=== PATIENT | female | born 1955 | race Asian ===

== ENCOUNTER 2018-12-23 18:42 | Inpatient (IN) | payer MEDICARE, OTHER ==
[~2018-12-23] VITALS: Ht 147.3 cm; Wt 86.4 kg
[2018-12-23 19:02] VITALS: Ht 147.3 cm; Wt 86.4 kg
[2018-12-23] MEDS ORDERED: ACETAMINOPHEN 650 MG SUPP PR ONE (19:30)
[2018-12-23] MEDS ORDERED: CEFTRIAXONE 1 GM/50 ML (PMX) 50 ML IVPB ONE (19:30)
[2018-12-23] MEDS ORDERED: ONDANSETRON 4 MG INJ IV STA (19:36)
--- NOTE | 2018-12-23 20:12 | ERD ---
ER Documentation Chief Complaint Chief Complaint BIB RA fr home: 2wks of fever, lethargy, cough, congestion HPI This is a 63-year-old woman brought in by EMS from home for fever and vomiting beginning today in about 2 to 3 days of cough and congestion. Daughters were later at the bedside state that today she has been feeling very weak and has had multiple episodes of clear nonbloody nonbilious emesis. Patient has had no complaints of chest pain, no diarrhea, no headache or blurry vision, no loss of consciousness. Patient was transported here dyspneic and febrile ROS All systems reviewed and are negative except as per history of present illness. Allergies Allergies: Coded Allergies: ciprofloxacin (Verified Allergy, Unknown, 12/23/18) hydromorphone (Verified Allergy, Unknown, 12/23/18) hydroxychloroquine (Verified Allergy, Unknown, 12/23/18) PMhx/Soc History of CHF, atrial fibrillation currently using apixaban, history of renal insufficiency recently discontinued hydrochlorothiazide, obesity, diabetes mellitus, hypertension FmHx Family History: No diabetes Physical Exam Vitals Vital Signs Date Temp Pulse Resp B/P (MAP) Pulse Ox O2 O2 Flow FiO2 Time Delivery Rate 12/23/18 103.0 19:35 12/23/18 103.3 115 22 190/90 80 19:02 (123) Physical Exam GENERAL: Well-developed, well-nourished, nauseous, dehydrated, febrile. HEENT: Patient has facial edema, pupils equal round reactive to light, no cervical spine deformity or tenderness, no Kernig sign NEURO: Alert and oriented 3, cranial nerves II through XII intact bilaterally, pupils equal round reactive to light CARDIAC: Tachycardic and regular, no murmurs rubs or gallops LUNGS: Poor breath sounds bilaterally, crackles, no wheezing or stridor ABDOMEN: Soft nontender, no guarding, no rigidity, no rebound, no psoas sign no obturator sign. SKIN: Warm and dry to touch, no abrasions, contusions, or hematomas, no lacerations, no ecchymosis, no target lesions, and without ulcers EXTREMITIES: No clubbing cyanosis, 3+ pitting edema in the lower extremities kyler aterally, calves symmetrical PSYCH: Normal affect without agitation or irritability Result Diagram: 5/26/19 1900 5/26/19 1900 Results 24 hrs Laboratory Tests Test 12/23/18 19:00 12/23/18 19:06 12/23/18 19:24 White Blood Count 11.1 10^3/ul Red Blood Count 3.71 10^6/ul Hemoglobin 11.4 g/dl Hematocrit 37.2 % Mean Corpuscular Volume 100.3 fl Mean Corpuscular Hemoglobin 30.7 pg Mean Corpuscular 30.6 g/dl Hemoglobin Concent Red Cell Distribution Width 14.7 % Platelet Count 196 10^3/UL Mean Platelet Volume 10.5 fl Immature Granulocytes % 0.400 % Neutrophils % 77.8 % Lymphocytes % 12.0 % Monocytes % 8.6 % Eosinophils % 0.7 % Basophils % 0.5 % Nucleated Red Blood Cells % 0.0 /100WBC Immature Granulocytes # 0.040 10^3/ul Neutrophils # 8.6 10^3/ul Lymphocytes # 1.3 10^3/ul Monocytes # 1.0 10^3/ul Eosinophils # 0.1 10^3/ul Basophils # 0.1 10^3/ul Nucleated Red Blood Cells # 0.0 10^3/ul Prothrombin Time 14.4 Sec Prothrombin Time Ratio 1.1 INR International 1.11 Normalized Ratio Activated Partial Thromboplast 36.3 Sec Time Sodium Level 139 mmol/L Potassium Level 3.4 mmol/L Chloride Level 103 mmol/L Carbon Dioxide Level 28 mmol/L Anion Gap 8 Blood Urea Nitrogen 20 mg/dl Creatinine 1.09 mg/dl Est Glomerular Filtrat 51 mL/min Rate mL/min Glucose Level 171 mg/dl Lactic Acid Level 2.2 mmol/L Calcium Level 9.1 mg/dl Total Bilirubin 1.0 mg/dl Direct Bilirubin 0.00 mg/dl Indirect Bilirubin 1.0 mg/dl Aspartate Amino 127 IU/L Transf (AST/SGOT) Alanine 81 IU/L Aminotransferase (ALT/SGPT) Alkaline Phosphatase 308 IU/L Troponin I 1.150 ng/ml B-Type Natriuretic Peptide 3690 PG/ML Total Protein 7.4 g/dl Albumin 3.9 g/dl Globulin 3.50 g/dl Albumin/Globulin Ratio 1.11 Lipase 147 U/L POC Venous Lactate 1.9 mmol/L Urine Color YELLOW Urine Clarity CLEAR Urine pH 5.0 Urine Specific [place] 1.012 Urine Ketones NEGATIVE mg/dL Urine Nitrite NEGATIVE mg/dL Urine Bilirubin NEGATIVE mg/dL Urine Urobilinogen 1+ mg/dL Urine Leukocyte Esterase NEGATIVE Rajni/ul Urine Microscopic RBC 5 /HPF Urine Microscopic WBC 5 /HPF Urine Bacteria FEW /HPF Urine Hemoglobin 2+ mg/dL Urine Glucose NEGATIVE mg/dL Urine Total Protein 3+ mg/dl Current Medications Medications Dose Sig/Amilcar Start Time Status Last (Trade) Ordered Route PRN Stop Time Admin Dose Reason Admin 650 mg ONCE ONCE 12/23/18 DC 12/23/18 Acetaminophen [place] 19:30 19:35 (Tylenol 12/23/18 19:31 Supp) Ceftriaxone 50 ml @ ONCE ONCE 12/23/18 DC 12/23/18 Sodium 100 mls/hr IVPB 19:30 19:35 12/23/18 19:59 Ondansetron 4 mg ONCE STAT 12/23/18 DC 12/23/18 HCl (Zofran IV 19:36 19:46 Inj) 12/23/18 19:37 Procedures/MDM IV line was established patient was placed on monitor worker rhythm strip revealed a sinus rhythm at about 90 bpm with upright P and T waves. Patient was febrile, blood and urine cultures have been ordered results are pending I will follow-up. 1 view chest x-ray performed, read by me revealed cardiomegaly and bilateral pulmonary edema possible left lower lobe infiltrate as well, no pneumothorax, no air under the diaphragm. EKG #1 performed, read by me reveals a normal sinus rhythm at 93 bpm, normal axis, narrow QRS complex, no concerning ST elevations or depressions noted, diffuse flattened T waves IV fluids will be held as I suspect decompensated heart failure and pulmonary edema. CBC was within normal limits, electrolytes revealed BUN/creatinine of 20/1, liver function tests unremarkable, troponin positive at 1.2, BNP elevated at about 4000, lactic acid level number one 2.2, second level 1.9 Flu swabs were negative. I administered ceftriaxone 1 g IV, acetaminophen per rectum for fever, Zofran 4 mg IV for nausea and vomiting. Patient was also given aspirin 300 mg per rectum for cardioprotective measures. Patient's infectious symptoms have not stabilized and the patient is at risk of rapid decompensation. The patient will be admitted for careful hydration, antibiotic therapy, and infectious source control. SEVERE SEPSIS CRITERIA: Infectious source: Pulmonary End organ damage indicated by: Lactate > 2.0 mmol/L And respiratory failure requiring BiPAP therapy SEPSIS MANAGEMENT Time of recognition of sepsis: Upon arrival. Time of recognition of severe sepsis: No severe sepsis at this time. Time of recognition of septic shock: No septic shock at this time. 3 HOUR BUNDLE Blood cultures x 2 before broad-spectrum antibiotics: Yes 30 ml/kg NS bolus not administered Initial lactate 2.2 Repeat lactate 1.9 SEPTIC SHOCK ASSESSMENT: No lactic acid > 4.0 No persistent hypotension (SBP < 90 or 40 mmHg drop, MAP < 65) despite 30 mL/kg IV fluid bolus VOLUME REASSESSMENT FOR SEPTIC SHOCK: Reevaluation Time: 2009 Temp 99.9 F, BP 180/90, pulse 80 bpm, respiratory rate 20 breaths/min, oxygen saturation 96% Heart regular rate & rhythm Lungs poor breath sounds bilaterally, crackles Skin warm & dry Cap Refill less than 2 seconds Peripheral pulses radially present PERSISTENT HYPOTENSION TREATMENT: Comfort care no Central line not Required Vasopressor started not required I considered further perfusion assessment with CVP measurement, SCVO2, bedside ultrasound volume assessment, passive leg raise, trial of further fluid bolus. And proceeded with 30 ml/kg fluid bolus of NSS, broad spectrum antibiotics, and admission. CRITICAL CARE: Critical care time 55 minutes, this was time separate from other billable pro cedures. Emergent fluid management while maintaining close respiratory support. Provision of immediate and broad-spectrum antibiotic therapy. Simultaneous assessment for possible sources in order to direct targeted therapy. Consideration for invasive and chemical support to prevent cardiopulmonary collapse. Critical care time is independent of procedures performed. Accepting Care Team: Current data and ongoing care discussed. Time: Time of admission Primary Provider: Hospitalist Consulting: Cardiology, infectious disease Outstanding Data: none EKG #2 performed, read by me revealed a normal sinus rhythm at 83 bpm, normal axis, narrow QS complex, no concerning ST elevations or depressions noted diffuse flattened T waves Departure Diagnosis: Primary Impression: Sepsis Sepsis type: sepsis due to unspecified organism Qualified Codes: A41.9 - Sepsis, unspecified organism Additional Impressions: Non-STEMI (non-ST elevated myocardial infarction) CHF (congestive heart failure) Heart failure type: combined systolic and diastolic Heart failure chronicity: acute Qualified Codes: I50.41 - Acute combined systolic (congestive) and diastolic (congestive) heart failure Condition: Serious ADRIAN HANCOCK MD December 23, 2018 20:12
[2018-12-23] MEDS ORDERED: ACETAMINOPHEN 650MG/20.3ML CUP PO PRN (20:30)
[2018-12-23] MEDS ORDERED: ASPIRIN 81 MG TAB PO ONE (20:30)
[2018-12-23] MEDS ORDERED: ENOXAPARIN 40 MG/0.4 ML SYG SC SCH (20:30)
[2018-12-23] MEDS ORDERED: ALBUTEROL/IPRATROPIUM (NEB) 3 ML AMP NEB PRN (20:30)
[2018-12-23] MEDS ORDERED: VANCOMYCIN IV PER PHARMACY XX SCH (20:30)
[2018-12-23] MEDS ORDERED: ASPIRIN 300 MG SUPP PR ONE (20:30)
[2018-12-23] MEDS ORDERED: NITROGLYCERIN (SL) 0.4 MG TAB SL PRN (20:30)
[2018-12-23] MEDS ORDERED: FUROSEMIDE 40 MG INJ IV ONE (20:30)
[2018-12-23] MEDS ORDERED: VANCOMYCIN HCL 1.5 GM in SOD CHLORIDE 0.9% 250 ML IVPB SCH (21:30)
[2018-12-23 21:58] VITALS: PULSE 78
--- NOTE | 2018-12-23 22:08 | HP ---
Date/Time of Note Date/Time of Note DATE: 12/23/18 TIME: 22:08 Assessment/Plan VTE Prophylaxis Pharmacological prophylaxis: heparin Lines/Catheters IV Catheter Type (from Nrs): Saline Lock Assessment/Plan Assessment/Plan 1. Positive troponin: NSTEMI vs sepsis -Will be admitted to ICU -Treatment dose Lovenox -IV antibiotic -Serial troponin -2D echo -Follow-up culture results -Cardiology consult 2. Sepsis: as evidenced by fever and tachycardia as well as lactic acidosis: Likely secondary to pneumonia -IV antibiotic -Trend lactate -Gentle hydration, given chest x-ray findings -Follow-up culture results 3. CHF -Will diurese -Follow-up 2D echo 4. Hypertensive urgency: Adjust antihypertensive as needed 5. History of A-fib: Rate controlled, sinus 6. Right lower extremity healing ulcer: Patient on antibiotic 7. Rheumatoid arthritis: Pain management, supportive care Result Diagram: 12/23/18 1900 12/23/180 Results 24hrs Laboratory Tests Test 12/23/18 19:00 12/23/18 19:06 12/23/18 19:24 12/23/18 20:55 White Blood Count 11.1 H Red Blood Count 3.71 L Hemoglobin 11.4 L Hematocrit 37.2 Mean Corpuscular 100.3 Volume Mean Corpuscular 30.7 Hemoglobin Mean Corpuscular 30.6 L Hemoglobin Concent Red Cell 14.7 H Distribution Width Platelet Count 196 Mean Platelet Volume 10.5 H Immature 0.400 Granulocytes % Neutrophils % 77.8 H Lymphocytes % 12.0 L Monocytes % 8.6 Eosinophils % 0.7 Basophils % 0.5 Nucleated Red Blood 0.0 Cells % Immature 0.040 H Granulocytes # Neutrophils # 8.6 H Lymphocytes # 1.3 Monocytes # 1.0 H Eosinophils # 0.1 Basophils # 0.1 Nucleated Red Blood 0.0 Cells # Prothrombin Time 14.4 Prothrombin Time 1.1 Ratio INR International 1.11 Normalized Ratio Activated 36.3 H Partial Thromboplast Time Sodium Level 139 Potassium Level 3.4 L Chloride Level 103 Carbon Dioxide Level 28 Anion Gap 8 Blood Urea Nitrogen 20 Creatinine 1.09 H Est Glomerular 51 L Filtrat Rate mL/min Glucose Level 171 Lactic Acid Level 2.2 *H 1.6 Calcium Level 9.1 Total Bilirubin 1.0 Direct Bilirubin 0.00 Indirect Bilirubin 1.0 Aspartate Amino 127 H Transf (AST/SGOT) Alanine 81 H Aminotransferase (AL T/SGPT) Alkaline Phosphatase 308 H Troponin I 1.150 *H B-Type Natriuretic 3690 H Peptide Total Protein 7.4 Albumin 3.9 Globulin 3.50 H Albumin/Globulin 1.11 Ratio Lipase 147 POC Venous Lactate 1.9 Urine Color YELLOW Urine Clarity CLEAR Urine pH 5.0 Urine Specific 1.012 [place] Urine Ketones NEGATIVE Urine Nitrite NEGATIVE Urine Bilirubin NEGATIVE Urine Urobilinogen 1+ H Urine Leukocyte NEGATIVE Esterase Urine Microscopic 5 RBC Urine Microscopic 5 WBC Urine Bacteria FEW A Urine Hemoglobin 2+ H Urine Glucose NEGATIVE Urine Total Protein 3+ H HPI/ROS Admit Date/Time Admit Date/Time Hx of Present Illness Patient is a 63-year-old female with a history of hypertension, atrial fibrillation, rheumatoid arthritis who was brought to the ER for fever, cough and generalized weakness. Denied chest pain. Reported some shortness of breath. She also reported vomiting, nonbloody nonbilious. When presented to ER, she was febrile with a temperature of 103.3, heart rate 115, oxygen saturation 80% on room air. Labs shows a troponin of 1.15, lactic acid 2.2, creatinine 1.09, WBC 11. Chest x-ray shows bilateral hazy opacity, likely interstitial edema done and pneumonia. Chest x-ray also shows cardiomegaly and central pulmonary vascular congestion. PMH/Family/Social Past Medical History Medical History: other (See HPI) Coded Allergies: Penicillins (Verified Allergy, Unknown, rash, 05/28/17) Past Surgical History Past Surgical Hx: other (See HPI) Family History Significant Family History: no pertinent family hx Social History Alcohol Use: none Smoking Status: Never smoker Drug Use: none Exam Constitutional: other (No acute distress) Head: normocephalic Eyes: PERRL Respiratory: normal air movement Cardiovascular: regular rate and rhythm Gastrointestinal: soft Extremities: edema Medications Current Medications Ondansetron HCl (Zofran Inj) 4 mg Q6H PRN IV NAUSEA AND/OR VOMITING; Start 12/23/18 at 20:30 Albuterol/ Ipratropium (Duoneb) 3 ml Q2H RESP THERAPY PRN NEB SHORTNESS OF BREATH; Start 12/23/18 at 20:30 Nitroglycerin (Nitroglycerin (Sl Tab) 0.4 Mg) 1 tab Q5M PRN SL CHEST PAIN; Start 12/23/18 at 20:30 Acetaminophen (Tylenol Liquid) 650 mg Q6H PRN PO PAIN LEVEL 1-3 OR FEVER; Start 12/23/18 at 20:30 Pantoprazole (Protonix Tab) 40 mg DAILY@06 PO ; Start 12/24/18 at 06:00 Enoxaparin Sodium (Lovenox) 40 mg DAILY SC Last administered on 12/23/18at 20:36; Admin Dose 40 MG; Start 12/23/18 at 20:30 Vancomycin HCl (Vanco Iv Per Pharmacy) VANCOMYCIN PER PHARMACY PER PROTOCOL XX ; Start 12/23/18 at 20:30 Vancomycin HCl 1.5 gm/Sodium Chloride 250 ml @ 83.333 mls/ hr Q24H IVPB Last administered on 12/23/18at 21:05; Admin Dose 83.333 MLS/HR; Start 12/23/18 at 21:30; Stop 12/24/18 at 05:59 Vancomycin/Sodium Chloride 250 ml @ 125 mls/hr Q12H IVPB ; Start 12/24/18 at 09:00 Coded Allergies: ciprofloxacin (Verified Allergy, Unknown, 12/23/18) hydromorphone (Verified Allergy, Unknown, 12/23/18) hydroxychloroquine (Verified Allergy, Unknown, 12/23/18) Social History Smoking Status: Never smoker Exam/Review of Systems Vital Signs Vitals Vital Signs Date Temp Pulse Resp B/P (MAP) Pulse Ox O2 O2 Flow FiO2 Time Delivery Rate 12/23/18 70 20 144/77 100 Room Air 21:51 (99) 12/23/18 40 21:34 12/23/18 102.4 20:44 WILLIE GLEASON MD December 23, 2018 22:08
[2018-12-23 22:12] VITALS: PULSE 72
[2018-12-23 23:00] VITALS: BP 109/75; PULSE 70; PULSE 72; RESP 20
[2018-12-24] VITALS (25 sets, daily range): BP systolic 96–148; BP diastolic 53–87; PULSE 60–70; RESP 13–24
[2018-12-24] MEDS: ONDANSETRON 4 MG INJ IV PRN ×2 (06:06→17:11)
[2018-12-24] MEDS: PANTOPRAZOLE (EC) 40 MG TAB PO SCH (06:07)
[2018-12-24] MEDS ORDERED: TRAM50TA PO (07:01)
[2018-12-24] MEDS ORDERED: PRED1TAB2 PO (07:01)
[2018-12-24] MEDS ORDERED: APIX2.5T PO (07:02)
[2018-12-24] MEDS ORDERED: AMIO100T4 PO (07:02)
[2018-12-24] MEDS ORDERED: GABA100C14 PO (07:02)
[2018-12-24] MEDS ORDERED: ERGO2000 PO (07:02)
[2018-12-24] MEDS ORDERED: LEFL10TA PO (07:03)
[2018-12-24] MEDS ORDERED: METO-319 PO (07:03)
[2018-12-24] MEDS ORDERED: ATOR20TA38 PO (07:04)
[2018-12-24] MEDS ORDERED: OXYB5TAB22 PO (07:04)
[2018-12-24] MEDS ORDERED: TOFA11TA PO (07:04)
[2018-12-24] MEDS ORDERED: LATA2.5D19 BOTH EYES (07:05)
[2018-12-24] MEDS ORDERED: DULA1.5P SQ (07:06)
[2018-12-24] MEDS ORDERED: INSU100I33 SC (07:06)
[2018-12-24] MEDS ORDERED: NOVO3I SC ×2 (07:06)
[2018-12-24] MEDS ORDERED: CLON-379 PO (07:07)
[2018-12-24] MEDS ORDERED: ENOXAPARIN 100 MG/ML SYG SC SCH (08:00)
[2018-12-24] MEDS ORDERED: VANCOMYCIN 750 MG (PMX) 250 ML IVPB SCH (09:00)
--- NOTE | 2018-12-24 09:25 | CONS ---
Assessment/Plan Assessment/Plan Hospital Course (Demo Recall) 63 yo presenting with high fever and reported sinus tachycardia (ekg not available), with rise and fall in troponin. Symptoms are not classic for a thrombotic [place], and this could be a demand-mediated troponin release, a type 2 [place]. Impression: Elevated troponin, most likely demand mediated type 2 [place] Fever and sepsis with possible pneumonia Hypertension, controlled at present Reported h/o paroxysmal afib, on apixaban Rheumatoid arthritis Acute renal insufficiency Recommendations: Treat underlying febrile illness Will resume home cardiac meds -- apixaban (which given her age and body size should be 5 mg, not 2.5 mg), amiodarone, metoprolol succinate, and atorvastatin Will give daily baby aspirin Also, as she takes daily prednisone, will resume her 3 mg daily. Will defer to the hospitalist to reorder her home meds, which was not done by the binder stripper hand. Lipid panel and a1c ordered for tomorrow Echo pending Lexiscan nuclear to evaluate for significant ischemia, versus coronary marga ography. Would hold off on cath given acute rise in creatinine overnight Consultation Date/Type/Reason Admit Date/Time Date of Consultation: December 24, 2018 Type of Consult Cardiology Reason for Consultation elevated troponin Requesting Provider: LESLIE PERES MD Date/Time of Note DATE: 12/24/18 TIME: 09:04 Hx of Present Illness 63 yo with obesity, rheumatoid arthritis, hypertension, diabetes, presents due to fever. Temp was 103 on presentation. She denies any chest pain or dyspnea. Most of her care is at [facility], and she was hospitalized there twice in October, once for "elevated BUN", and another time for nausea and vomiting. She has a rubber goods inspector tester who she follows up with for hypertension, she denies having a recent stress test, but recalls undergoing an adenosine test many years ago which she recalls as a terrible experience. She is not very active in her daily living, limited by pain from her rheumatoid arthritis. She denies prior WV or stents. At present she is comfortable Constitutional: no complaints Eyes: no complaints ENT: no complaints Respiratory: no complaints; No shortness of breath Cardiovascular: no complaints; No chest pain Gastrointestinal: no complaints Genitourinary: no complaints Musculoskeletal: bone/joint pain Skin: no complaints Neurologic: no complaints Endocrine: no complaints Lymphatic: no complaints Psychological: no complaints Immunologic: no complaints Past Medical History Medical History: diabetes, hypertension, other (rheumatoid arthritis, asthma, paroxysmal atrial fibrillation) Home Meds Reported Medications Clonidine Hcl* (Clonidine Hcl*) 0.1 Mg Tab, 0.1 MG PO PRN PRN for ELEVATED BLOOD PRESSURE, TAB IF SBP GREATER THAN 160 12/24/18 Dulaglutide (Trulicity) 1.5 Mg/0.5 Ml Pen.injctr, 1.5 MG SQ EVERY Monday12/24/18 Insulin Glargine,Hum.rec.anlog (Basaglar Kwikpen U-100) 100 Unit/1 Ml Insuln.pen, 13 UNIT SC QAM, EA 12/24/18 Insulin Aspart* (Novolog Insulin Pen*) 100 Unit/Ml Soln, 7 UNIT SC AC A, EA 12/24/18 Insulin Aspart* (Novolog Insulin Pen*) 100 Unit/Ml Soln, 0 SC .SLIDING SCALE AC, EA 12/24/18 Latanoprost (Xalatan) 2.5 Ml Drops, 1 DROP BOTH EYES QHS, #1 BOTTLE 12/24/18 Tofacitinib Citrate (Xeljanz Xr) 11 Mg Tab.er.24h, 11 MG PO DAILY 12/24/18 Atorvastatin Calcium* (Atorvastatin Calcium*) 20 Mg Tablet, 20 MG PO QHS, #30 TAB 12/24/18 Oxybutynin Chloride* (Ditropan* XL) 5 Mg Tabsr, 5 MG PO QHS, TAB.SA 12/24/18 Metoprolol Succinate* (Toprol XL*) 50 Mg Tab.er.24h, 50 MG PO BID, #30 TAB 12/24/18 Leflunomide* (Arava*) 10 Mg Tablet, 10 MG PO DAILY, TAB 12/24/18 Apixaban* (Eliquis*) 2.5 Mg Tablet, 2.5 MG PO BID, TAB 12/24/18 Amiodarone Hcl* (Amiodarone Hcl*) 100 Mg Tablet, 100 MG PO BID, #30 TAB 12/24/18 Gabapentin* (Gabapentin*) 100 Mg Capsule, 100 MG PO TID, #90 CAP 12/24/18 Ergocalciferol (Vitamin D2) (VITAMIN D2) 2,000 Unit Tablet, 2000 UNIT PO DAILY, TAB 12/24/18 Tramadol Hcl* (Ultram*) 50 Mg Tablet, 100 MG PO Q12 PRN for PAIN, TAB 12/24/18 Prednisone* (Prednisone*) 1 Mg Tablet, 3 MG PO DAILY, TAB 12/24/18 Medications Current Medications Ondansetron HCl (Zofran Inj) 4 mg Q6H PRN IV NAUSEA AND/OR VOMITING Last administered on 12/24/18at 06:06; Admin Dose 4 MG; Start 12/23/18 at 20:30 Albuterol/ Ipratropium (Duoneb) 3 ml Q2H RESP THERAPY PRN NEB SHORTNESS OF BREATH; Start 12/23/18 at 20:30 Nitroglycerin (Nitroglycerin (Sl Tab) 0.4 Mg) 1 tab Q5M PRN SL CHEST PAIN; Start 12/23/18 at 20:30 Acetaminophen (Tylenol Liquid) 650 mg Q6H PRN PO PAIN LEVEL 1-3 OR FEVER Last administered on 12/24/18at 06:07; Admin Dose 650 MG; Start 12/23/18 at 20:30 Pantoprazole (Protonix Tab) 40 mg DAILY@06 PO Last administered on 12/24/18at 06:07; Admin Dose 40 MG; Start 12/24/18 at 06:00 Vancomycin HCl (Vanco Iv Per Pharmacy) VANCOMYCIN PER PHARMACY PER PROTOCOL XX ; Start 12/23/18 at 20:30 Vancomycin/Sodium Chloride 250 ml @ 125 mls/hr Q12H IVPB ; Start 12/24/18 at 09:00 Enoxaparin Sodium (Lovenox) 85 mg Q24H SC Last administered on 12/24/18at 08:46; Admin Dose 85 MG; Start 12/24/18 at 08:00 Allergies: Coded Allergies: ciprofloxacin (Verified Allergy, Unknown, 12/23/18) hydromorphone (Verified Allergy, Unknown, 12/23/18) hydroxychloroquine (Verified Allergy, Unknown, 12/23/18) Family History Significant Family History: no pertinent family hx Social History Alcohol Use: none Smoking Status: Never smoker Exam/Review of Systems Vital Signs Vitals Vital Signs Date Temp Pulse Resp B/P (MAP) Pulse Ox O2 O2 Flow FiO2 Time Delivery Rate 12/24/18 98.8 08:46 12/24/18 64 19 114/62 99 Nasal 08:00 (79) Cannula 12/24/18 3.0 04:40 12/24/18 30 01:49 Intake and Output 12/23/18 12/23/18 12/24/18 1515:00 23:00 07:00 IntakeIntake Total 100 ml OutputOutput Total 320 ml BalanceBalance -220 ml Exam Constitutional: alert, oriented, other (obese) Psych: nl mood/affect Head: normocephalic, atraumatic Eyes: EOMI, nl lids, nl sclera ENMT: nl external ears & nose, nl lips & teeth, nl nasal mucosa & septum Neck: supple; No jvd, No bruits Respiratory: clear to auscultation, normal air movement Cardiovascular: regular rate and rhythm, nl pulses; No murmurs/extra sounds Gastrointestinal: soft, nl liver, spleen, non-tender Musculoskeletal: nl extremities to inspection Extremities: No normal pulses (absent dp and pt pulses) Neurological: nl mental status, nl speech Skin: nl turgor; No rash or lesions Lymph: nl lymph nodes Labs Result Diagram: 12/23/18 1900 12/24/18 0432 Results 24hrs Laboratory Tests Test 12/23/18 19:00 12/23/18 19:06 12/23/18 19:24 12/23/18 20:55 White Blood Count 11.1 H Red Blood Count 3.71 L Hemoglobin 11.4 L Hematocrit 37.2 Mean Corpuscular 100.3 Volume Mean Corpuscular 30.7 Hemoglobin Mean Corpuscular 30.6 L Hemoglobin Concen t Red Cell 14.7 H Distribution Width Platelet Count 196 Mean Platelet 10.5 H Volume Immature 0.400 Granulocytes % Neutrophils % 77.8 H Lymphocytes % 12.0 L Monocytes % 8.6 Eosinophils % 0.7 Basophils % 0.5 Nucleated Red 0.0 Blood Cells % Immature 0.040 H Granulocytes # Neutrophils # 8.6 H Lymphocytes # 1.3 Monocytes # 1.0 H Eosinophils # 0.1 Basophils # 0.1 Nucleated Red 0.0 Blood Cells # Prothrombin Time 14.4 Prothrombin Time 1.1 Ratio INR International 1.11 Normalized Ratio Activated 36.3 H Partial Thrombopl ast Time Sodium Level 139 Potassium Level 3.4 L Chloride Level 103 Carbon Dioxide 28 Level Anion Gap 8 Blood Urea 20 Nitrogen Creatinine 1.09 H Est Glomerular 51 L Filtrat Rate mL/min Glucose Level 171 Lactic Acid Level 2.2 *H 1.6 Calcium Level 9.1 Total Bilirubin 1.0 Direct Bilirubin 0.00 Indirect 1.0 Bilirubin Aspartate Amino 127 H Transf (AST/SGOT) Alanine 81 H Aminotransferase (ALT/SGPT) Alkaline 308 H Phosphatase Troponin I 1.150 *H B-Type 3690 H Natriuretic Peptide Total Protein 7.4 Albumin 3.9 Globulin 3.50 H Albumin/Globulin 1.11 Ratio Lipase 147 POC Venous 1.9 Lactate Urine Color YELLOW Urine Clarity CLEAR Urine pH 5.0 Urine Specific 1.012 [place] Urine Ketones NEGATIVE Urine Nitrite NEGATIVE Urine Bilirubin NEGATIVE Urine 1+ H Urobilinogen Urine Leukocyte NEGATIVE Esterase Urine Microscopic 5 RBC Urine Microscopic 5 WBC Urine Bacteria FEW A Urine Hemoglobin 2+ H Urine Glucose NEGATIVE Urine Total 3+ H Protein Test 12/23/18 23:03 12/24/18 00:00 12/24/18 04:32 Lactic Acid Level 1.5 Creatine Kinase 124 136 Creatine Kinase 1.0 1.0 Index Creatinine Kinase 1.19 1.32 MB (Mass) Troponin I 2.020 *H 1.680 *H Blood Gas Blood arterial Specimen Source Arterial Blood 12/23/2018 11:57: Date Drawn 57 AM Arterial Blood pH 7.436 (Temp corrected) Arterial Blood 38.4 pCO2 (Temp correct) Arterial Blood 119.3 H pO2 (Temp corrected) Arterial Blood 25.3 HCO3 Arterial Blood 1.1 Base Excess Arterial Blood 98.3 H Oxygen Saturation Jayson Test ACCEPTAB Arterial Blood Left Radial Gas Puncture Site Arterial 0.7 Blood Carboxyhemo globin Arterial Blood 0.3 Methemoglobin Blood Gas A-a O2 121.7 H Differential Oxyhemoglobin 97.3 Percent Blood Gas 37.0 Temperature Blood Gas 16.0 Respiration Rate Blood Gas Actual 14 Respiration Rate Blood Gas MASK - BIPAP Modality FiO2 40.0 Blood Gas 18/5 IPAP/EPAP Ratio Blood Gas S.H. Notified Whom Blood Gas 12/24/2018 12:01: Notified Time 00 AM Blood Urea 24 H Nitrogen Creatinine 1.45 H Medications Medications Current Medications Ondansetron HCl (Zofran Inj) 4 mg Q6H PRN IV NAUSEA AND/OR VOMITING Last administered on 12/24/18at 06:06; Admin Dose 4 MG; Start 12/23/18 at 20:30 Albuterol/ Ipratropium (Duoneb) 3 ml Q2H RESP THERAPY PRN NEB SHORTNESS OF BREATH; Start 12/23/18 at 20:30 Nitroglycerin (Nitroglycerin (Sl Tab) 0.4 Mg) 1 tab Q5M PRN SL CHEST PAIN; Start 12/23/18 at 20:30 Acetaminophen (Tylenol Liquid) 650 mg Q6H PRN PO PAIN LEVEL 1-3 OR FEVER Last administered on 12/24/18at 06:07; Admin Dose 650 MG; Start 12/23/18 at 20:30 Pantoprazole (Protonix Tab) 40 mg DAILY@06 PO Last administered on 12/24/18at 06:07; Admin Dose 40 MG; Start 12/24/18 at 06:00 Vancomycin HCl (Vanco Iv Per Pharmacy) VANCOMYCIN PER PHARMACY PER PROTOCOL XX ; Start 12/23/18 at 20:30 Vancomycin/Sodium Chloride 250 ml @ 125 mls/hr Q12H IVPB ; Start 12/24/18 at 09:00 Enoxaparin Sodium (Lovenox) 85 mg Q24H SC Last administered on 12/24/18at 08:46; Admin Dose 85 MG; Start 12/24/18 at 08:00 DONG MARLEY December 24, 2018 09:15
[2018-12-24] MEDS: AMIODARONE 200 MG TAB PO SCH (09:30)
[2018-12-24] MEDS: METOPROLOL (XL) 50 MG TAB PO SCH (09:30)
--- NOTE | 2018-12-24 09:44 | PN ---
Date/Time of Note Date/Time of Note DATE: 12/24/18 TIME: 09:43 Assessment/Plan VTE Prophylaxis SCD applied (from Nsg): Yes Pharmacological prophylaxis: apixaban Lines/Catheters IV Catheter Type (from Nrsg): Saline Lock Urinary Cath still in place: Yes Reason Cath still needed: terminal illness/intractable pain Assessment/Plan Assessment/Plan 1. NSTEMI - most likely demand type 2 - Trops elevated with downward trend - Cardiology consultation appreciated and will monitor and assess for need for lexiscan - Remains asymptomatic - ECHO ordered 2. Acute on chronic heart failure - ECHO ordered to assess systolic vs diastolic - BNP elevated - given dose of Lasix 3. Diabetes Mellitus - A1c noted and will hold off on continue Lantus and Novolog - ISS and accuchecks 4. Hypertensive urgency - resolved - now hypotensive and will add holding parameters to medications 5. History of A-fib - rate controlled - continue Eliquis 6. Rheumatoid arthritis - continue home medications 7. KASSIDY - may be cardiorenal - will monitor and if no improvement, will consult Nephrology - avoid nephrotoxic agents 8. Disposition - If remains stable, will downgrade to telemetry Result Diagram: 12/23/18 1900 12/24/18 0432 Results 24hrs Laboratory Tests Test 12/23/18 19:00 12/23/18 19:06 12/23/18 19:24 12/23/18 20:55 White Blood Count 11.1 H Red Blood Count 3.71 L Hemoglobin 11.4 L Hematocrit 37.2 Mean Corpuscular 100.3 Volume Mean Corpuscular 30.7 Hemoglobin Mean Corpuscular 30.6 L Hemoglobin Concen t Red Cell 14.7 H Distribution Width Platelet Count 196 Mean Platelet 10.5 H Volume Immature 0.400 Granulocytes % Neutrophils % 77.8 H Lymphocytes % 12.0 L Monocytes % 8.6 Eosinophils % 0.7 Basophils % 0.5 Nucleated Red 0.0 Blood Cells % Immature 0.040 H Granulocytes # Neutrophils # 8.6 H Lymphocytes # 1.3 Monocytes # 1.0 H Eosinophils # 0.1 Basophils # 0.1 Nucleated Red 0.0 Blood Cells # Prothrombin Time 14.4 Prothrombin Time 1.1 Ratio INR International 1.11 Normalized Ratio Activated 36.3 H Partial Thrombopl ast Time Sodium Level 139 Potassium Level 3.4 L Chloride Level 103 Carbon Dioxide 28 Level Anion Gap 8 Blood Urea 20 Nitrogen Creatinine 1.09 H Est Glomerular 51 L Filtrat Rate mL/min Glucose Level 171 Lactic Acid Level 2.2 *H 1.6 Calcium Level 9.1 Total Bilirubin 1.0 Direct Bilirubin 0.00 Indirect 1.0 Bilirubin Aspartate Amino 127 H Transf (AST/SGOT) Alanine 81 H Aminotransferase (ALT/SGPT) Alkaline 308 H Phosphatase Troponin I 1.150 *H B-Type 3690 H Natriuretic Peptide Total Protein 7.4 Albumin 3.9 Globulin 3.50 H Albumin/Globulin 1.11 Ratio Lipase 147 POC Venous 1.9 Lactate Urine Color YELLOW Urine Clarity CLEAR Urine pH 5.0 Urine Specific 1.012 [place] Urine Ketones NEGATIVE Urine Nitrite NEGATIVE Urine Bilirubin NEGATIVE Urine 1+ H Urobilinogen Urine Leukocyte NEGATIVE Esterase Urine Microscopic 5 RBC Urine Microscopic 5 WBC Urine Bacteria FEW A Urine Hemoglobin 2+ H Urine Glucose NEGATIVE Urine Total 3+ H Protein Test 12/23/18 23:03 12/24/18 00:00 12/24/18 04:32 Lactic Acid Level 1.5 Creatine Kinase 124 136 Creatine Kinase 1.0 1.0 Index Creatinine Kinase 1.19 1.32 MB (Mass) Troponin I 2.020 *H 1.680 *H Blood Gas Blood arterial Specimen Source Arterial Blood 12/23/2018 11:57: Date Drawn 57 AM Arterial Blood pH 7.436 (Temp corrected) Arterial Blood 38.4 pCO2 (Temp correct) Arterial Blood 119.3 H pO2 (Temp corrected) Arterial Blood 25.3 HCO3 Arterial Blood 1.1 Base Excess Arterial Blood 98.3 H Oxygen Saturation Jayson Test ACCEPTAB Arterial Blood Left Radial Gas Puncture Site Arterial 0.7 Blood Carboxyhemo globin Arterial Blood 0.3 Methemoglobin Blood Gas A-a O2 121.7 H Differential Oxyhemoglobin 97.3 Percent Blood Gas 37.0 Temperature Blood Gas 16.0 Respiration Rate Blood Gas Actual 14 Respiration Rate Blood Gas MASK - BIPAP Modality FiO2 40.0 Blood Gas 18/5 IPAP/EPAP Ratio Blood Gas S.H. Notified Whom Blood Gas 12/24/2018 12:01: Notified Time 00 AM Blood Urea 24 H Nitrogen Creatinine 1.45 H Subjective 24 Hr Interval Summary Free Text/Dictation Patient states shes feeling very tired and weak. Concerning about continuing ho il medications for her Rheumatoid arthritis. Denies any chest pain or difficulty breathing. Exam/Review of Systems Exam Vitals Vital Signs Date Temp Pulse Resp B/P (MAP) Pulse Ox O2 O2 Flow FiO2 Time Delivery Rate 12/24/18 98.8 08:46 12/24/18 64 19 114/62 99 Nasal 08:00 (79) Cannula 12/24/18 2.0 08:00 12/24/18 30 01:49 Intake and Output 12/23/18 12/23/18 12/24/18 1515:00 23:00 07:00 IntakeIntake Total 100 ml OutputOutput Total 320 ml BalanceBalance -220 ml Exam General: Patient is pleasant, currently lying in bed, fatigued. no acute distress Neck: Supple Chest: Nontender Lungs: Clear to auscultation bilaterally, no wheezing or rhonchi Heart: Normal S1-S2, Regular rhythm and rate. No murmur, S3, or S4 Abdomen: Soft , nontender, nondistended , bowel sounds are present. No guarding no rebound tenderness Extremities: Normal to inspection, no edema no cyanosis Results Results 24hrs Laboratory Tests Test 12/23/18 19:00 12/23/18 19:06 12/23/18 19:24 12/23/18 20:55 White Blood Count 11.1 H Red Blood Count 3.71 L Hemoglobin 11.4 L Hematocrit 37.2 Mean Corpuscular 100.3 Volume Mean Corpuscular 30.7 Hemoglobin Mean Corpuscular 30.6 L Hemoglobin Concen t Red Cell 14.7 H Distribution Width Platelet Count 196 Mean Platelet 10.5 H Volume Immature 0.400 Granulocytes % Neutrophils % 77.8 H Lymphocytes % 12.0 L Monocytes % 8.6 Eosinophils % 0.7 Basophils % 0.5 Nucleated Red 0.0 Blood Cells % Immature 0.040 H Granulocytes # Neutrophils # 8.6 H Lymphocytes # 1.3 Monocytes # 1.0 H Eosinophils # 0.1 Basophils # 0.1 Nucleated Red 0.0 Blood Cells # Prothrombin Time 14.4 Prothrombin Time 1.1 Ratio INR International 1.11 Normalized Ratio Activated 36.3 H Partial Thrombopl ast Time Sodium Level 139 Potassium Level 3.4 L Chloride Level 103 Carbon Dioxide 28 Level Anion Gap 8 Blood Urea 20 Nitrogen Creatinine 1.09 H Est Glomerular 51 L Filtrat Rate mL/min Glucose Level 171 Lactic Acid Level 2.2 *H 1.6 Calcium Level 9.1 Total Bilirubin 1.0 Direct Bilirubin 0.00 Indirect 1.0 Bilirubin Aspartate Amino 127 H Transf (AST/SGOT) Alanine 81 H Aminotransferase (ALT/SGPT) Alkaline 308 H Phosphatase Troponin I 1.150 *H B-Type 3690 H Natriuretic Peptide Total Protein 7.4 Albumin 3.9 Globulin 3.50 H Albumin/Globulin 1.11 Ratio Lipase 147 POC Venous 1.9 Lactate Urine Color YELLOW Urine Clarity CLEAR Urine pH 5.0 Urine Specific 1.012 [place] Urine Ketones NEGATIVE Urine Nitrite NEGATIVE Urine Bilirubin NEGATIVE Urine 1+ H Urobilinogen Urine Leukocyte NEGATIVE Esterase Urine Microscopic 5 RBC Urine Microscopic 5 WBC Urine Bacteria FEW A Urine Hemoglobin 2+ H Urine Glucose NEGATIVE Urine Total 3+ H Protein Test 12/23/18 23:03 12/24/18 00:00 12/24/18 04:32 Lactic Acid Level 1.5 Creatine Kinase 124 136 Creatine Kinase 1.0 1.0 Index Creatinine Kinase 1.19 1.32 MB (Mass) Troponin I 2.020 *H 1.680 *H Blood Gas Blood arterial Specimen Source Arterial Blood 12/23/2018 11:57: Date Drawn 57 AM Arterial Blood pH 7.436 (Temp corrected) Arterial Blood 38.4 pCO2 (Temp correct) Arterial Blood 119.3 H pO2 (Temp corrected) Arterial Blood 25.3 HCO3 Arterial Blood 1.1 Base Excess Arterial Blood 98.3 H Oxygen Saturation Jayson Test ACCEPTAB Arterial Blood Left Radial Gas Puncture Site Arterial 0.7 Blood Carboxyhemo globin Arterial Blood 0.3 Methemoglobin Blood Gas A-a O2 121.7 H Differential Oxyhemoglobin 97.3 Percent Blood Gas 37.0 Temperature Blood Gas 16.0 Respiration Rate Blood Gas Actual 14 Respiration Rate Blood Gas MASK - BIPAP Modality FiO2 40.0 Blood Gas 18/5 IPAP/EPAP Ratio Blood Gas S.H. Notified Whom Blood Gas 12/24/2018 12:01: Notified Time 00 AM Blood Urea 24 H Nitrogen Creatinine 1.45 H Medications Medication Current Medications Ondansetron HCl (Zofran Inj) 4 mg Q6H PRN IV NAUSEA AND/OR VOMITING Last administered on 12/24/18at 06:06; Admin Dose 4 MG; Start 12/23/18 at 20:30 Albuterol/ Ipratropium (Duoneb) 3 ml Q2H RESP THERAPY PRN NEB SHORTNESS OF BREATH; Start 12/23/18 at 20:30 Nitroglycerin (Nitroglycerin (Sl Tab) 0.4 Mg) 1 tab Q5M PRN SL CHEST PAIN; Start 12/23/18 at 20:30 Acetaminophen (Tylenol Liquid) 650 mg Q6H PRN PO PAIN LEVEL 1-3 OR FEVER Last administered on 12/24/18at 06:07; Admin Dose 650 MG; Start 12/23/18 at 20:30 Pantoprazole (Protonix Tab) 40 mg DAILY@06 PO Last administered on 12/24/18at 06:07; Admin Dose 40 MG; Start 12/24/18 at 06:00 Vancomycin HCl (Vanco Iv Per Pharmacy) VANCOMYCIN PER PHARMACY PER PROTOCOL XX ; Start 12/23/18 at 20:30 Apixaban (Eliquis) 5 mg BID PO ; Start 12/24/18 at 21:00 Amiodarone HCl (Cordarone) 100 mg DAILY PO ; Start 12/24/18 at 09:30 Metoprolol Succinate (Toprol Xl) 50 mg DAILY PO ; Start 12/24/18 at 09:30 Prednisone (Prednisone) 3 mg DAILY PO ; Start 12/24/18 at 10:00 Aspirin (Aspirin) 81 mg DAILY PO ; Start 12/24/18 at 09:30 Tramadol HCl (Ultram) 100 mg Q12 PO ; Start 12/24/18 at 10:00 Leflunomide (Arava) 10 mg DAILY PO ; Start 12/24/18 at 10:00 Gabapentin (Neurontin) 100 mg BID PO ; Start 12/24/18 at 10:00 LESLIE PERES MD December 24, 2018 09:44
[2018-12-24] MEDS: ASPIRIN 81 MG TAB PO SCH (09:49)
[2018-12-24] MEDS: GABAPENTIN 100 MG CAP PO SCH ×2 (09:49→20:52)
[2018-12-24] MEDS: traMADol 50 MG TAB PO SCH ×2 (09:50→20:53)
[2018-12-24] MEDS ORDERED: LEFLUNOMIDE 10 MG TAB PO SCH (10:00)
[2018-12-24] MEDS ORDERED: GLUCAGON 1 MG INJ IM PRN (10:30)
[2018-12-24] MEDS ORDERED: DEXTROSE 50% 50 ML SYRINGE IV PRN ×2 (10:30)
[2018-12-24] MEDS ORDERED: GLUCOSE GEL 15 GRAM TUBE PO PRN ×2 (10:30)
[2018-12-24] MEDS ORDERED: GLUCOSE GEL 15 GRAM TUBE BUCCAL PRN (10:30)
[2018-12-24] MEDS ORDERED: INSULIN GLARGINE [LANTus] (100 UNITS/ML) SYG SC SCH ×2 (11:00)
[2018-12-24] MEDS ORDERED: INSULIN ASPART [NOVOLOG] 3 ML PEN SC SCH (11:00)
[2018-12-24] MEDS: predniSONE 1 MG TAB PO SCH (11:03)
[2018-12-24] MEDS: INSULIN ASPART [NOVOLOG] 3 ML PEN SC SCH ×3 (11:30→20:53)
[2018-12-24] MEDS: XELJANZ 11 MG PO SCH (14:56)
[2018-12-24] MEDS: LEFLUNOMIDE 20 MG PO SCH (14:58)
[2018-12-24] MEDS: POLYETHYLENE GLYCOL 17 GM PACKET PO SCH (16:30)
[2018-12-24] MEDS ORDERED: ALBUMIN HUMAN 25% 50 ML IV ONE (18:30)
[2018-12-24] MEDS ORDERED: FUROSEMIDE 20 MG INJ IV ONE (18:30)
[2018-12-24] MEDS: VANCOMYCIN 1 GM 250 ML IVPB SCH (20:51)
[2018-12-24] MEDS: DOCUSATE SODIUM 100 MG CAP PO SCH (20:52)
[2018-12-24] MEDS: APIXABAN 5 MG TABLET PO SCH (20:52)
[2018-12-24] MEDS ORDERED: VANCOMYCIN HCL 1.25 GM in SOD CHLORIDE 0.9% 250 ML IVPB SCH (21:00)
[2018-12-25] VITALS (20 sets, daily range): BP systolic 104–182; BP diastolic 49–86; PULSE 40–78; RESP 12–24
[2018-12-25] MEDS: ONDANSETRON 4 MG INJ IV PRN (04:15)
[2018-12-25] MEDS: PANTOPRAZOLE (EC) 40 MG TAB PO SCH (05:50)
[2018-12-25] MEDS: INSULIN ASPART [NOVOLOG] 3 ML PEN SC SCH ×4 (07:35→21:00)
[2018-12-25] MEDS: ASPIRIN 81 MG TAB PO SCH (08:19)
[2018-12-25] MEDS: AMIODARONE 200 MG TAB PO SCH (08:20)
[2018-12-25] MEDS: METOPROLOL (XL) 50 MG TAB PO SCH (08:22)
[2018-12-25] MEDS ORDERED: INSULIN GLARGINE [LANTus] (100 UNITS/ML) SYG SC SCH (09:00)
[2018-12-25] MEDS ORDERED: MAGNESIUM SULFATE 1 GM/D5W 100 ML IVPB ONE ×2 (10:00)
--- NOTE | 2018-12-25 10:09 | PN ---
Date/Time of Note Date/Time of Note DATE: 12/25/18 TIME: 10:09 Assessment/Plan VTE Prophylaxis Risk score (from Nsg)>0 risk: 10 SCD applied (from Nsg): Yes Pharmacological prophylaxis: apixaban Lines/Catheters IV Catheter Type (from Nrsg): Saline Lock Urinary Cath still in place: Yes Reason Cath still needed: terminal illness/intractable pain Assessment/Plan Assessment/Plan 1. NSTEMI - most likely demand type 2 - Trops downward trending and no chest pain - Cardiology consultation appreciated and patient refusing stress test at this time. May reconsider 2. Acute on chronic heart failure - ECHO results noted with preserved EF - BNP elevated 3. Diabetes Mellitus - A1c noted and no need for standing insulin at this time - ISS and accuchecks 4. Hypertensive urgency - resolved 5. History of A-fib - rate controlled - continue Eliquis 6. Rheumatoid arthritis - continue home medications 7. KASSIDY - Nephrology consultation placed for further recommendations given Cr increasing - may be cardiorenal vs ATN from sepsis - avoid nephrotoxic agents 8. Constipation - bowel regime PRN - most likely etiology of nausea with vomiting 9. Disposition - If vitals remain stable, will downgrade to telemetry Result Diagram: 12/25/18 0434 12/25/18 0434 Results 24hrs Laboratory Tests Test 12/24/18 11:51 12/24/18 17:14 12/24/18 20:35 12/25/18 04:34 Bedside Glucose 100 114 103 White Blood Count 7.7 # Red Blood Count 3.25 L Hemoglobin 10.0 L Hematocrit 33.2 L Mean Corpuscular 102.2 H Volume Mean Corpuscular 30.8 Hemoglobin Mean Corpuscular 30.1 L Hemoglobin Concent Red Cell 14.6 H Distribution Width Platelet Count 145 # Mean Platelet Volume 10.9 H Immature 0.300 Granulocytes % Neutrophils % 75.2 Lymphocytes % 13.0 L Monocytes % 9.5 Eosinophils % 1.7 Basophils % 0.3 Nucleated Red Blood 0.0 Cells % Immature 0.020 Granulocytes # Neutrophils # 5.8 Lymphocytes # 1.0 Monocytes # 0.7 Eosinophils # 0.1 Basophils # 0.0 Nucleated Red Blood 0.0 Cells # Sodium Level 142 Potassium Level 3.6 Chloride Level 104 Carbon Dioxide Level 30 Anion Gap 8 Blood Urea Nitrogen 28 H Creatinine 1.62 H Est Glomerular 32 L Filtrat Rate mL/min Glucose Level 92 # Calcium Level 8.6 Magnesium Level 1.9 Total Bilirubin 0.9 Direct Bilirubin 0.00 Indirect Bilirubin 0.9 Aspartate Amino 62 H Transf (AST/SGOT) Alanine 72 H Aminotransferase (AL T/SGPT) Alkaline Phosphatase 222 H Creatine Kinase 114 Creatine Kinase 2.4 Index Creatinine Kinase MB 2.69 H (Mass) Troponin I 0.864 *H Total Protein 5.9 #L Albumin 3.3 Globulin 2.60 Albumin/Globulin 1.26 Ratio Triglycerides Level 97 Cholesterol Level 127 LDL Cholesterol, 61 Calculated HDL Cholesterol 47 Cholesterol/HDL 2.7 Ratio Test 12/25/18 08:17 Bedside Glucose 83 Subjective 24 Hr Interval Summary Free Text/Dictation Patient complaining of nausea with vomiting. She is refusing cardiac stress test given fear of adenosine in setting of asthma. She felt as if she was "dying" during last stress test. Denies any chest pain. Still with constipation. Exam/Review of Systems Exam Vitals Vital Signs Date Temp Pulse Resp B/P (MAP) Pulse Ox O2 O2 Flow FiO2 Time Delivery Rate 12/25/18 2.0 08:02 12/25/18 99.9 76 20 169/74 100 Nasal 08:00 (105) Cannula 12/24/18 30 01:49 Intake and Output 12/24/18 12/24/18 12/25/18 1515:00 23:00 07:00 IntakeIntake Total 320 ml 300 ml 250 ml OutputOutput Total 220 ml 410 ml 398 ml BalanceBalance 100 ml -110 ml -148 ml Exam General: Patient is pleasant, currently lying in bed, fatigued. distress from nausea Neck: Supple Chest: Nontender Lungs: Clear to auscultation bilaterally, no wheezing or rhonchi Heart: Normal S1-S2, Regular rhythm and rate. No murmur, S3, or S4 Abdomen: Soft , nontender, nondistended , bowel sounds are present. No guarding no rebound tenderness Extremities: Normal to inspection, no edema no cyanosis Results Results 24hrs Laboratory Tests Test 12/24/18 11:51 12/24/18 17:14 12/24/18 20:35 12/25/18 04:34 Bedside Glucose 100 114 103 White Blood Count 7.7 # Red Blood Count 3.25 L Hemoglobin 10.0 L Hematocrit 33.2 L Mean Corpuscular 102.2 H Volume Mean Corpuscular 30.8 Hemoglobin Mean Corpuscular 30.1 L Hemoglobin Concent Red Cell 14.6 H Distribution Width Platelet Count 145 # Mean Platelet Volume 10.9 H Immature 0.300 Granulocytes % Neutrophils % 75.2 Lymphocytes % 13.0 L Monocytes % 9.5 Eosinophils % 1.7 Basophils % 0.3 Nucleated Red Blood 0.0 Cells % Immature 0.020 Granulocytes # Neutrophils # 5.8 Lymphocytes # 1.0 Monocytes # 0.7 Eosinophils # 0.1 Basophils # 0.0 Nucleated Red Blood 0.0 Cells # Sodium Level 142 Potassium Level 3.6 Chloride Level 104 Carbon Dioxide Level 30 Anion Gap 8 Blood Urea Nitrogen 28 H Creatinine 1.62 H Est Glomerular 32 L Filtrat Rate mL/min Glucose Level 92 # Calcium Level 8.6 Magnesium Level 1.9 Total Bilirubin 0.9 Direct Bilirubin 0.00 Indirect Bilirubin 0.9 Aspartate Amino 62 H Transf (AST/SGOT) Alanine 72 H Aminotransferase (AL T/SGPT) Alkaline Phosphatase 222 H Creatine Kinase 114 Creatine Kinase 2.4 Index Creatinine Kinase MB 2.69 H (Mass) Troponin I 0.864 *H Total Protein 5.9 #L Albumin 3.3 Globulin 2.60 Albumin/Globulin 1.26 Ratio Triglycerides Level 97 Cholesterol Level 127 LDL Cholesterol, 61 Calculated HDL Cholesterol 47 Cholesterol/HDL 2.7 Ratio Test 12/25/18 08:17 Bedside Glucose 83 Medications Medication Current Medications Ondansetron HCl (Zofran Inj) 4 mg Q6H PRN IV NAUSEA AND/OR VOMITING Last administered on 12/25/18at 04:15; Admin Dose 4 MG; Start 12/23/18 at 20:30 Albuterol/ Ipratropium (Duoneb) 3 ml Q2H RESP THERAPY PRN NEB SHORTNESS OF BREATH; Start 12/23/18 at 20:30 Nitroglycerin (Nitroglycerin (Sl Tab) 0.4 Mg) 1 tab Q5M PRN SL CHEST PAIN; Start 12/23/18 at 20:30 Acetaminophen (Tylenol Liquid) 650 mg Q6H PRN PO PAIN LEVEL 1-3 OR FEVER Last administered on 12/24/18at 06:07; Admin Dose 650 MG; Start 12/23/18 at 20:30 Pantoprazole (Protonix Tab) 40 mg DAILY@06 PO Last administered on 12/25/18 05:50; Admin Dose 40 MG; Start 12/24/18 at 06:00 Vancomycin HCl (Vanco Iv Per Pharmacy) VANCOMYCIN PER PHARMACY PER PROTOCOL XX ; Start 12/23/18 at 20:30 Apixaban (Eliquis) 5 mg BID PO Last administered on 12/24/18 20:52; Admin Dose 5 MG; Start 12/24/18 at 21:00 Amiodarone HCl (Cordarone) 100 mg DAILY PO Last administered on 12/25/18 08:20; Admin Dose 100 MG; Start 12/24/18 at 09:30 Metoprolol Succinate (Toprol Xl) 50 mg DAILY PO Last administered on 12/25/18 08:22; Admin Dose 50 MG; Start 12/24/18 at 09:30 Prednisone (Prednisone) 3 mg DAILY PO Last administered on 12/24/18 11:03; Admin Dose 3 MG; Start 12/24/18 at 10:00 Aspirin (Aspirin) 81 mg DAILY PO Last administered on 12/25/18 08:19; Admin Dose 81 MG; Start 12/24/18 at 09:30 Tramadol HCl (Ultram) 100 mg Q12 PO Last administered on 12/24/18 20:53; Admin Dose 100 MG; Start 12/24/18 at 10:00 Gabapentin (Neurontin) 100 mg BID PO Last administered on 12/24/18 20:52; Admin Dose 100 MG; Start 12/24/18 at 10:00 Insulin Aspart (Novolog Insulin Pen) NOVOLOG *MILD* ALGORITHM WITH MEALS BEDTIME SC ; Start 12/24/18 at 11:30 Vancomycin HCl 250 ml @ 125 mls/hr Q24H IVPB Last administered on 12/24/18 20:51; Admin Dose 125 MLS/HR; Start 12/24/18 at 21:00 Patient Own Medication 1 ea DAILY PO Last administered on 12/24/18 14:56; Admin Dose 1 EA; Start 12/24/18 at 14:00 Miscellaneous Information 1 ea NOTE XX ; Start 12/24/18 at 10:30 Glucose (Glutose) 15 gm Q15M PRN PO DECREASED GLUCOSE; Start 12/24/18 at 10:30 Glucose (Glutose) 22.5 gm Q15M PRN PO DECREASED GLUCOSE; Start 12/24/18 at 10:30 Dextrose (D50w Syringe) 25 ml Q15M PRN IV DECREASED GLUCOSE; Start 12/24/18 at 10:30 Dextrose (D50w Syringe) 50 ml Q15M PRN IV DECREASED GLUCOSE; Start 12/24/18 at 10:30 Glucagon (Glucagen) 1 mg Q15M PRN IM DECREASED GLUCOSE; Start 12/24/18 at 10:30 Glucose (Glutose) 15 gm Q15M PRN BUCCAL DECREASED GLUCOSE; Start 12/24/18 at 10:30 Non-Formulary Medication 0.5 ea DAILY PO Last administered on 12/24/18at 14:58; Admin Dose 0.5 EA; Start 12/24/18 at 14:00 Polyethylene Glycol (Miralax) 17 gm DAILY PO ; Start 12/24/18 at 16:30 Docusate Sodium (Colace) 100 mg BID PO Last administered on 12/24/18at 20:52; Admin Dose 100 MG; Start 12/24/18 at 21:00 Potassium Chloride 100 ml @ 50 mls/hr Q2H IVPB ; Start 12/25/18 at 10:00; Stop 12/25/18 at 13:59 Magnesium Sulfate/ Dextrose 100 ml @ 100 mls/hr ONCE ONCE IVPB ; Start 12/25/18 at 10:00; Stop 12/25/18 at 10:59 Dextrose/Sodium Chloride 1,000 ml @ 20 mls/hr Q24H IV ; Start 12/25/18 at 10:30; Status LESLIE JARRETT MD December 25, 2018 10:09
[2018-12-25] MEDS: DEXTROSE 5%-0.45% NACL 1,000 ML IV SCH (10:19)
--- NOTE | 2018-12-25 11:16 | RADRPT ---
Echocardiogram Report Patient Name: TETO SHIELDSPatient ID: [id number] : 1955 (63y 8m)Study Date: 12/25/2018 9:20:16 AM Gender: FAccession #: [id number] Tech: NathanielSamir Daniel [facility] Location: 118 Ref.Physician: WILLIE GLEASON Height(Cm): BSA: Weight(Kg): Quality: AdequateOrder Physician: WILLIE GLEASON Account #: Procedures: Echocardiographic Report: Transthoracic echocardiogram with complete 2D, M-Mode, and doppler examination. Indications: Positive Troponin. Measurements: 2D/M Mode Doppler Measurement Value Normal Range Measurement Value Normal Range LVIDd 2D 5.0 [ 3.8 - 5.2 ] cm AV Peak Vladimir 2.5 [ 100.0 - 170.0 ] cm/sec LVIDs 2D 2.3 [ 2.2 - 3.5 ] cm AV Peak PG 25.0 [ 2.0 - 9.0 ] mmHg LVPWd 2D 1.4 [ 0.6 - 0.9 ] cm AI Peak PG 54.0 mmHg IVSd 2D 1.2 [ 0.6 - 0.9 ] cm AI Peak Vladimir 3.7 cm/sec AoR Diam 2D 3.0 [ 2.3 - 3.1 ] cm AI PHT 625.0 msec EDV 2D 116.0 [ 46.0 - 106.0 ] ml LVOT Peak Vladimir 1.6 [ 70.0 - 110.0 ] cm/sec ESV 2D 17.1 [ 14.0 - 42.0 ] ml LVOT Peak PG 11.0 [ 2.0 - 6.0 ] mmHg EF 2D 85.3 [ 54.0 - 74.0 ] percent MV E Peak Vladimir 0.9 [ 60.0 - 130.0 ] cm/sec LA Dimen 2D 3.4 [ 2.7 - 3.8 ] cm MV A Peak Vladimir 1.0 [ 100.0 - 120.0 ] cm/sec MV E/A 0.9 [ 0.8 - 1.5 ] ratio MV Decel Time 331 [ 104 - 258 ] msec Lat E` Vladimir 0.1 [ 10.0 - 15.0 ] cm/sec Lateral E/E` 15.0 [ 1.0 - 2.0 ] ratio MV E/A 0.9 [ 0.8 - 1.5 ] ratio Findings: Left Ventricle: Normal left ventricular systolic function. Normal left ventricular cavity size. Moderate concentric left ventricular hypertrophy. Ejection fraction is visually estimated at 60 %. Tissue Doppler/Mitral Doppler indices are consistent with impaired relaxation (Stage I diastolic dysfunction). Right Ventricle: Normal right ventricular size. Normal right ventricular systolic function. Left Atrium: The left atrium is normal in size. Right Atrium: The right atrium is normal in size. Mitral Valve: Mitral valve leaflets appear mildly thickened. Mild mitral annular calcification. Trace mitral regurgitation. Aortic Valve: No hemodynamically significant aortic stenosis by doppler. Aortic cusps appear mildly calcified. Mild aortic valve regurgitation. Tricuspid Valve: Normal appearance of the tricuspid valve. Unable to obtain RVSP due to minimal presence of tricuspid regurgitation. Pulmonic Valve: Normal pulmonic valve appearance. Pericardium: Normal pericardium with no significant pericardial effusion. Aorta: Normal aortic root. IVC: Normal size and normal respiratory collapse consistent with normal right atrial pressure. Conclusions: Normal left ventricular systolic function. Normal left ventricular cavity size. Moderate concentric left ventricular hypertrophy. Ejection fraction is visually estimated at 60 %. Tissue Doppler/Mitral Doppler indices are consistent with impaired relaxation (Stage I diastolic dysfunction). Mitral valve leaflets appear mildly thickened. Mild mitral annular calcification. Trace mitral regurgitation. No hemodynamically significant aortic stenosis by doppler. Aortic cusps appear mildly calcified. Mild aortic valve regurgitation. Normal appearance of the tricuspid valve. Unable to obtain RVSP due to minimal presence of tricuspid regurgitation. Electronically Signed By: Presley Gonzalez 2018-12-25 11:15:29 PDT
--- NOTE | 2018-12-25 12:33 | CONS ---
Consult Date/Type/Reason Admit Date/Time December 23, 2018 at 20:05 Initial Consult Date 12/24/18 Type of Consultation: cv Requesting Provider: LESLIE PERES MD Date/Time of Note DATE: 12/25/18 TIME: 12:31 Subjective Interventional cardiology follow-up progress note Subjective: Discussed with the staff and telemetry was reviewed patient remains sinus rhythm no chest pain or pressure no palpitation. Discussed with son. Patient does not want to have a stress test done. She says she has had a very bad experience with adenosine stress test previously. Objective: General: Obese female in no acute distress HEENT: NC/AT. pupils are equal. round. NECK: NO JVD. no stridor. CV: RRR. systolic murmur; no gallop or rubs. PULM: no wheezing or rhonchi. GI: SOFT, NT, ND, no rebound or guarding Extremity: trace B/L LE edema. no clubbing. neuro: awake and alert, OX3. Psych: calm and pleasant rectal: deferred Echocardiogram has shown: Normal left ventricular systolic function. Normal left ventricular cavity size. Moderate concentric left ventricular hypertrophy. Ejection fraction is visually estimated at 60 %. Tissue Doppler/Mitral Doppler indices are consistent with impaired relaxation (Stage I diastolic dysfunction). Mitral valve leaflets appear mildly thickened. Mild mitral annular calcification. Trace mitral regurgitation. No hemodynamically significant aortic stenosis by doppler. Aortic cusps appear mildly calcified. Mild aortic valve regurgitation. Normal appearance of the tricuspid valve. Unable to obtain RVSP due to minimal presence of tricuspid regurgitation. Objective Vitals Vital Signs Date Temp Pulse Resp B/P (MAP) Pulse Ox O2 O2 Flow FiO2 Time Delivery Rate 12/25/18 2.0 08:02 12/25/18 99.9 76 20 169/74 100 Nasal 08:00 (105) Cannula 12/24/18 30 01:49 Intake and Output 12/24/18 12/24/18 12/25/18 1515:00 23:00 07:00 IntakeIntake Total 320 ml 300 ml 250 ml OutputOutput Total 220 ml 410 ml 398 ml BalanceBalance 100 ml -110 ml -148 ml Results/Medications Result Diagram: 12/25/18 0434 12/25/18 0434 Results 24 hrs Laboratory Tests Test 12/24/18 17:14 12/24/18 20:35 12/25/18 04:34 12/25/18 08:17 Bedside Glucose 114 103 83 White Blood Count 7.7 # Red Blood Count 3.25 L Hemoglobin 10.0 L Hematocrit 33.2 L Mean Corpuscular 102.2 H Volume Mean Corpuscular 30.8 Hemoglobin Mean Corpuscular 30.1 L Hemoglobin Concent Red Cell 14.6 H Distribution Width Platelet Count 145 # Mean Platelet Volume 10.9 H Immature 0.300 Granulocytes % Neutrophils % 75.2 Lymphocytes % 13.0 L Monocytes % 9.5 Eosinophils % 1.7 Basophils % 0.3 Nucleated Red Blood 0.0 Cells % Immature 0.020 Granulocytes # Neutrophils # 5.8 Lymphocytes # 1.0 Monocytes # 0.7 Eosinophils # 0.1 Basophils # 0.0 Nucleated Red Blood 0.0 Cells # Sodium Level 142 Potassium Level 3.6 Chloride Level 104 Carbon Dioxide Level 30 Anion Gap 8 Blood Urea Nitrogen 28 H Creatinine 1.62 H Est Glomerular 32 L Filtrat Rate mL/min Glucose Level 92 # Calcium Level 8.6 Magnesium Level 1.9 Total Bilirubin 0.9 Direct Bilirubin 0.00 Indirect Bilirubin 0.9 Aspartate Amino 62 H Transf (AST/SGOT) Alanine 72 H Aminotransferase (AL T/SGPT) Alkaline Phosphatase 222 H Creatine Kinase 114 Creatine Kinase 2.4 Index Creatinine Kinase MB 2.69 H (Mass) Troponin I 0.864 *H Total Protein 5.9 #L Albumin 3.3 Globulin 2.60 Albumin/Globulin 1.26 Ratio Triglycerides Level 97 Cholesterol Level 127 LDL Cholesterol, 61 Calculated HDL Cholesterol 47 Cholesterol/HDL 2.7 Ratio Home Meds Reported Medications Clonidine Hcl* (Clonidine Hcl*) 0.1 Mg Tab, 0.1 MG PO PRN PRN for ELEVATED BLOOD PRESSURE, TAB IF SBP GREATER THAN 160 12/24/18 Dulaglutide (Trulicity) 1.5 Mg/0.5 Ml Pen.injctr, 1.5 MG SQ EVERY Monday12/24/18 Insulin Glargine,Hum.rec.anlog (Basaglar Kwikpen U-100) 100 Unit/1 Ml Insuln.pen, 13 UNIT SC QAM, EA 12/24/18 Insulin Aspart* (Novolog Insulin Pen*) 100 Unit/Ml Soln, 7 UNIT SC AC A, EA 12/24/18 Insulin Aspart* (Novolog Insulin Pen*) 100 Unit/Ml Soln, 0 SC .SLIDING SCALE AC, EA 12/24/18 Latanoprost (Xalatan) 2.5 Ml Drops, 1 DROP BOTH EYES QHS, #1 BOTTLE 12/24/18 Tofacitinib Citrate (Xeljanz Xr) 11 Mg Tab.er.24h, 11 MG PO DAILY 12/24/18 Atorvastatin Calcium* (Atorvastatin Calcium*) 20 Mg Tablet, 20 MG PO QHS, #30 TAB 12/24/18 Oxybutynin Chloride* (Ditropan* XL) 5 Mg Tabsr, 5 MG PO QHS, TAB.SA 12/24/18 Metoprolol Succinate* (Toprol XL*) 50 Mg Tab.er.24h, 50 MG PO BID, #30 TAB 12/24/18 Leflunomide* (Arava*) 10 Mg Tablet, 10 MG PO DAILY, TAB 12/24/18 Apixaban* (Eliquis*) 2.5 Mg Tablet, 2.5 MG PO BID, TAB 12/24/18 Amiodarone Hcl* (Amiodarone Hcl*) 100 Mg Tablet, 100 MG PO BID, #30 TAB 12/24/18 Gabapentin* (Gabapentin*) 100 Mg Capsule, 100 MG PO TID, #90 CAP 12/24/18 Ergocalciferol (Vitamin D2) (VITAMIN D2) 2,000 Unit Tablet, 2000 UNIT PO DAILY, TAB 12/24/18 Tramadol Hcl* (Ultram*) 50 Mg Tablet, 100 MG PO Q12 PRN for PAIN, TAB 12/24/18 Prednisone* (Prednisone*) 1 Mg Tablet, 3 MG PO DAILY, TAB 12/24/18 Medications Current Medications Ondansetron HCl (Zofran Inj) 4 mg Q6H PRN IV NAUSEA AND/OR VOMITING Last administered on 12/25/18at 04:15; Admin Dose 4 MG; Start 12/23/18 at 20:30 Albuterol/ Ipratropium (Duoneb) 3 ml Q2H RESP THERAPY PRN NEB SHORTNESS OF BREATH; Start 12/23/18 at 20:30 Nitroglycerin (Nitroglycerin (Sl Tab) 0.4 Mg) 1 tab Q5M PRN SL CHEST PAIN; Start 12/23/18 at 20:30 Acetaminophen (Tylenol Liquid) 650 mg Q6H PRN PO PAIN LEVEL 1-3 OR FEVER Last administered on 12/24/18 06:07; Admin Dose 650 MG; Start 12/23/18 at 20:30 Pantoprazole (Protonix Tab) 40 mg DAILY@06 PO Last administered on 12/25/18 05:50; Admin Dose 40 MG; Start 12/24/18 at 06:00 Vancomycin HCl (Vanco Iv Per Pharmacy) VANCOMYCIN PER PHARMACY PER PROTOCOL XX ; Start 12/23/18 at 20:30 Apixaban (Eliquis) 5 mg BID PO Last administered on 12/24/18 20:52; Admin Dose 5 MG; Start 12/24/18 at 21:00 Amiodarone HCl (Cordarone) 100 mg DAILY PO Last administered on 12/25/18 08:20; Admin Dose 100 MG; Start 12/24/18 at 09:30 Metoprolol Succinate (Toprol Xl) 50 mg DAILY PO Last administered on 12/25/18 08:22; Admin Dose 50 MG; Start 12/24/18 at 09:30 Prednisone (Prednisone) 3 mg DAILY PO Last administered on 12/24/18 11:03; Admin Dose 3 MG; Start 12/24/18 at 10:00 Aspirin (Aspirin) 81 mg DAILY PO Last administered on 12/25/18 08:19; Admin Dose 81 MG; Start 12/24/18 at 09:30 Tramadol HCl (Ultram) 100 mg Q12 PO Last administered on 12/24/18 20:53; Admin Dose 100 MG; Start 12/24/18 at 10:00 Gabapentin (Neurontin) 100 mg BID PO Last administered on 12/24/18 20:52; Admin Dose 100 MG; Start 12/24/18 at 10:00 Insulin Aspart (Novolog Insulin Pen) NOVOLOG *MILD* ALGORITHM WITH MEALS BEDTIME SC ; Start 12/24/18 at 11:30 Vancomycin HCl 250 ml @ 125 mls/hr Q24H IVPB Last administered on 12/24/18 20:51; Admin Dose 125 MLS/HR; Start 12/24/18 at 21:00 Patient Own Medication 1 ea DAILY PO Last administered on 12/24/18 14:56; Admin Dose 1 EA; Start 12/24/18 at 14:00 Miscellaneous Information 1 ea NOTE XX ; Start 12/24/18 at 10:30 Glucose (Glutose) 15 gm Q15M PRN PO DECREASED GLUCOSE; Start 12/24/18 at 10:30 Glucose (Glutose) 22.5 gm Q15M PRN PO DECREASED GLUCOSE; Start 12/24/18 at 10:30 Dextrose (D50w Syringe) 25 ml Q15M PRN IV DECREASED GLUCOSE; Start 12/24/18 at 10:30 Dextrose (D50w Syringe) 50 ml Q15M PRN IV DECREASED GLUCOSE; Start 12/24/18 at 10:30 Glucagon (Glucagen) 1 mg Q15M PRN IM DECREASED GLUCOSE; Start 12/24/18 at 10:30 Glucose (Glutose) 15 gm Q15M PRN BUCCAL DECREASED GLUCOSE; Start 12/24/18 at 10:30 Non-Formulary Medication 0.5 ea DAILY PO Last administered on 12/24/18at 14:58; Admin Dose 0.5 EA; Start 12/24/18 at 14:00 Polyethylene Glycol (Miralax) 17 gm DAILY PO ; Start 12/24/18 at 16:30 Docusate Sodium (Colace) 100 mg BID PO Last administered on 12/24/18at 20:52; A dmin Dose 100 MG; Start 12/24/18 at 21:00 Potassium Chloride 100 ml @ 50 mls/hr Q2H IVPB ; Start 12/25/18 at 10:00; Stop 12/25/18 at 13:59 Dextrose/Sodium Chloride 1,000 ml @ 20 mls/hr Q24H IV Last administered on 12/25/18at 10:19; Admin Dose 20 MLS/HR; Start 12/25/18 at 10:30 Assessment/Plan Hospital Course (Demo Recall) 1. Abnormal troponin consistent with non-ST elevation myocardial infarction: Probably type II 2. Sepsis 3. Acute renal failure on chronic kidney disease 4. History of diabetes 5. Morbid obesity 6. Hypertension 7. History of proximal atrial fibrillation on Eliquis Recommendations: Different options discussed with patient including medical therapy versus stress testing versus coronary angiography. Given her lack of symptoms and her presentation with fever and infection and her renal failure I recommended her to have a stress test done to risk stratify the patient if positive would proceed with a coronary angiography. However at this point she does not want to have a stress test done she says she has had a very bad experience with adenosine stress test before. She is undecided about other treatment. For now we will try to optimize her medical therapy. Aspirin will be continued. Anticoagulation for now will be continued. If angiography is planned we will hold off on Eliquis Antibiotic management as per internal medicine thank you for this referral. We will continue to follow along with you EITAN EDMONDSON MD [facility] EITAN EDMONDSON MD December 25, 2018 12:33
[2018-12-25] MEDS: POTASSIUM CHLORIDE 100 ML IVPB SCH ×2 (13:04→15:06)
--- NOTE | 2018-12-25 14:47 | CONS ---
DATE OF ADMISSION: 12/23/2018 DATE OF CONSULTATION: 12/25/2018 TYPE OF CONSULTATION: Nephrology. REASON FOR CONSULTATION: Acute kidney injury. PHYSICIAN REQUESTING CONSULT: Trevor Gleason MD HISTORY OF PRESENT ILLNESS: This is a 63-year-old female with a past medical history of hypertension , history of AFib, history of rheumatoid arthritis, history of renal insufficiency, who presents to [facility] Emergency Room for generalized weakness. The patient states that she reports 1 to 2 days of shortness of breath including vomiting nonbloody, nonbilious. The patient upon arrival to the emergency room was noted to be febrile with temperature 100.3 and tachycardic to be hypoxemic re spiratory failure. The patient also had elevated lactic acid and chest x-ray at that time showed kyler ateral hazy opacities, edema and possible pneumonia. The patient also showed evidence of pulmonary v ascular congestion and cardiomegaly. The patient was subsequently transferred to intensive care unit , was given antibiotics and diuretic therapy. In terms of patient's renal history, the patient states that she has had episodes of acute kidney inj ury in the past. The patient does describe having chronic renal sufficiency but states that her crea tinine is not too elevated. She denies any hemoptysis, hematemesis or hematochezia. Denies any rash es. PAST MEDICAL HISTORY: As stated above, history of CKD, rheumatoid arthritis, history of AFib, histor y of hypertension, previous history of sepsis. FAMILY HISTORY: No family history of kidney disease. SOCIAL HISTORY: Does not drink, smoke or do drugs. MEDICATIONS: Have been reviewed. ALLERGIES: PLEASE SEE LIST. REVIEW OF SYSTEMS: A 14-point review of systems was conducted. Pertinent positives as stated in the HPI, otherwise negative. PHYSICAL EXAMINATION: VITAL SIGNS: Blood pressure is 169/74, respiratory rate 20, pulse 76, temperature 99.9. HEENT: Head is normocephalic. NECK: Supple. HEART: Tachycardic. LUNGS: Show diminished breath sounds at the base. ABDOMEN: Soft, nontender to palpation without rebound or guarding. EXTREMITIES: Negative for clubbing, cyanosis. Trace edema. DERMATOLOGIC: No rashes. MUSCULOSKELETAL: No joint effusions. NEUROLOGIC: No focal deficits. LABORATORY DATA: Have been reviewed. Urinalysis has been reviewed. IMAGING STUDIES: Have been reviewed. ASSESSMENT AND PLAN: This is a 63-year-old female who presents with: 1. Nonoliguric acute kidney injury on top of chronic kidney disease with unknown baseline creatinine . Etiology of acute kidney injury is multifactorial secondary to sepsis, hemodynamics. Possibility of tubular injury or interstitial nephritis is less likely. Low suspicion for acute glomerulonephrit is or vasculitis. Recommendation at this point is to repeat UA with microanalysis, check urine elect rolytes, calculate FENa and fractional excretion of urea. We would recommend to continue IV antibiot ics. We would continue supportive care, renally dose all meds. 2. Anemia. Monitor hemoglobin and hematocrit levels. 3. Mineral bone disorder. Monitor calcium and phosphorus levels. 4. Hypertension. Continue current blood pressure regimen. Defer any USAMA inhibitor, ARB in the sett ing of acute kidney injury. 5. Elevated troponin, possible non-ST elevation myocardial infarction type 1 versus type 2. Continu e to trend serial troponins. Follow up with cardiology. 6. Acute on chronic heart failure. The patient's 2D echo is pending. Continue to monitor. We woul d monitor renal function closely on diuretic therapy. 7. Diabetes. Continue current insulin regimen. 8. Atrial fibrillation. Continue medical management. 9. Rheumatoid arthritis. Continue current treatment plan. 10. Sepsis secondary to pneumonia. Continue current antibiotic regimen. Follow up cultures. Thank you, Dr. Brunson, for this interesting consult. It will be a pleasure to follow patient with yo u throughout the hospital course. Dictated By: AVE SOFIA DO NR/NTS Conf#: [id number] DID#: [id number] CC: LESLIE BRUNSON MD; TREVOR GLEASON MD; DONG MARLEY MD;*EndCC*
[2018-12-25] MEDS: POLYETHYLENE GLYCOL 17 GM PACKET PO SCH (14:53)
[2018-12-25] MEDS: DOCUSATE SODIUM 100 MG CAP PO SCH ×2 (14:53→21:31)
[2018-12-25] MEDS: predniSONE 1 MG TAB PO SCH (14:53)
[2018-12-25] MEDS: GABAPENTIN 100 MG CAP PO SCH ×2 (14:53→21:31)
[2018-12-25] MEDS: APIXABAN 5 MG TABLET PO SCH ×2 (14:54→21:31)
[2018-12-25] MEDS: LEFLUNOMIDE 20 MG PO SCH (14:55)
[2018-12-25] MEDS: XELJANZ 11 MG PO SCH (14:55)
[2018-12-25] MEDS: traMADol 50 MG TAB PO SCH ×2 (15:00→21:32)
[2018-12-25] MEDS ORDERED: BISACODYL 10 MG SUPP PR PRN (16:00)
[2018-12-25] MEDS: VANCOMYCIN 1 GM 250 ML IVPB SCH (21:32)
[2018-12-26] VITALS (14 sets, daily range): BP systolic 103–187; BP diastolic 53–86; PULSE 29–78; RESP 18–20
[2018-12-26] MEDS: ONDANSETRON 4 MG INJ IV PRN ×2 (00:17→12:36)
[2018-12-26] MEDS: PANTOPRAZOLE (EC) 40 MG TAB PO SCH (06:41)
[2018-12-26] MEDS: INSULIN ASPART [NOVOLOG] 3 ML PEN SC SCH ×4 (07:55→20:14)
--- NOTE | 2018-12-26 08:00 | CONS ---
Consult Date/Type/Reason Admit Date/Time December 23, 2018 at 20:05 Initial Consult Date 12/24/18 Type of Consultation: cv Requesting Provider: LESLIE PERES MD Date/Time of Note DATE: 12/26/18 TIME: 07:59 Subjective Interventional cardiology follow-up progress note Subjective: Discussed with the staff and telemetry was reviewed patient remains sinus rhythm no chest pain or pressure no palpitation. Patient does not want to have a stress test done. She says she has had a very bad experience with adenosine stress test previously. She just wants to go home and does not want to have any cardiac testing/procedures done Objective: General: Obese female in no acute distress HEENT: NC/AT. pupils are equal. round. NECK: NO JVD. no stridor. CV: RRR. systolic murmur; no gallop or rubs. PULM: no wheezing or rhonchi. GI: SOFT, NT, ND, no rebound or guarding Extremity: trace B/L LE edema. no clubbing. neuro: awake and alert, OX3. Psych: calm and pleasant rectal: deferred Echocardiogram has shown: Normal left ventricular systolic function. Normal left ventricular cavity size. Moderate concentric left ventricular hypertrophy. Ejection fraction is visually estimated at 60 %. Tissue Doppler/Mitral Doppler indices are consistent with impaired relaxation (Stage I diastolic dysfunction). Mitral valve leaflets appear mildly thickened. Mild mitral annular calcification. Trace mitral regurgitation. No hemodynamically significant aortic stenosis by doppler. Aortic cusps appear mildly calcified. Mild aortic valve regurgitation. Normal appearance of the tricuspid valve. Unable to obtain RVSP due to minimal presence of tricuspid regurgitation. Objective Vitals Vital Signs Date Temp Pulse Resp B/P (MAP) Pulse Ox O2 O2 Flow FiO2 Time Delivery Rate 12/26/18 99.0 68 18 162/69 96 Nasal 07:21 (100) Cannula 12/25/18 2.0 21:30 12/24/18 30 01:49 Intake and Output 12/25/18 12/25/18 12/26/18 1515:00 23:00 07:00 IntakeIntake Total 530 ml 230 ml 350 ml OutputOutput Total 470 ml 90 ml 450 ml BalanceBalance 60 ml 140 ml -100 ml Results/Medications Result Diagram: 12/26/18 0551 12/26/18 0551 Results 24 hrs Laboratory Tests Test 12/25/18 08:17 12/25/18 13:30 12/25/18 13:32 12/25/18 16:45 Bedside Glucose 83 104 104 Urine Color YELLOW Urine Clarity CLOUDY A Urine pH 5.0 Urine Specific 1.015 [place] Urine Ketones TRACE A Urine Nitrite NEGATIVE Urine Bilirubin NEGATIVE Urine Urobilinogen 1+ H Urine Leukocyte TRACE A Esterase Urine Microscopic 129 H RBC Urine Microscopic 29 H WBC Urine Bacteria FEW A Urine Mucus FEW A Urine Yeast FEW A (Budding) Urine Hemoglobin 3+ H Urine Random 116.47 Creatinine Urine Random Sodium 37 Urine Glucose NEGATIVE Urine Total Protein 86.0 H Test 12/25/18 21:29 12/26/18 05:51 12/26/18 07:46 Bedside Glucose 108 103 White Blood Count 5.3 # Red Blood Count 2.93 L Hemoglobin 9.0 L Hematocrit 30.0 L Mean Corpuscular 102.4 H Volume Mean Corpuscular 30.7 Hemoglobin Mean Corpuscular 30.0 L Hemoglobin Concent Red Cell 14.2 Distribution Width Platelet Count 140 Mean Platelet Volume 10.2 Immature 0.200 Granulocytes % Neutrophils % 69.3 Lymphocytes % 15.5 Monocytes % 11.9 H Eosinophils % 2.5 Basophils % 0.6 Nucleated Red Blood 0.0 Cells % Immature 0.010 Granulocytes # Neutrophils # 3.7 Lymphocytes # 0.8 Monocytes # 0.6 Eosinophils # 0.1 Basophils # 0.0 Nucleated Red Blood 0.0 Cells # Sodium Level 140 Potassium Level 3.8 Chloride Level 106 Carbon Dioxide Level 32 H Anion Gap 2 L Blood Urea Nitrogen 28 H Creatinine 1.47 H Est Glomerular 36 L Filtrat Rate mL/min Glucose Level 102 Calcium Level 8.6 Phosphorus Level 3.3 Magnesium Level 2.3 Total Bilirubin 0.7 Direct Bilirubin 0.00 Indirect Bilirubin 0.7 Aspartate Amino 38 Transf (AST/SGOT) Alanine 48 Aminotransferase (AL T/SGPT) Alkaline Phosphatase 174 H Total Protein 5.5 L Albumin 2.9 L Globulin 2.60 Albumin/Globulin 1.11 Ratio Home Meds Reported Medications Clonidine Hcl* (Clonidine Hcl*) 0.1 Mg Tab, 0.1 MG PO PRN PRN for ELEVATED BLOOD PRESSURE, TAB IF SBP GREATER THAN 160 12/24/18 Dulaglutide (Trulicity) 1.5 Mg/0.5 Ml Pen.injctr, 1.5 MG SQ EVERY Monday12/24/18 Insulin Glargine,Hum.rec.anlog (Ameenaaglar Barbpen U-100) 100 Unit/1 Ml Insuln.pen, 13 UNIT SC QAM, EA 12/24/18 Insulin Aspart* (Novolog Insulin Pen*) 100 Unit/Ml Soln, 7 UNIT SC AC A, EA 12/24/18 Insulin Aspart* (Novolog Insulin Pen*) 100 Unit/Ml Soln, 0 SC .SLIDING SCALE AC, EA 12/24/18 Latanoprost (Xalatan) 2.5 Ml Drops, 1 DROP BOTH EYES QHS, #1 BOTTLE 12/24/18 Tofacitinib Citrate (Xeljanz Xr) 11 Mg Tab.er.24h, 11 MG PO DAILY 12/24/18 Atorvastatin Calcium* (Atorvastatin Calcium*) 20 Mg Tablet, 20 MG PO QHS, #30 TAB 12/24/18 Oxybutynin Chloride* (Ditropan* XL) 5 Mg Tabsr, 5 MG PO QHS, TAB.SA 12/24/18 Metoprolol Succinate* (Toprol XL*) 50 Mg Tab.er.24h, 50 MG PO BID, #30 TAB 12/24/18 Leflunomide* (Arava*) 10 Mg Tablet, 10 MG PO DAILY, TAB 12/24/18 Apixaban* (Eliquis*) 2.5 Mg Tablet, 2.5 MG PO BID, TAB 12/24/18 Amiodarone Hcl* (Amiodarone Hcl*) 100 Mg Tablet, 100 MG PO BID, #30 TAB 12/24/18 Gabapentin* (Gabapentin*) 100 Mg Capsule, 100 MG PO TID, #90 CAP 12/24/18 Ergocalciferol (Vitamin D2) (VITAMIN D2) 2,000 Unit Tablet, 2000 UNIT PO DAILY, TAB 12/24/18 Tramadol Hcl* (Ultram*) 50 Mg Tablet, 100 MG PO Q12 PRN for PAIN, TAB 12/24/18 Prednisone* (Prednisone*) 1 Mg Tablet, 3 MG PO DAILY, TAB 12/24/18 Medications Current Medications Ondansetron HCl (Zofran Inj) 4 mg Q6H PRN IV NAUSEA AND/OR VOMITING Last administered on 12/26/18at 00:17; Admin Dose 4 MG; Start 12/23/18 at 20:30 Albuterol/ Ipratropium (Duoneb) 3 ml Q2H RESP THERAPY PRN NEB SHORTNESS OF BREATH; Start 12/23/18 at 20:30 Nitroglycerin (Nitroglycerin (Sl Tab) 0.4 Mg) 1 tab Q5M PRN SL CHEST PAIN; Start 12/23/18 at 20:30 Acetaminophen (Tylenol Liquid) 650 mg Q6H PRN PO PAIN LEVEL 1-3 OR FEVER Last administered on 12/24/18 06:07; Admin Dose 650 MG; Start 12/23/18 at 20:30 Pantoprazole (Protonix Tab) 40 mg DAILY@06 PO Last administered on 12/26/18 06:41; Admin Dose 40 MG; Start 12/24/18 at 06:00 Vancomycin HCl (Vanco Iv Per Pharmacy) VANCOMYCIN PER PHARMACY PER PROTOCOL XX ; Start 12/23/18 at 20:30 Apixaban (Eliquis) 5 mg BID PO Last administered on 12/25/18 21:31; Admin Dose 5 MG; Start 12/24/18 at 21:00 Amiodarone HCl (Cordarone) 100 mg DAILY PO Last administered on 12/25/18 08:20; Admin Dose 100 MG; Start 12/24/18 at 09:30 Metoprolol Succinate (Toprol Xl) 50 mg DAILY PO Last administered on 12/25/18 08:22; Admin Dose 50 MG; Start 12/24/18 at 09:30 Prednisone (Prednisone) 3 mg DAILY PO Last administered on 12/25/18at 14:53; Admin Dose 3 MG; Start 12/24/18 at 10:00 Aspirin (Aspirin) 81 mg DAILY PO Last administered on 12/25/18 08:19; Admin Dose 81 MG; Start 12/24/18 at 09:30 Tramadol HCl (Ultram) 100 mg Q12 PO Last administered on 12/25/18 21:32; Admin Dose 100 MG; Start 12/24/18 at 10:00 Gabapentin (Neurontin) 100 mg BID PO Last administered on 12/25/18 21:31; Admin Dose 100 MG; Start 12/24/18 at 10:00 Insulin Aspart (Novolog Insulin Pen) NOVOLOG *MILD* ALGORITHM WITH MEALS BEDTIME SC ; Start 12/24/18 at 11:30 Vancomycin HCl 250 ml @ 125 mls/hr Q24H IVPB Last administered on 12/25/18at 21:32; Admin Dose 125 MLS/HR; Start 12/24/18 at 21:00 Patient Own Medication 1 ea DAILY PO Last administered on 12/25/18at 14:55; Admi n Dose 1 EA; Start 12/24/18 at 14:00 Miscellaneous Information 1 ea NOTE XX ; Start 12/24/18 at 10:30 Glucose (Glutose) 15 gm Q15M PRN PO DECREASED GLUCOSE; Start 12/24/18 at 10:30 Glucose (Glutose) 22.5 gm Q15M PRN PO DECREASED GLUCOSE; Start 12/24/18 at 10:30 Dextrose (D50w Syringe) 25 ml Q15M PRN IV DECREASED GLUCOSE; Start 12/24/18 at 10:30 Dextrose (D50w Syringe) 50 ml Q15M PRN IV DECREASED GLUCOSE; Start 12/24/18 at 10:30 Glucagon (Glucagen) 1 mg Q15M PRN IM DECREASED GLUCOSE; Start 12/24/18 at 10:30 Glucose (Glutose) 15 gm Q15M PRN BUCCAL DECREASED GLUCOSE; Start 12/24/18 at 10:30 Polyethylene Glycol (Miralax) 17 gm DAILY PO Last administered on 12/25/18at 14:53; Admin Dose 17 GM; Start 12/24/18 at 16:30 Docusate Sodium (Colace) 100 mg BID PO Last administered on 12/25/18at 21:31; Admin Dose 100 MG; Start 12/24/18 at 21:00 Dextrose/Sodium Chloride 1,000 ml @ 20 mls/hr Q24H IV Last administered on 12/25/18at 10:19; Admin Dose 20 MLS/HR; Start 12/25/18 at 10:30 Bisacodyl (Dulcolax Supp) 10 mg DAILY PRN [place] CONSTIPATION; Start 12/25/18 at 16:00 Leflunomide (Arava) 10 mg DAILY PO ; Start 12/26/18 at 09:00 Assessment/Plan Hospital Course (Demo Recall) 1. Abnormal troponin consistent with non-ST elevation myocardial infarction: Probably type II. Given her risk factors including diabetes coronary artery disease cannot be ruled out 2. Sepsis 3. Acute renal failure on chronic kidney disease 4. History of diabetes 5. Morbid obesity 6. Hypertension 7. History of proximal atrial fibrillation on Eliquis Recommendations: Different options discussed with patient including medical therapy versus stress testing versus coronary angiography. Given her lack of symptoms and her presentation with fever and infection and her renal failure I recommended her to have a stress test done to risk stratify the patient if positive would proceed with a coronary angiography. However at this point she does not want to have a stress test done she says she has had a very bad experience with adenosine stress test before. We will continue with the optimal position of her medical therapy only at this point given her request Aspirin will be continued. Anticoagulation for now will be continued. Antibiotic management as per internal medicine thank you for this referral. We will continue to follow along with you EITAN EDMONDSON MD [facility] EITAN EDMONDSON MD December 26, 2018 08:00
[2018-12-26] MEDS: GABAPENTIN 100 MG CAP PO SCH ×2 (08:40→20:17)
[2018-12-26] MEDS: predniSONE 1 MG TAB PO SCH (08:40)
[2018-12-26] MEDS: POLYETHYLENE GLYCOL 17 GM PACKET PO SCH (08:40)
[2018-12-26] MEDS: XELJANZ 11 MG PO SCH (08:40)
[2018-12-26] MEDS: ASPIRIN 81 MG TAB PO SCH (08:41)
[2018-12-26] MEDS: APIXABAN 5 MG TABLET PO SCH ×2 (08:41→20:17)
[2018-12-26] MEDS: AMIODARONE 200 MG TAB PO SCH (08:41)
[2018-12-26] MEDS: METOPROLOL (XL) 50 MG TAB PO SCH (08:41)
[2018-12-26] MEDS: DOCUSATE SODIUM 100 MG CAP PO SCH ×2 (08:41→20:17)
--- NOTE | 2018-12-26 09:04 | RADRPT ---
Vent Rate: 58 bpm RR Interval: 1028 msec SC Interval: 182 msec QRS Duration: 106 msec QT Interval: 597 msec QTC Interval: 589 msec P-R-T Buckner: -49 - 5 - 22 degrees Sinus or ectopic atrial rhythm... Anteroseptal infarct, age indeterminate... Prolonged QT interval...QTc >500mS Electronically Signed By: Mio Garcia
[2018-12-26] MEDS: traMADol 50 MG TAB PO SCH ×2 (09:20→20:18)
[2018-12-26] MEDS: LEFLUNOMIDE 20 MG TAB PO SCH (09:47)
[2018-12-26] MEDS: DEXTROSE 5%-0.45% NACL 1,000 ML IV SCH (09:47)
--- NOTE | 2018-12-26 10:44 | PN ---
DATE: 12/26/2018 SUBJECTIVE: The patient was transferred from intensive care unit to telemetry. Overnight, the patie nt has been stable. Shortness of breath was improving. The patient had excellent urinary output. N o other acute events noted. No hemoptysis, hematemesis, hematochezia. OBJECTIVE: VITAL SIGNS: Blood pressure is 162/69, respirations 18, pulse 68, temperature 99.0. HEENT: Head is normocephalic. NECK: Supple. HEART: Regular rate. LUNGS: Show diminished breath sounds at the base. ABDOMEN: Soft, nontender to palpation without rebound or guarding. EXTREMITIES: Negative for clubbing, cyanosis, no edema. DERMATOLOGIC: No rashes. MUSCULOSKELETAL: No joint effusion. NEUROLOGIC: No focal deficits. MEDICATIONS: The patient's medications have been reviewed. LABORATORY DATA: Reviewed. Urinalysis was reviewed. The patient's protein creatinine ratio was rev iewed. IMAGING STUDIES: Reviewed. Urine cultures were reviewed. Renal ultrasound shows small left kidney and no evidence of hydronephrosis. ASSESSMENT AND PLAN: 1. Nonoliguric acute kidney injury on top of chronic kidney disease with unknown baseline creatinine . Etiology of KASSIDY is secondary to sepsis, hemodynamics. The patient's renal function has been stabl e in the last 24 hours. At this point, continue treatment plan and renally dose all meds. Continue IV antibiotics. 2. Anemia. Monitor hemoglobin and hematocrit levels. 3. Mineral bone disorder, monitor calcium and phosphorus levels. 4. Hypertension. Continue current blood pressure regimen. 5. Non-ST elevation myocardial infarction, possible type 2. Continue medical management. Follow se rial troponins. 6. Volume overload, possible heart failure. The patient is status post diuretic therapy. A 2D echo was reviewed, showed evidence of diastolic dysfunction. Continue medical management. Will give int ermittent diuretic therapy as needed. 7. Diabetes. Continue current insulin regimen. 8. Atrial fibrillation. Continue medical management. 9. Rheumatoid arthritis. Continue current treatment plan. 10. Sepsis secondary to pneumonia. Continue current antibiotic regimen. Follow up cultures. Dictated By: AVE SOFIA DO NR/NTS Conf#: [id number] DID#: [id number] CC: DONG MARLEY MD; LESLIE PERES MD; WILLIE GLEASON MD;*[facility]*
--- NOTE | 2018-12-26 16:47 | PN ---
Date/Time of Note Date/Time of Note DATE: 12/26/18 TIME: 16:45 Assessment/Plan VTE Prophylaxis Risk score (from Nsg)>0 risk: 5 SCD applied (from Nsg): Yes Pharmacological prophylaxis: apixaban Lines/Catheters IV Catheter Type (from Nrsg): Saline Lock Urinary Cath still in place: Yes Reason Cath still needed: terminal illness/intractable pain Assessment/Plan Assessment/Plan 1. NSTEMI- stable - most likely demand type 2 - Trops downward trending and no chest pain - Cardiology consultation appreciated and patient refusing stress test at this time given intolerance to adenosine 2. Acute on chronic heart failure- improving - ECHO results noted with preserved EF - BNP elevated 3. Diabetes Mellitus- resolved - A1c noted and no need for standing insulin at this time - ISS and accuchecks 4. Hypertensive urgency - resolved 5. History of A-fib - rate controlled - continue Eliquis 6. Rheumatoid arthritis - continue home medications 7. KASSIDY - Nephrology consultation appreciated - may be cardiorenal vs ATN from sepsis - avoid nephrotoxic agents 8. Constipation - resolved - feeling significantly better following BM 9. Disposition - PT consulted for discharge planning Result Diagram: 12/26/18 0551 12/26/18 0551 Results 24hrs Laboratory Tests Test 12/25/18 21:29 12/26/18 05:51 12/26/18 07:46 12/26/18 12:25 Bedside Glucose 108 103 136 White Blood Count 5.3 # Red Blood Count 2.93 L Hemoglobin 9.0 L Hematocrit 30.0 L Mean Corpuscular 102.4 H Volume Mean Corpuscular 30.7 Hemoglobin Mean Corpuscular 30.0 L Hemoglobin Concent Red Cell 14.2 Distribution Width Platelet Count 140 Mean Platelet Volume 10.2 Immature 0.200 Granulocytes % Neutrophils % 69.3 Lymphocytes % 15.5 Monocytes % 11.9 H Eosinophils % 2.5 Basophils % 0.6 Nucleated Red Blood 0.0 Cells % Immature 0.010 Granulocytes # Neutrophils # 3.7 Lymphocytes # 0.8 Monocytes # 0.6 Eosinophils # 0.1 Basophils # 0.0 Nucleated Red Blood 0.0 Cells # Sodium Level 140 Potassium Level 3.8 Chloride Level 106 Carbon Dioxide Level 32 H Anion Gap 2 L Blood Urea Nitrogen 28 H Creatinine 1.47 H Est Glomerular 36 L Filtrat Rate mL/min Glucose Level 102 Calcium Level 8.6 Phosphorus Level 3.3 Magnesium Level 2.3 Total Bilirubin 0.7 Direct Bilirubin 0.00 Indirect Bilirubin 0.7 Aspartate Amino 38 Transf (AST/SGOT) Alanine 48 Aminotransferase (AL T/SGPT) Alkaline Phosphatase 174 H Total Protein 5.5 L Albumin 2.9 L Globulin 2.60 Albumin/Globulin 1.11 Ratio Test 12/26/18 12:45 Creatine Kinase 62 Creatine Kinase 2.5 Index Creatinine Kinase MB 1.54 (Mass) Troponin I 0.536 *H Subjective 24 Hr Interval Summary Free Text/Dictation Patient states shes feeling better and tolerating PO intake but still doesn't have a great appetite. Requesting rehab placement as well. Exam/Review of Systems Exam Vitals Vital Signs Date Temp Pulse Resp B/P (MAP) Pulse Ox O2 O2 Flow FiO2 Time Delivery Rate 12/26/18 98.2 62 18 143/70 99 Nasal 15:02 (94) Cannula 12/25/18 2.0 21:30 12/24/18 30 01:49 Intake and Output 12/25/18 12/25/18 12/26/18 1515:00 23:00 07:00 IntakeIntake Total 530 ml 230 ml 350 ml OutputOutput Total 470 ml 90 ml 450 ml BalanceBalance 60 ml 140 ml -100 ml Exam General: Patient is pleasant, currently lying in bed, no acute distress Neck: Supple Chest: Nontender Lungs: Clear to auscultation bilaterally, no wheezing or rhonchi Heart: Normal S1-S2, Regular rhythm and rate. No murmur, S3, or S4 Abdomen: Soft , nontender, nondistended , bowel sounds are present. No guarding no rebound tenderness Extremities: Normal to inspection, no edema no cyanosis Results Results 24hrs Laboratory Tests Test 12/25/18 21:29 12/26/18 05:51 12/26/18 07:46 12/26/18 12:25 Bedside Glucose 108 103 136 White Blood Count 5.3 # Red Blood Count 2.93 L Hemoglobin 9.0 L Hematocrit 30.0 L Mean Corpuscular 102.4 H Volume Mean Corpuscular 30.7 Hemoglobin Mean Corpuscular 30.0 L Hemoglobin Concent Red Cell 14.2 Distribution Width Platelet Count 140 Mean Platelet Volume 10.2 Immature 0.200 Granulocytes % Neutrophils % 69.3 Lymphocytes % 15.5 Monocytes % 11.9 H Eosinophils % 2.5 Basophils % 0.6 Nucleated Red Blood 0.0 Cells % Immature 0.010 Granulocytes # Neutrophils # 3.7 Lymphocytes # 0.8 Monocytes # 0.6 Eosinophils # 0.1 Basophils # 0.0 Nucleated Red Blood 0.0 Cells # Sodium Level 140 Potassium Level 3.8 Chloride Level 106 Carbon Dioxide Level 32 H Anion Gap 2 L Blood Urea Nitrogen 28 H Creatinine 1.47 H Est Glomerular 36 L Filtrat Rate mL/min Glucose Level 102 Calcium Level 8.6 Phosphorus Level 3.3 Magnesium Level 2.3 Total Bilirubin 0.7 Direct Bilirubin 0.00 Indirect Bilirubin 0.7 Aspartate Amino 38 Transf (AST/SGOT) Alanine 48 Aminotransferase (AL T/SGPT) Alkaline Phosphatase 174 H Total Protein 5.5 L Albumin 2.9 L Globulin 2.60 Albumin/Globulin 1.11 Ratio Test 12/26/18 12:45 Creatine Kinase 62 Creatine Kinase 2.5 Index Creatinine Kinase MB 1.54 (Mass) Troponin I 0.536 *H Medications Medication Current Medications Ondansetron HCl (Zofran Inj) 4 mg Q6H PRN IV NAUSEA AND/OR VOMITING Last administered on 12/26/18at 12:36; Admin Dose 4 MG; Start 12/23/18 at 20:30 Albuterol/ Ipratropium (Duoneb) 3 ml Q2H RESP THERAPY PRN NEB SHORTNESS OF BREATH; Start 12/23/18 at 20:30 Nitroglycerin (Nitroglycerin (Sl Tab) 0.4 Mg) 1 tab Q5M PRN SL CHEST PAIN; Start 12/23/18 at 20:30 Acetaminophen (Tylenol Liquid) 650 mg Q6H PRN PO PAIN LEVEL 1-3 OR FEVER Last administered on 12/24/18at 06:07; Admin Dose 650 MG; Start 12/23/18 at 20:30 Pantoprazole (Protonix Tab) 40 mg DAILY@06 PO Last administered on 12/26/18at 06:41; Admin Dose 40 MG; Start 12/24/18 at 06:00 Vancomycin HCl (Vanco Iv Per Pharmacy) VANCOMYCIN PER PHARMACY PER PROTOCOL XX ; Start 12/23/18 at 20:30 Apixaban (Eliquis) 5 mg BID PO Last administered on 12/26/18at 08:41; Admin Dose 5 MG; Start 12/24/18 at 21:00 Amiodarone HCl (Cordarone) 100 mg DAILY PO Last administered on 12/26/18 08:41; Admin Dose 100 MG; Start 12/24/18 at 09:30 Metoprolol Succinate (Toprol Xl) 50 mg DAILY PO Last administered on 12/26/18 08:41; Admin Dose 50 MG; Start 12/24/18 at 09:30 Prednisone (Prednisone) 3 mg DAILY PO Last administered on 12/26/18 08:40; Admin Dose 3 MG; Start 12/24/18 at 10:00 Aspirin (Aspirin) 81 mg DAILY PO Last administered on 12/26/18 08:41; Admin Dose 81 MG; Start 12/24/18 at 09:30 Tramadol HCl (Ultram) 100 mg Q12 PO Last administered on 12/26/18 09:20; Admin Dose 100 MG; Start 12/24/18 at 10:00 Gabapentin (Neurontin) 100 mg BID PO Last administered on 12/26/18 08:40; Admin Dose 100 MG; Start 12/24/18 at 10:00 Insulin Aspart (Novolog Insulin Pen) NOVOLOG *MILD* ALGORITHM WITH MEALS BEDTIME SC ; Start 12/24/18 at 11:30 Vancomycin HCl 250 ml @ 125 mls/hr Q24H IVPB Last administered on 12/25/18at 21:32; Admin Dose 125 MLS/HR; Start 12/24/18 at 21:00 Patient Own Medication 1 ea DAILY PO Last administered on 12/26/18 08:40; Admin Dose 1 EA; Start 12/24/18 at 14:00 Miscellaneous Information 1 ea NOTE XX ; Start 12/24/18 at 10:30 Glucose (Glutose) 15 gm Q15M PRN PO DECREASED GLUCOSE; Start 12/24/18 at 10:30 Glucose (Glutose) 22.5 gm Q15M PRN PO DECREASED GLUCOSE; Start 12/24/18 at 10:30 Dextrose (D50w Syringe) 25 ml Q15M PRN IV DECREASED GLUCOSE; Start 12/24/18 at 10:30 Dextrose (D50w Syringe) 50 ml Q15M PRN IV DECREASED GLUCOSE; Start 12/24/18 at 10:30 Glucagon (Glucagen) 1 mg Q15M PRN IM DECREASED GLUCOSE; Start 12/24/18 at 10:30 Glucose (Glutose) 15 gm Q15M PRN BUCCAL DECREASED GLUCOSE; Start 12/24/18 at 10:30 Polyethylene Glycol (Miralax) 17 gm DAILY PO Last administered on 12/26/18at 08:40; Admin Dose 17 GM; Start 12/24/18 at 16:30 Docusate Sodium (Colace) 100 mg BID PO Last administered on 12/26/18at 08:41; Admin Dose 100 MG; Start 12/24/18 at 21:00 Dextrose/Sodium Chloride 1,000 ml @ 20 mls/hr Q24H IV Last administered on 12/25/18at 10:19; Admin Dose 20 MLS/HR; Start 12/25/18 at 10:30 Bisacodyl (Dulcolax Supp) 10 mg DAILY PRN [place] CONSTIPATION; Start 12/25/18 at 16:00 Leflunomide (Arava) 10 mg DAILY PO Last administered on 12/26/18at 09:47; Admin Dose 10 MG; Start 12/26/18 at 09:00 Miscellaneous Information (*Rx Drug Level Order Reminder*) FITZ MARSH AT 1999 ONCE ONCE XX ; Start 12/26/18 at 20:00; Stop 12/26/18 at 20:01 LESLIE PERES MD December 26, 2018 16:47
[2018-12-26] MEDS: VANCOMYCIN 1 GM 250 ML IVPB SCH (21:28)
[2018-12-26] MEDS: hydrALAzine 20 MG INJ IV PRN (22:17)
[2018-12-27] VITALS (10 sets, daily range): BP systolic 120–180; BP diastolic 60–84; PULSE 53–65; RESP 18–20
[2018-12-27] MEDS: INSULIN ASPART [NOVOLOG] 3 ML PEN SC SCH ×4 (00:25→17:32)
[2018-12-27] MEDS: PANTOPRAZOLE (EC) 40 MG TAB PO SCH (06:14)
--- NOTE | 2018-12-27 08:09 | CONS ---
Consult Date/Type/Reason Admit Date/Time December 23, 2018 at 20:05 Initial Consult Date 12/24/18 Type of Consultation: cv Requesting Provider: LESLIE PERES MD Date/Time of Note DATE: 12/27/18 TIME: 08:07 Subjective Interventional cardiology follow-up progress note Subjective: Discussed with the staff and telemetry was reviewed patient remains sinus rhythm. She has had episodes of 2-1 AV block during the time she was having nausea vomiting . No syncope presyncope is reported no chest pain or pressure no palpitation. Objective: General: Obese female in no acute distress HEENT: NC/AT. pupils are equal. round. NECK: NO JVD. no stridor. CV: RRR. systolic murmur; no gallop or rubs. PULM: no wheezing or rhonchi. GI: SOFT, NT, ND, no rebound or guarding Extremity: trace B/L LE edema. no clubbing. neuro: awake and alert, OX3. Psych: calm and pleasant rectal: deferred Echocardiogram has shown: Normal left ventricular systolic function. Normal left ventricular cavity size. Moderate concentric left ventricular hypertrophy. Ejection fraction is visually estimated at 60 %. Tissue Doppler/Mitral Doppler indices are consistent with impaired relaxation (Stage I diastolic dysfunction). Mitral valve leaflets appear mildly thickened. Mild mitral annular calcification. Trace mitral regurgitation. No hemodynamically significant aortic stenosis by doppler. Aortic cusps appear mildly calcified. Mild aortic valve regurgitation. Normal appearance of the tricuspid valve. Unable to obtain RVSP due to minimal presence of tricuspid regurgitation. Objective Vitals Vital Signs Date Temp Pulse Resp B/P (MAP) Pulse Ox O2 O2 Flow FiO2 Time Delivery Rate 12/27/18 98.2 63 18 120/60 96 Room Air 07:40 (80) 12/27/18 1.0 04:58 12/26/18 21 21:16 Intake and Output 12/26/18 12/26/18 12/27/18 1515:00 23:00 07:00 IntakeIntake Total 850 ml 250 ml OutputOutput Total 600 ml 800 ml BalanceBalance 250 ml -550 ml Results/Medications Result Diagram: 12/27/18 0613 12/27/18 0613 Results 24 hrs Laboratory Tests Test 12/26/18 12:25 12/26/18 12:45 12/26/18 17:43 12/26/18 20:00 Bedside Glucose 136 129 88 Creatine Kinase 62 Creatine Kinase 2.5 Index Creatinine Kinase MB 1.54 (Mass) Troponin I 0.536 *H Test 12/26/18 20:05 12/27/18 06:13 Vancomycin Level 12.1 Trough White Blood Count 5.3 Red Blood Count 3.12 L Hemoglobin 9.6 L Hematocrit 31.9 L Mean Corpuscular 102.2 H Volume Mean Corpuscular 30.8 Hemoglobin Mean Corpuscular 30.1 L Hemoglobin Concent Red Cell 14.0 Distribution Width Platelet Count 159 Mean Platelet Volume 10.3 Immature 0.200 Granulocytes % Neutrophils % 47.9 Lymphocytes % 35.3 Monocytes % 13.0 H Eosinophils % 3.0 Basophils % 0.6 Nucleated Red Blood 0.0 Cells % Immature 0.010 Granulocytes # Neutrophils # 2.6 Lymphocytes # 1.9 Monocytes # 0.7 Eosinophils # 0.2 Basophils # 0.0 Nucleated Red Blood 0.0 Cells # Sodium Level 141 Potassium Level 3.9 Chloride Level 106 Carbon Dioxide Level 32 H Anion Gap 3 L Blood Urea Nitrogen 21 H Creatinine 1.10 H Est Glomerular 50 L Filtrat Rate mL/min Glucose Level 94 Calcium Level 8.7 Magnesium Level 2.0 Total Bilirubin 0.5 Direct Bilirubin 0.00 Indirect Bilirubin 0.5 Aspartate Amino 35 Transf (AST/SGOT) Alanine 40 Aminotransferase (AL T/SGPT) Alkaline Phosphatase 200 H Total Protein 6.1 Albumin 3.1 L Globulin 3.00 Albumin/Globulin 1.03 Ratio Home Meds Reported Medications Clonidine Hcl* (Clonidine Hcl*) 0.1 Mg Tab, 0.1 MG PO PRN PRN for ELEVATED BLOOD PRESSURE, TAB IF SBP GREATER THAN 160 12/24/18 Dulaglutide (Trulicity) 1.5 Mg/0.5 Ml Pen.injctr, 1.5 MG SQ EVERY Monday12/24/18 Insulin Glargine,Hum.rec.anlog (Basaglar Kwikpen U-100) 100 Unit/1 Ml Insuln.pen, 13 UNIT SC QASIMA Armstrong 12/24/18 Insulin Aspart* (Novolog Insulin Pen*) 100 Unit/Ml Soln, 7 UNIT SC AC ASIMA 12/24/18 Insulin Aspart* (Novolog Insulin Pen*) 100 Unit/Ml Soln, 0 SC .SLIDING SCALE AC EA 12/24/18 Latanoprost (Xalatan) 2.5 Ml Drops, 1 DROP BOTH EYES QHS, #1 BOTTLE 12/24/18 Tofacitinib Citrate (Xeljanz Xr) 11 Mg Tab.er.24h, 11 MG PO DAILY 12/24/18 Atorvastatin Calcium* (Atorvastatin Calcium*) 20 Mg Tablet, 20 MG PO QHS, #30 TAB 12/24/18 Oxybutynin Chloride* (Ditropan* XL) 5 Mg Tabsr, 5 MG PO QHS, TAB.SA 12/24/18 Metoprolol Succinate* (Toprol XL*) 50 Mg Tab.er.24h, 50 MG PO BID, #30 TAB 12/24/18 Leflunomide* (Arava*) 10 Mg Tablet, 10 MG PO DAILY, TAB 12/24/18 Apixaban* (Eliquis*) 2.5 Mg Tablet, 2.5 MG PO BID, TAB 12/24/18 Amiodarone Hcl* (Amiodarone Hcl*) 100 Mg Tablet, 100 MG PO BID, #30 TAB 12/24/18 Gabapentin* (Gabapentin*) 100 Mg Capsule, 100 MG PO TID, #90 CAP 12/24/18 Ergocalciferol (Vitamin D2) (VITAMIN D2) 2,000 Unit Tablet, 2000 UNIT PO DAILY, TAB 12/24/18 Tramadol Hcl* (Ultram*) 50 Mg Tablet, 100 MG PO Q12 PRN for PAIN, TAB 12/24/18 Prednisone* (Prednisone*) 1 Mg Tablet, 3 MG PO DAILY, TAB 12/24/18 Medications Current Medications Ondansetron HCl (Zofran Inj) 4 mg Q6H PRN IV NAUSEA AND/OR VOMITING Last administered on 12/26/18at 12:36; Admin Dose 4 MG; Start 12/23/18 at 20:30 Albuterol/ Ipratropium (Duoneb) 3 ml Q2H RESP THERAPY PRN NEB SHORTNESS OF BREATH; Start 12/23/18 at 20:30 Nitroglycerin (Nitroglycerin (Sl Tab) 0.4 Mg) 1 tab Q5M PRN SL CHEST PAIN; Start 12/23/18 at 20:30 Acetaminophen (Tylenol Liquid) 650 mg Q6H PRN PO PAIN LEVEL 1-3 OR FEVER Last administered on 12/24/18at 06:07; Admin Dose 650 MG; Start 12/23/18 at 20:30 Pantoprazole (Protonix Tab) 40 mg DAILY@06 PO Last administered on 12/27/18 06:14; Admin Dose 40 MG; Start 12/24/18 at 06:00 Vancomycin HCl (Vanco Iv Per Pharmacy) VANCOMYCIN PER PHARMACY PER PROTOCOL XX ; Start 12/23/18 at 20:30 Apixaban (Eliquis) 5 mg BID PO Last administered on 12/26/18 20:17; Admin Dose 5 MG; Start 12/24/18 at 21:00 Amiodarone HCl (Cordarone) 100 mg DAILY PO Last administered on 12/26/18 08:41; Admin Dose 100 MG; Start 12/24/18 at 09:30 Metoprolol Succinate (Toprol Xl) 50 mg DAILY PO Last administered on 12/26/18 08:41; Admin Dose 50 MG; Start 12/24/18 at 09:30 Prednisone (Prednisone) 3 mg DAILY PO Last administered on 12/26/18 08:40; Admin Dose 3 MG; Start 12/24/18 at 10:00 Aspirin (Aspirin) 81 mg DAILY PO Last administered on 12/26/18 08:41; Admin Dose 81 MG; Start 12/24/18 at 09:30 Tramadol HCl (Ultram) 100 mg Q12 PO Last administered on 12/26/18 20:18; Admin Dose 100 MG; Start 12/24/18 at 10:00 Gabapentin (Neurontin) 100 mg BID PO Last administered on 12/26/18 20:17; Admin Dose 100 MG; Start 12/24/18 at 10:00 Insulin Aspart (Novolog Insulin Pen) NOVOLOG *MILD* ALGORITHM WITH MEALS BEDTIME SC ; Start 12/24/18 at 11:30 Vancomycin HCl 250 ml @ 125 mls/hr Q24H IVPB Last administered on 12/26/18 21:28; Admin Dose 125 MLS/HR; Start 12/24/18 at 21:00 Patient Own Medication 1 ea DAILY PO Last administered on 12/26/18 08:40; Admin Dose 1 EA; Start 12/24/18 at 14:00 Miscellaneous Information 1 ea NOTE XX ; Start 12/24/18 at 10:30 Glucose (Glutose) 15 gm Q15M PRN PO DECREASED GLUCOSE; Start 12/24/18 at 10:30 Glucose (Glutose) 22.5 gm Q15M PRN PO DECREASED GLUCOSE; Start 12/24/18 at 10:30 Dextrose (D50w Syringe) 25 ml Q15M PRN IV DECREASED GLUCOSE; Start 12/24/18 at 10:30 Dextrose (D50w Syringe) 50 ml Q15M PRN IV DECREASED GLUCOSE; Start 12/24/18 at 10:30 Glucagon (Glucagen) 1 mg Q15M PRN IM DECREASED GLUCOSE; Start 12/24/18 at 10:30 Glucose (Glutose) 15 gm Q15M PRN BUCCAL DECREASED GLUCOSE; Start 12/24/18 at 10:30 Polyethylene Glycol (Miralax) 17 gm DAILY PO Last administered on 12/26/18at 08:40; Admin Dose 17 GM; Start 12/24/18 at 16:30 Docusate Sodium (Colace) 100 mg BID PO Last administered on 12/26/18at 20:17; Admin Dose 100 MG; Start 12/24/18 at 21:00 Dextrose/Sodium Chloride 1,000 ml @ 20 mls/hr Q24H IV Last administered on 12/25/18at 10:19; Admin Dose 20 MLS/HR; Start 12/25/18 at 10:30 Bisacodyl (Dulcolax Supp) 10 mg DAILY PRN [place] CONSTIPATION; Start 12/25/18 at 16:00 Leflunomide (Arava) 10 mg DAILY PO Last administered on 12/26/18at 09:47; Admin Dose 10 MG; Start 12/26/18 at 09:00 Hydralazine HCl (Apresoline) 10 mg Q4H PRN IV ELEVATED SYSTOLIC BP Last administered on 12/26/18at 22:17; Admin Dose 10 MG; Start 12/26/18 at 22:00 Assessment/Plan Hospital Course (Demo Recall) 1. Abnormal troponin consistent with non-ST elevation myocardial infarction: Probably type II. Given her risk factors including diabetes coronary artery disease cannot be ruled out 2. Sepsis 3. Acute renal failure on chronic kidney disease: improved now 4. History of diabetes 5. Morbid obesity 6. Hypertension 7. History of proximal atrial fibrillation on Eliquis Recommendations: We will continue with the optimal medical therapy only at this point given her request Aspirin will be continued. Anticoagulation for now will be continued. Antibiotic management as per internal medicine thank you for this referral. We will continue to follow along with you EITAN EDMONDSON MD [facility] EITAN EDMONDSON MD December 27, 2018 08:09
[2018-12-27] MEDS: POLYETHYLENE GLYCOL 17 GM PACKET PO SCH (09:00)
[2018-12-27] MEDS: XELJANZ 11 MG PO SCH (09:29)
[2018-12-27] MEDS: LEFLUNOMIDE 20 MG TAB PO SCH (09:30)
[2018-12-27] MEDS: ASPIRIN 81 MG TAB PO SCH (09:30)
[2018-12-27] MEDS: DOCUSATE SODIUM 100 MG CAP PO SCH ×2 (09:30→21:07)
[2018-12-27] MEDS: APIXABAN 5 MG TABLET PO SCH ×2 (09:30→21:07)
[2018-12-27] MEDS: GABAPENTIN 100 MG CAP PO SCH ×2 (09:31→21:06)
[2018-12-27] MEDS: predniSONE 1 MG TAB PO SCH (09:31)
[2018-12-27] MEDS: traMADol 50 MG TAB PO SCH ×2 (09:31→21:07)
[2018-12-27] MEDS: METOPROLOL (XL) 50 MG TAB PO SCH (09:32)
[2018-12-27] MEDS: AMIODARONE 200 MG TAB PO SCH (09:32)
[2018-12-27] MEDS: ONDANSETRON 4 MG INJ IV PRN (09:39)
[2018-12-27] MEDS ORDERED: FUROSEMIDE 20 MG INJ IV ONE (10:30)
--- NOTE | 2018-12-27 11:39 | PN ---
DATE: 12/27/2018 SUBJECTIVE: The patient is stable. No events overnight. OBJECTIVE: VITAL SIGNS: Blood pressure is 120/60, respirations 16, pulse 63, temperature 98.2. HEENT: Head is normocephalic. NECK: Supple. HEART: Regular rate. LUNGS: Show diminished breath sounds at the base. ABDOMEN: Soft, nontender to palpation without rebound or guarding. EXTREMITIES: Negative for clubbing, cyanosis, no edema. DERMATOLOGIC: No rashes. MUSCULOSKELETAL: No joint effusion. NEUROLOGIC: No change in exam. MEDICATIONS: Reviewed. LABORATORY DATA: Reviewed. ASSESSMENT AND PLAN: 1. Nonoliguric acute kidney injury on top of chronic kidney disease with unknown baseline creatinine . Etiology of acute kidney injury is secondary to sepsis and hemodynamics. The patient's renal func tion is improving. Continue current treatment plan, supportive care and renally dose all medications . 2. Anemia. Continue to monitor hemoglobin and hematocrit levels. 3. Mineral bone disorder. Monitor calcium and phosphorus levels. 4. Hypertension. Continue current blood pressure regimen. 5. Non-ST elevation myocardial infarction type 2. Continue to monitor. Follow up with Cardiology. 6. Acute diastolic heart failure. The patient's 2D echo was reviewed. The patient is clinically im proving. Continue current medical management. We will give intermittent diuretic therapy as needed. Follow up with cardiology for further recommendations. 7. Diabetes. Continue current insulin regimen. 8. Atrial fibrillation. Continue current treatment plan. 9. Sepsis secondary to pneumonia. Continue current antibiotic regimen. 10. History of rheumatoid arthritis. Continue current medical management. Dictated By: AVE SOFIA DO NR/NTS Conf#: [id number] DID#: [id number] CC: WILLIE GLEASON MD; DONG MARLEY MD; LESLIE PERES MD;*EndCC*
--- NOTE | 2018-12-27 15:52 | CONS ---
DATE OF ADMISSION: 12/23/2018 DATE OF CONSULTATION: 12/27/2018 TYPE OF CONSULTATION: Infectious disease. REASON FOR CONSULTATION: Antibiotic management. HISTORY OF PRESENT ILLNESS: Jaclyn Murry is a 63-year-old female who was brought in from home with a 2-week history of fever, lethargy, cough and congestion. The fever and vomiting began on the day of admission and she has had a cough and congestion for 2 to 3 days prior to admission. She was feeling weak and multiple episodes of vomiting and no complaints of chest pain. She was dyspnei c and febrile on admission. PAST MEDICAL HISTORY: She has history of congestive heart failure, atrial fibrillation, using 8 apix aban. She has a history of renal insufficiency. She just recently discontinued hydrochlorothiazide. She has obesity, diabetes mellitus and hypertension. ALLERGIES: SHE IS ALLERGIC TO: 1. CIPRO. 2. HYDROMORPHONE. 3. HYDROXYCHLOROQUINE. FAMILY HISTORY: Noncontributory. SOCIAL HISTORY: She does not smoke, drink or abuse drugs. HOSPITAL COURSE: On admission, her temperature was 103. On the 12/23/2018, white count was 11.1, H and H of 11.4 and 37.2, platelet count 196. BUN and creatinine 20/1.09, glucose random 171. She had 78% neutrophils. The patient was started on ceftriaxone. She was seen to have bilateral pulmonary edema, possible left lower lobe infiltrate, no pneumothorax. The patient was seen by Dr. Longo for acute kidney injury. The patient with a history of hypertension, atrial fibrillation, history of rh eumatoid arthritis, renal insufficiency, presented with generalized weakness. She was febrile, eleva radha lactic acid. Chest x-ray showed bilateral hazy opacities, possible pneumonia. She had pulmonary vascular congestion, cardiomegaly. She was transferred to the intensive care unit and given antibio tics and diuretic therapy. She has chronic renal insufficiency and previous history of sepsis. PHYSICAL EXAMINATION: GENERAL: She is a well-developed, well-nourished female in no acute distress. VITAL SIGNS: Now stable. SKIN: Without generalized rash. HEENT: Within normal limits. NECK: Supple. LYMPH NODES: None palpable. CHEST: Decreased breath sounds at the bases. HEART: Tachycardic without murmur or gallop. ABDOMEN: Soft, nontender without organosplenomegaly or masses. EXTREMITIES: Without cyanosis, clubbing or edema. RECTAL AND GENITAL: Deferred. NEUROLOGIC: No focal neurological abnormalities. IMPRESSION AND PLAN: She has sepsis secondary to pneumonia. Blood culture showed methicillin-resist ant Staphylococcus aureus. Urine culture showed Viki albicans. Renal ultrasound: Small left kid kevin. No evidence of hydronephrosis. Gallbladder ultrasound: Status post cholecystectomy, dilated c ommon bile duct. The patient had a positive blood culture on 12/23/2018 and also urine culture for C andida albicans. Repeat blood cultures showed no growth. She is on vancomycin. Her white count tod ay is 5.3. She is currently afebrile. Blood culture was positive 1 out of 2 on 12/23/2018 and negat monroe on 12/26/2018. Nevertheless, I think that an methicillin-resistant Staphylococcus aureus in blo od culture is probably legitimate and I would continue her on vancomycin for the time being. I will dictate my findings to the hospitalist, to Dr. Longo, to Dr. Brunson. The patient had a non-ST elev ation myocardial infarction, stable. We will continue her on current therapy. Dictated By: SINTIA HERNANDEZ MD, JD/NTS Conf#: [id number] DID#: [id number] CC: LESLIE BRUNSON MD; DONG MARLEY MD; WILLIE GLEASON MD;*End*
--- NOTE | 2018-12-27 16:48 | PN ---
Date/Time of Note Date/Time of Note DATE: 12/27/18 TIME: 16:45 Assessment/Plan VTE Prophylaxis Risk score (from Nsg)>0 risk: 2 SCD applied (from Nsg): Yes Pharmacological prophylaxis: apixaban Lines/Catheters IV Catheter Type (from Nrsg): Peripheral IV Urinary Cath still in place: Yes Reason Cath still needed: terminal illness/intractable pain Assessment/Plan Assessment/Plan 1. NSTEMI- stable - most likely demand type 2 - Trops downward trending and no chest pain - Cardiology consultation appreciated and patient refusing stress test at this time given intolerance to adenosine 2. Acute on chronic heart failure- improving - ECHO results noted with preserved EF - BNP elevated 3. Diabetes Mellitus- resolved - A1c noted and no need for standing insulin at this time - ISS and accuchecks 4. Hypertensive urgency - resolved 5. History of A-fib - rate controlled - continue Eliquis 6. Rheumatoid arthritis - continue home medications 7. KASSIDY- improving - Nephrology consultation appreciated - may be cardiorenal vs ATN from sepsis - avoid nephrotoxic agents 8. Constipation - resolved 9. MRSA bacteremia - ID consulted and appreciate recommendations - continue Vancomycin at this time and repeat blood cultures ordered 10. Disposition - Will need to await recommendations for ID and once cleared, will d/c to Rehab Result Diagram: 12/27/18 0613 12/27/18 0613 Results 24hrs Laboratory Tests Test 12/26/18 17:43 12/26/18 20:00 12/26/18 20:05 12/27/18 06:13 Bedside Glucose 129 88 Vancomycin Level 12.1 Trough White Blood Count 5.3 Red Blood Count 3.12 L Hemoglobin 9.6 L Hematocrit 31.9 L Mean Corpuscular 102.2 H Volume Mean Corpuscular 30.8 Hemoglobin Mean Corpuscular 30.1 L Hemoglobin Concent Red Cell 14.0 Distribution Width Platelet Count 159 Mean Platelet Volume 10.3 Immature 0.200 Granulocytes % Neutrophils % 47.9 Lymphocytes % 35.3 Monocytes % 13.0 H Eosinophils % 3.0 Basophils % 0.6 Nucleated Red Blood 0.0 Cells % Immature 0.010 Granulocytes # Neutrophils # 2.6 Lymphocytes # 1.9 Monocytes # 0.7 Eosinophils # 0.2 Basophils # 0.0 Nucleated Red Blood 0.0 Cells # Sodium Level 141 Potassium Level 3.9 Chloride Level 106 Carbon Dioxide Level 32 H Anion Gap 3 L Blood Urea Nitrogen 21 H Creatinine 1.10 H Est Glomerular 50 L Filtrat Rate mL/min Glucose Level 94 Calcium Level 8.7 Magnesium Level 2.0 Total Bilirubin 0.5 Direct Bilirubin 0.00 Indirect Bilirubin 0.5 Aspartate Amino 35 Transf (AST/SGOT) Alanine 40 Aminotransferase (AL T/SGPT) Alkaline Phosphatase 200 H Total Protein 6.1 Albumin 3.1 L Globulin 3.00 Albumin/Globulin 1.03 Ratio Test 12/27/18 08:16 12/27/18 12:07 Bedside Glucose 84 131 Subjective 24 Hr Interval Summary Free Text/Dictation Patient states shes still feeling nausea and afraid to move around with physical therapy. Believes it is medication induced. Exam/Review of Systems Exam Vitals Vital Signs Date Temp Pulse Resp B/P (MAP) Pulse Ox O2 O2 Flow FiO2 Time Delivery Rate 12/27/18 98.6 58 19 158/74 100 Room Air 15:22 (102) 12/27/18 1.0 14:31 12/26/18 21 21:16 Intake and Output 12/26/18 12/26/18 12/27/18 1515:00 23:00 07:00 IntakeIntake Total 850 ml 250 ml OutputOutput Total 600 ml 800 ml BalanceBalance 250 ml -550 ml Exam General: Patient is pleasant, currently lying in bed, mild distress due to fatigue and nausea Neck: Supple Chest: Nontender Lungs: Clear to auscultation bilaterally, no wheezing or rhonchi Heart: Normal S1-S2, Regular rhythm and rate. No murmur, S3, or S4 Abdomen: Soft , nontender, nondistended , bowel sounds are present. No guarding no rebound tenderness Extremities: Normal to inspection, no edema no cyanosis Results Results 24hrs Laboratory Tests Test 12/26/18 17:43 12/26/18 20:00 12/26/18 20:05 12/27/18 06:13 Bedside Glucose 129 88 Vancomycin Level 12.1 Trough White Blood Count 5.3 Red Blood Count 3.12 L Hemoglobin 9.6 L Hematocrit 31.9 L Mean Corpuscular 102.2 H Volume Mean Corpuscular 30.8 Hemoglobin Mean Corpuscular 30.1 L Hemoglobin Concent Red Cell 14.0 Distribution Width Platelet Count 159 Mean Platelet Volume 10.3 Immature 0.200 Granulocytes % Neutrophils % 47.9 Lymphocytes % 35.3 Monocytes % 13.0 H Eosinophils % 3.0 Basophils % 0.6 Nucleated Red Blood 0.0 Cells % Immature 0.010 Granulocytes # Neutrophils # 2.6 Lymphocytes # 1.9 Monocytes # 0.7 Eosinophils # 0.2 Basophils # 0.0 Nucleated Red Blood 0.0 Cells # Sodium Level 141 Potassium Level 3.9 Chloride Level 106 Carbon Dioxide Level 32 H Anion Gap 3 L Blood Urea Nitrogen 21 H Creatinine 1.10 H Est Glomerular 50 L Filtrat Rate mL/min Glucose Level 94 Calcium Level 8.7 Magnesium Level 2.0 Total Bilirubin 0.5 Direct Bilirubin 0.00 Indirect Bilirubin 0.5 Aspartate Amino 35 Transf (AST/SGOT) Alanine 40 Aminotransferase (AL T/SGPT) Alkaline Phosphatase 200 H Total Protein 6.1 Albumin 3.1 L Globulin 3.00 Albumin/Globulin 1.03 Ratio Test 12/27/18 08:16 12/27/18 12:07 Bedside Glucose 84 131 Medications Medication Current Medications Ondansetron HCl (Zofran Inj) 4 mg Q6H PRN IV NAUSEA AND/OR VOMITING Last administered on 12/27/18at 09:39; Admin Dose 4 MG; Start 12/23/18 at 20:30 Albuterol/ Ipratropium (Duoneb) 3 ml Q2H RESP THERAPY PRN NEB SHORTNESS OF BREATH; Start 12/23/18 at 20:30 Nitroglycerin (Nitroglycerin (Sl Tab) 0.4 Mg) 1 tab Q5M PRN SL CHEST PAIN; Start 12/23/18 at 20:30 Acetaminophen (Tylenol Liquid) 650 mg Q6H PRN PO PAIN LEVEL 1-3 OR FEVER Last administered on 12/24/18at 06:07; Admin Dose 650 MG; Start 12/23/18 at 20:30 Pantoprazole (Protonix Tab) 40 mg DAILY@06 PO Last administered on 12/27/18at 06:14; Admin Dose 40 MG; Start 12/24/18 at 06:00 Vancomycin HCl (Vanco Iv Per Pharmacy) VANCOMYCIN PER PHARMACY PER PROTOCOL XX ; Start 12/23/18 at 20:30 Apixaban (Eliquis) 5 mg BID PO Last administered on 12/27/18at 09:30; Admin Dose 5 MG; Start 12/24/18 at 21:00 Amiodarone HCl (Cordarone) 100 mg DAILY PO Last administered on 12/27/18 09:32; Admin Dose 100 MG; Start 12/24/18 at 09:30 Metoprolol Succinate (Toprol Xl) 50 mg DAILY PO Last administered on 12/27/18 09:32; Admin Dose 50 MG; Start 12/24/18 at 09:30 Prednisone (Prednisone) 3 mg DAILY PO Last administered on 12/27/18 09:31; Admin Dose 3 MG; Start 12/24/18 at 10:00 Aspirin (Aspirin) 81 mg DAILY PO Last administered on 12/27/18 09:30; Admin Dose 81 MG; Start 12/24/18 at 09:30 Tramadol HCl (Ultram) 100 mg Q12 PO Last administered on 12/27/18 09:31; Admin Dose 100 MG; Start 12/24/18 at 10:00 Gabapentin (Neurontin) 100 mg BID PO Last administered on 12/27/18 09:31; Admin Dose 100 MG; Start 12/24/18 at 10:00 Insulin Aspart (Novolog Insulin Pen) NOVOLOG *MILD* ALGORITHM WITH MEALS BEDTIME SC ; Start 12/24/18 at 11:30 Patient Own Medication 1 ea DAILY PO Last administered on 12/27/18 09:29; Admin Dose 1 EA; Start 12/24/18 at 14:00 Miscellaneous Information 1 ea NOTE XX ; Start 12/24/18 at 10:30 Glucose (Glutose) 15 gm Q15M PRN PO DECREASED GLUCOSE; Start 12/24/18 at 10:30 Glucose (Glutose) 22.5 gm Q15M PRN PO DECREASED GLUCOSE; Start 12/24/18 at 10:30 Dextrose (D50w Syringe) 25 ml Q15M PRN IV DECREASED GLUCOSE; Start 12/24/18 at 10:30 Dextrose (D50w Syringe) 50 ml Q15M PRN IV DECREASED GLUCOSE; Start 12/24/18 at 10:30 Glucagon (Glucagen) 1 mg Q15M PRN IM DECREASED GLUCOSE; Start 12/24/18 at 10:30 Glucose (Glutose) 15 gm Q15M PRN BUCCAL DECREASED GLUCOSE; Start 12/24/18 at 10:30 Polyethylene Glycol (Miralax) 17 gm DAILY PO Last administered on 12/26/18at 08:40; Admin Dose 17 GM; Start 12/24/18 at 16:30 Docusate Sodium (Colace) 100 mg BID PO Last administered on 12/27/18at 09:30; Admin Dose 100 MG; Start 12/24/18 at 21:00 Bisacodyl (Dulcolax Supp) 10 mg DAILY PRN [place] CONSTIPATION; Start 12/25/18 at 16:00 Leflunomide (Arava) 10 mg DAILY PO Last administered on 12/27/18at 09:30; Admin Dose 10 MG; Start 12/26/18 at 09:00 Hydralazine HCl (Apresoline) 10 mg Q4H PRN IV ELEVATED SYSTOLIC BP Last administered on 12/26/18at 22:17; Admin Dose 10 MG; Start 12/26/18 at 22:00 Vancomycin HCl 1.25 gm/Sodium Chloride 250 ml @ 83.333 mls/ hr Q24H IVPB ; Start 12/27/18 at 21:00 LESLIE PERES MD December 27, 2018 16:48
[2018-12-27] MEDS: VANCOMYCIN HCL 1.25 GM in SOD CHLORIDE 0.9% 250 ML IVPB SCH (21:08)
[2018-12-27] MEDS: hydrALAzine 20 MG INJ IV PRN (21:26)
[2018-12-28] VITALS (10 sets, daily range): BP systolic 114–150; BP diastolic 61–68; PULSE 53–89; RESP 18–20
[2018-12-28] MEDS: PANTOPRAZOLE (EC) 40 MG TAB PO SCH (06:10)
[2018-12-28] MEDS: ONDANSETRON 4 MG INJ IV PRN ×2 (06:10→12:11)
--- NOTE | 2018-12-28 07:53 | CONS ---
Consult Date/Type/Reason Admit Date/Time December 23, 2018 at 20:05 Initial Consult Date 12/24/18 Type of Consultation: cv Requesting Provider: LESLIE PERES MD Date/Time of Note DATE: 12/28/18 TIME: 07:51 Subjective Interventional cardiology follow-up progress note Subjective: Discussed with the staff and telemetry was reviewed patient remains sinus rhythm with rare blocked PACs. no chest pain or pressure no palpitation. She complains of dizziness and nausea vomiting when she moves her head Objective: General: Obese female in no acute distress HEENT: NC/AT. pupils are equal. round. NECK: NO JVD. no stridor. CV: RRR. systolic murmur; no gallop or rubs. PULM: no wheezing or rhonchi. GI: SOFT, NT, ND, no rebound or guarding Extremity: trace B/L LE edema. no clubbing. neuro: awake and alert, OX3. Psych: calm and pleasant rectal: deferred Echocardiogram has shown: Normal left ventricular systolic function. Normal left ventricular cavity size. Moderate concentric left ventricular hypertrophy. Ejection fraction is visually estimated at 60 %. Tissue Doppler/Mitral Doppler indices are consistent with impaired relaxation (Stage I diastolic dysfunction). Mitral valve leaflets appear mildly thickened. Mild mitral annular calcification. Trace mitral regurgitation. No hemodynamically significant aortic stenosis by doppler. Aortic cusps appear mildly calcified. Mild aortic valve regurgitation. Normal appearance of the tricuspid valve. Unable to obtain RVSP due to minimal presence of tricuspid regurgitation. Objective Vitals Vital Signs Date Temp Pulse Resp B/P (MAP) Pulse Ox O2 O2 Flow FiO2 Time Delivery Rate 12/28/18 1.0 04:30 12/28/18 64 04:00 12/28/18 98.0 18 150/68 94 03:57 (95) 12/27/18 Room Air 20:15 12/26/18 21 21:16 Intake and Output 12/27/18 12/27/18 12/28/18 1515:00 23:00 07:00 IntakeIntake Total 610 ml OutputOutput Total 1480 ml BalanceBalance -870 ml Results/Medications Result Diagram: 12/27/18 0613 12/28/18 0626 Results 24 hrs Laboratory Tests Test 12/27/18 08:16 12/27/18 12:07 12/27/18 17:32 12/28/18 00:16 Bedside Glucose 84 131 139 122 Test 12/28/18 06:26 Sodium Level 141 Potassium Level 3.7 Chloride Level 103 Carbon Dioxide Level 33 H Anion Gap 5 Blood Urea Nitrogen 22 H Creatinine 1.41 H Est Glomerular 38 L Filtrat Rate mL/min Glucose Level 114 Calcium Level 9.1 Phosphorus Level 3.9 Magnesium Level 1.9 Home Meds Reported Medications Clonidine Hcl* (Clonidine Hcl*) 0.1 Mg Tab, 0.1 MG PO PRN PRN for ELEVATED BLOOD PRESSURE, TAB IF SBP GREATER THAN 160 12/24/18 Dulaglutide (Trulicity) 1.5 Mg/0.5 Ml Pen.injctr, 1.5 MG SQ EVERY Monday12/24/18 Insulin Glargine,Hum.rec.anlog (Basaglar Kwikpen U-100) 100 Unit/1 Ml Insuln.pen, 13 UNIT SC QAM, EA 12/24/18 Insulin Aspart* (Novolog Insulin Pen*) 100 Unit/Ml Soln, 7 UNIT SC AC A, EA 12/24/18 Insulin Aspart* (Novolog Insulin Pen*) 100 Unit/Ml Soln, 0 SC .SLIDING SCALE AC, EA 12/24/18 Latanoprost (Xalatan) 2.5 Ml Drops, 1 DROP BOTH EYES QHS, #1 BOTTLE 12/24/18 Tofacitinib Citrate (Xeljanz Xr) 11 Mg Tab.er.24h, 11 MG PO DAILY 12/24/18 Atorvastatin Calcium* (Atorvastatin Calcium*) 20 Mg Tablet, 20 MG PO QHS, #30 TAB 12/24/18 Oxybutynin Chloride* (Ditropan* XL) 5 Mg Tabsr, 5 MG PO QHS, TAB.SA 12/24/18 Metoprolol Succinate* (Toprol XL*) 50 Mg Tab.er.24h, 50 MG PO BID, #30 TAB 12/24/18 Leflunomide* (Arava*) 10 Mg Tablet, 10 MG PO DAILY, TAB 12/24/18 Apixaban* (Eliquis*) 2.5 Mg Tablet, 2.5 MG PO BID, TAB 12/24/18 Amiodarone Hcl* (Amiodarone Hcl*) 100 Mg Tablet, 100 MG PO BID, #30 TAB 12/24/18 Gabapentin* (Gabapentin*) 100 Mg Capsule, 100 MG PO TID, #90 CAP 12/24/18 Ergocalciferol (Vitamin D2) (VITAMIN D2) 2,000 Unit Tablet, 2000 UNIT PO DAILY, TAB 12/24/18 Tramadol Hcl* (Ultram*) 50 Mg Tablet, 100 MG PO Q12 PRN for PAIN, TAB 12/24/18 Prednisone* (Prednisone*) 1 Mg Tablet, 3 MG PO DAILY, TAB 12/24/18 Medications Current Medications Ondansetron HCl (Zofran Inj) 4 mg Q6H PRN IV NAUSEA AND/OR VOMITING Last administered on 12/28/18at 06:10; Admin Dose 4 MG; Start 12/23/18 at 20:30 Albuterol/ Ipratropium (Duoneb) 3 ml Q2H RESP THERAPY PRN NEB SHORTNESS OF BREATH; Start 12/23/18 at 20:30 Nitroglycerin (Nitroglycerin (Sl Tab) 0.4 Mg) 1 tab Q5M PRN SL CHEST PAIN; Start 12/23/18 at 20:30 Acetaminophen (Tylenol Liquid) 650 mg Q6H PRN PO PAIN LEVEL 1-3 OR FEVER Last administered on 12/24/18at 06:07; Admin Dose 650 MG; Start 12/23/18 at 20:30 Pantoprazole (Protonix Tab) 40 mg DAILY@06 PO Last administered on 12/28/18at 06:10; Admin Dose 40 MG; Start 12/24/18 at 06:00 Vancomycin HCl (Vanco Iv Per Pharmacy) VANCOMYCIN PER PHARMACY PER PROTOCOL XX ; Start 12/23/18 at 20:30 Apixaban (Eliquis) 5 mg BID PO Last administered on 12/27/18at 21:07; Admin Dose 5 MG; Start 12/24/18 at 21:00 Amiodarone HCl (Cordarone) 100 mg DAILY PO Last administered on 12/27/18 09:32; Admin Dose 100 MG; Start 12/24/18 at 09:30 Metoprolol Succinate (Toprol Xl) 50 mg DAILY PO Last administered on 12/27/18 09:32; Admin Dose 50 MG; Start 12/24/18 at 09:30 Prednisone (Prednisone) 3 mg DAILY PO Last administered on 12/27/18at 09:31; Admin Dose 3 MG; Start 12/24/18 at 10:00 Aspirin (Aspirin) 81 mg DAILY PO Last administered on 12/27/18 09:30; Admin Dose 81 MG; Start 12/24/18 at 09:30 Tramadol HCl (Ultram) 100 mg Q12 PO Last administered on 12/27/18at 21:07; Admin Dose 100 MG; Start 12/24/18 at 10:00 Gabapentin (Neurontin) 100 mg BID PO Last administered on 12/27/18 21:06; Admin Dose 100 MG; Start 12/24/18 at 10:00 Insulin Aspart (Novolog Insulin Pen) NOVOLOG *MILD* ALGORITHM WITH MEALS BEDTIME SC ; Start 12/24/18 at 11:30 Patient Own Medication 1 ea DAILY PO Last administered on 12/27/18 09:29; Admin Dose 1 EA; Start 12/24/18 at 14:00 Miscellaneous Information 1 ea NOTE XX ; Start 12/24/18 at 10:30 Glucose (Glutose) 15 gm Q15M PRN PO DECREASED GLUCOSE; Start 12/24/18 at 10:30 Glucose (Glutose) 22.5 gm Q15M PRN PO DECREASED GLUCOSE; Start 12/24/18 at 10:30 Dextrose (D50w Syringe) 25 ml Q15M PRN IV DECREASED GLUCOSE; Start 12/24/18 at 10:30 Dextrose (D50w Syringe) 50 ml Q15M PRN IV DECREASED GLUCOSE; Start 12/24/18 at 10:30 Glucagon (Glucagen) 1 mg Q15M PRN IM DECREASED GLUCOSE; Start 12/24/18 at 10:30 Glucose (Glutose) 15 gm Q15M PRN BUCCAL DECREASED GLUCOSE; Start 12/24/18 at 10:30 Polyethylene Glycol (Miralax) 17 gm DAILY PO Last administered on 12/26/18at 08:40; Admin Dose 17 GM; Start 12/24/18 at 16:30 Docusate Sodium (Colace) 100 mg BID PO Last administered on 12/27/18at 21:07; Admin Dose 100 MG; Start 12/24/18 at 21:00 Bisacodyl (Dulcolax Supp) 10 mg DAILY PRN [place] CONSTIPATION; Start 12/25/18 at 16:00 Leflunomide (Arava) 10 mg DAILY PO Last administered on 12/27/18at 09:30; Admin Dose 10 MG; Start 12/26/18 at 09:00 Hydralazine HCl (Apresoline) 10 mg Q4H PRN IV ELEVATED SYSTOLIC BP Last administered on 12/27/18at 21:26; Admin Dose 10 MG; Start 12/26/18 at 22:00 Vancomycin HCl 1.25 gm/Sodium Chloride 250 ml @ 83.333 mls/ hr Q24H IVPB Last administered on 12/27/18at 21:08; Admin Dose 83.333 MLS/HR; Start 12/27/18 at 21:00 Assessment/Plan Hospital Course (Demo Recall) 1. Abnormal troponin consistent with non-ST elevation myocardial infarction: Probably type II. Given her risk factors including diabetes coronary artery disease cannot be ruled out 2. Sepsis 3. Acute renal failure on chronic kidney disease: improved now 4. History of diabetes 5. Morbid obesity 6. Hypertension 7. History of proximal atrial fibrillation on Eliquis 8. Questionable vertigo Recommendations: We will add meclizine as needed We will continue with the optimal medical therapy only at this point given her request Aspirin will be continued. Anticoagulation for now will be continued. Antibiotic management as per internal medicine Patient was advised to follow-up with me as an outpatient. Otherwise no further new cardiac condition. We will follow-up as needed over the weekend thank you for this referral. EITAN EDMONDSON MD MERGED WITH [facility] EITAN EDMONDSON MD December 28, 2018 07:53
[2018-12-28] MEDS: INSULIN ASPART [NOVOLOG] 3 ML PEN SC SCH ×4 (07:55→20:26)
[2018-12-28] MEDS ORDERED: MECLIZINE 12.5 MG TAB PO ONE (08:00)
[2018-12-28] MEDS: predniSONE 1 MG TAB PO SCH (08:13)
[2018-12-28] MEDS: DOCUSATE SODIUM 100 MG CAP PO SCH ×2 (08:13→20:06)
[2018-12-28] MEDS: LEFLUNOMIDE 20 MG TAB PO SCH (08:13)
[2018-12-28] MEDS: METOPROLOL (XL) 50 MG TAB PO SCH (08:14)
[2018-12-28] MEDS: GABAPENTIN 100 MG CAP PO SCH ×2 (08:14→20:06)
[2018-12-28] MEDS: APIXABAN 5 MG TABLET PO SCH ×2 (08:14→20:06)
[2018-12-28] MEDS: ASPIRIN 81 MG TAB PO SCH (08:15)
[2018-12-28] MEDS: POLYETHYLENE GLYCOL 17 GM PACKET PO SCH (08:15)
[2018-12-28] MEDS: AMIODARONE 200 MG TAB PO SCH (08:18)
[2018-12-28] MEDS: XELJANZ 11 MG PO SCH (08:19)
[2018-12-28] MEDS: traMADol 50 MG TAB PO SCH ×2 (08:25→20:06)
--- NOTE | 2018-12-28 10:00 | PN ---
Date/Time of Note Date/Time of Note DATE: 12/28/18 TIME: 09:56 Assessment/Plan VTE Prophylaxis Risk score (from Nsg)>0 risk: 5 SCD applied (from Nsg): Yes Pharmacological prophylaxis: apixaban Lines/Catheters IV Catheter Type (from Nrsg): Peripheral IV Urinary Cath still in place: Yes Reason Cath still needed: terminal illness/intractable pain Assessment/Plan Assessment/Plan 1. NSTEMI, most likely demand type 2 - remains asymptomatic - Cardiology consultation appreciated and will need to follow up as outpatient 2. Acute on chronic heart failure- stable - ECHO results noted with preserved EF - BNP elevated 3. Diabetes Mellitus- resolved - A1c noted - ISS and accuchecks 4. Hypertensive urgency - resolved 5. History of A-fib - rate controlled - continue Eliquis 6. Rheumatoid arthritis - continue home medications 7. KASSIDY - Nephrology consultation appreciated. slight increase in Cr may be from Vancomycin. Will touch base with ID regarding discharge planning in terms of antibiotic regime - may be cardiorenal vs ATN from sepsis - avoid nephrotoxic agents 8. Constipation - resolved 9. MRSA bacteremia - ID consulted and appreciate recommendations - repeat cx negative 10. Disposition - Will touch base with ID regarding antibx treatment and need for isolation. Once stable, will d/c to rehab Result Diagram: 12/27/18 0613 12/28/18 0626 Results 24hrs Laboratory Tests Test 12/27/18 12:07 12/27/18 17:32 12/28/18 00:16 12/28/18 06:26 Bedside Glucose 131 139 122 Sodium Level 141 Potassium Level 3.7 Chloride Level 103 Carbon Dioxide Level 33 H Anion Gap 5 Blood Urea Nitrogen 22 H Creatinine 1.41 H Est Glomerular 38 L Filtrat Rate mL/min Glucose Level 114 Calcium Level 9.1 Phosphorus Level 3.9 Magnesium Level 1.9 Test 12/28/18 08:00 Bedside Glucose 97 Subjective 24 Hr Interval Summary Free Text/Dictation Patient states shes still dizzy with abrupt movement. Admits to motion sickness and concerned about inner ear issues. Asking for outpatient referral to ENT. No acute overnight events. Exam/Review of Systems Exam Vitals Vital Signs Date Temp Pulse Resp B/P (MAP) Pulse Ox O2 O2 Flow FiO2 Time Delivery Rate 12/28/18 98.2 89 18 140/65 96 08:16 (90) 12/28/18 1.0 04:30 12/27/18 Room Air 20:15 12/26/18 21 21:16 Intake and Output 12/27/18 12/27/18 12/28/18 1515:00 23:00 07:00 IntakeIntake Total 610 ml OutputOutput Total 1480 ml BalanceBalance -870 ml Exam General: Patient is pleasant, currently lying in bed, no acute distress Neck: Supple Chest: Nontender Lungs: Clear to auscultation bilaterally, no wheezing or rhonchi Heart: Normal S1-S2, Regular rhythm and rate. No murmur, S3, or S4 Abdomen: Soft , nontender, nondistended , bowel sounds are present. No guarding no rebound tenderness Extremities: Normal to inspection, no edema no cyanosis Results Results 24hrs Laboratory Tests Test 12/27/18 12:07 12/27/18 17:32 12/28/18 00:16 12/28/18 06:26 Bedside Glucose 131 139 122 Sodium Level 141 Potassium Level 3.7 Chloride Level 103 Carbon Dioxide Level 33 H Anion Gap 5 Blood Urea Nitrogen 22 H Creatinine 1.41 H Est Glomerular 38 L Filtrat Rate mL/min Glucose Level 114 Calcium Level 9.1 Phosphorus Level 3.9 Magnesium Level 1.9 Test 12/28/18 08:00 Bedside Glucose 97 Medications Medication Current Medications Ondansetron HCl (Zofran Inj) 4 mg Q6H PRN IV NAUSEA AND/OR VOMITING Last administered on 12/28/18at 06:10; Admin Dose 4 MG; Start 12/23/18 at 20:30 Albuterol/ Ipratropium (Duoneb) 3 ml Q2H RESP THERAPY PRN NEB SHORTNESS OF BREATH; Start 12/23/18 at 20:30 Nitroglycerin (Nitroglycerin (Sl Tab) 0.4 Mg) 1 tab Q5M PRN SL CHEST PAIN; Start 12/23/18 at 20:30 Acetaminophen (Tylenol Liquid) 650 mg Q6H PRN PO PAIN LEVEL 1-3 OR FEVER Last administered on 12/24/18at 06:07; Admin Dose 650 MG; Start 12/23/18 at 20:30 Pantoprazole (Protonix Tab) 40 mg DAILY@06 PO Last administered on 12/28/18at 06:10; Admin Dose 40 MG; Start 12/24/18 at 06:00 Vancomycin HCl (Vanco Iv Per Pharmacy) VANCOMYCIN PER PHARMACY PER PROTOCOL XX ; Start 12/23/18 at 20:30 Apixaban (Eliquis) 5 mg BID PO Last administered on 12/28/18at 08:14; Admin Dose 5 MG; Start 12/24/18 at 21:00 Amiodarone HCl (Cordarone) 100 mg DAILY PO Last administered on 12/28/18at 08:18; Admin Dose 100 MG; Start 12/24/18 at 09:30 Metoprolol Succinate (Toprol Xl) 50 mg DAILY PO Last administered on 12/28/18at 08:14; Admin Dose 50 MG; Start 12/24/18 at 09:30 Prednisone (Prednisone) 3 mg DAILY PO Last administered on 12/28/18at 08:13; Admin Dose 3 MG; Start 12/24/18 at 10:00 Aspirin (Aspirin) 81 mg DAILY PO Last administered on 12/28/18at 08:15; Admin Dose 81 MG; Start 12/24/18 at 09:30 Tramadol HCl (Ultram) 100 mg Q12 PO Last administered on 12/28/18at 08:25; Admin Dose 100 MG; Start 12/24/18 at 10:00 Gabapentin (Neurontin) 100 mg BID PO Last administered on 12/28/18at 08:14; Admin Dose 100 MG; Start 12/24/18 at 10:00 Insulin Aspart (Novolog Insulin Pen) NOVOLOG *MILD* ALGORITHM WITH MEALS BEDTIME SC ; Start 12/24/18 at 11:30 Patient Own Medication 1 ea DAILY PO Last administered on 12/28/18at 08:19; Admin Dose 1 EA; Start 12/24/18 at 14:00 Miscellaneous Information 1 ea NOTE XX ; Start 12/24/18 at 10:30 Glucose (Glutose) 15 gm Q15M PRN PO DECREASED GLUCOSE; Start 12/24/18 at 10:30 Glucose (Glutose) 22.5 gm Q15M PRN PO DECREASED GLUCOSE; Start 12/24/18 at 10:30 Dextrose (D50w Syringe) 25 ml Q15M PRN IV DECREASED GLUCOSE; Start 12/24/18 at 10:30 Dextrose (D50w Syringe) 50 ml Q15M PRN IV DECREASED GLUCOSE; Start 12/24/18 at 10:30 Glucagon (Glucagen) 1 mg Q15M PRN IM DECREASED GLUCOSE; Start 12/24/18 at 10:30 Glucose (Glutose) 15 gm Q15M PRN BUCCAL DECREASED GLUCOSE; Start 12/24/18 at 10:30 Polyethylene Glycol (Miralax) 17 gm DAILY PO Last administered on 12/28/18at 08:15; Admin Dose 17 GM; Start 12/24/18 at 16:30 Docusate Sodium (Colace) 100 mg BID PO Last administered on 12/28/18at 08:13; Admin Dose 100 MG; Start 12/24/18 at 21:00 Bisacodyl (Dulcolax Supp) 10 mg DAILY PRN [place] CONSTIPATION; Start 12/25/18 at 16:00 Leflunomide (Arava) 10 mg DAILY PO Last administered on 12/28/18at 08:13; Admin Dose 10 MG; Start 12/26/18 at 09:00 Hydralazine HCl (Apresoline) 10 mg Q4H PRN IV ELEVATED SYSTOLIC BP Last administered on 12/27/18at 21:26; Admin Dose 10 MG; Start 12/26/18 at 22:00 Vancomycin HCl 1.25 gm/Sodium Chloride 250 ml @ 83.333 mls/ hr Q24H IVPB Last administered on 12/27/18at 21:08; Admin Dose 83.333 MLS/HR; Start 12/27/18 at 21:00 Meclizine HCl (Antivert) 12.5 mg TID PRN PO dizziness; Start 12/28/18 at 08:00 LESLIE PERES MD December 28, 2018 10:00
--- NOTE | 2018-12-28 13:41 | CONS ---
Assessment/Plan Assessment/Plan Hospital Course (Demo Recall) Patient is alert complaining of nausea she is in no distress looks comfortable no fevers overnight WBC 5.3 platelets 159 no shift no bands BUN 22 creatinine 1.41 Microbiology: Blood culture on admission grew MRSA, urine culture grew Viki albicans, repeat blood cultures negative. Chest x-ray on admission revealed bilateral perihilar and lower lobe hazy opacification suggestive of interstitial pulmonary edema, less likely pneumonia Antimicrobials: Vancomycin Indwelling: Ricardo catheter Physical examination: Morbidly obese well-developed elderly woman who is awake in no distress. Head atraumatic normocephalic sclera nonicteric. Neck is obese. Chest rise symmetrical, breath sounds diminished bases. Heart: S1-S2. Abdomen soft bowel sounds present. Extremities without cyanosis. Assessment: 1. Sepsis, present on admission 2. MRSA bacteremia? etiology. No vegetations per 2D echo 3. Rheumatoid arthritis 4. Morbid obesity 5. Possible pneumonia 6. NSTEMI/CHF exacerbation 7. Diabetes 8. Acute kidney injury Plan: Patient remains stable, blood cultures repeated negative, she is being followed by cardiology and renal teams, recommend complete 2 weeks antibiotics for MRSA bacteremia. Consider thoracal lumbar spine MRI Consultation Date/Type/Reason Admit Date/Time December 23, 2018 at 20:05 Initial Consult Date 12/24/18 Type of Consult id Requesting Provider: LESLIE PERES MD Date/Time of Note DATE: 12/28/18 TIME: 13:40 Exam/Review of Systems Exam Vitals Vital Signs Date Temp Pulse Resp B/P (MAP) Pulse Ox O2 O2 Flow FiO2 Time Delivery Rate 12/28/18 98.2 89 18 140/65 96 08:16 (90) 12/28/18 1.0 04:30 12/27/18 Room Air 20:15 12/26/18 21 21:16 Intake and Output 12/27/18 12/27/18 12/28/18 1515:00 23:00 07:00 IntakeIntake Total 610 ml OutputOutput Total 1480 ml BalanceBalance -870 ml Results Result Diagram: 12/27/18 0613 12/28/18 0626 Results 24hrs Laboratory Tests Test 12/27/18 17:32 12/28/18 00:16 12/28/18 06:26 12/28/18 08:00 Bedside Glucose 139 122 97 Sodium Level 141 Potassium Level 3.7 Chloride Level 103 Carbon Dioxide Level 33 H Anion Gap 5 Blood Urea Nitrogen 22 H Creatinine 1.41 H Est Glomerular 38 L Filtrat Rate mL/min Glucose Level 114 Calcium Level 9.1 Phosphorus Level 3.9 Magnesium Level 1.9 Test 12/28/18 12:14 Bedside Glucose 136 Medications Medication Current Medications Ondansetron HCl (Zofran Inj) 4 mg Q6H PRN IV NAUSEA AND/OR VOMITING Last administered on 12/28/18 12:11; Admin Dose 4 MG; Start 12/23/18 at 20:30 Albuterol/ Ipratropium (Duoneb) 3 ml Q2H RESP THERAPY PRN NEB SHORTNESS OF BREATH; Start 12/23/18 at 20:30 Nitroglycerin (Nitroglycerin (Sl Tab) 0.4 Mg) 1 tab Q5M PRN SL CHEST PAIN; Start 12/23/18 at 20:30 Acetaminophen (Tylenol Liquid) 650 mg Q6H PRN PO PAIN LEVEL 1-3 OR FEVER Last administered on 12/24/18 06:07; Admin Dose 650 MG; Start 12/23/18 at 20:30 Pantoprazole (Protonix Tab) 40 mg DAILY@06 PO Last administered on 12/28/18 06:10; Admin Dose 40 MG; Start 12/24/18 at 06:00 Vancomycin HCl (Vanco Iv Per Pharmacy) VANCOMYCIN PER PHARMACY PER PROTOCOL XX ; Start 12/23/18 at 20:30 Apixaban (Eliquis) 5 mg BID PO Last administered on 12/28/18 08:14; Admin Dose 5 MG; Start 12/24/18 at 21:00 Amiodarone HCl (Cordarone) 100 mg DAILY PO Last administered on 12/28/18 08:18; Admin Dose 100 MG; Start 12/24/18 at 09:30 Metoprolol Succinate (Toprol Xl) 50 mg DAILY PO Last administered on 12/28/18 08:14; Admin Dose 50 MG; Start 12/24/18 at 09:30 Prednisone (Prednisone) 3 mg DAILY PO Last administered on 12/28/18 08:13; Admin Dose 3 MG; Start 12/24/18 at 10:00 Aspirin (Aspirin) 81 mg DAILY PO Last administered on 12/28/18 08:15; Admin Dose 81 MG; Start 12/24/18 at 09:30 Tramadol HCl (Ultram) 100 mg Q12 PO Last administered on 12/28/18at 08:25; Admin Dose 100 MG; Start 12/24/18 at 10:00 Gabapentin (Neurontin) 100 mg BID PO Last administered on 12/28/18at 08:14; Admin Dose 100 MG; Start 12/24/18 at 10:00 Insulin Aspart (Novolog Insulin Pen) NOVOLOG *MILD* ALGORITHM WITH MEALS BEDTIME SC ; Start 12/24/18 at 11:30 Patient Own Medication 1 ea DAILY PO Last administered on 12/28/18at 08:19; Admin Dose 1 EA; Start 12/24/18 at 14:00 Miscellaneous Information 1 ea NOTE XX ; Start 12/24/18 at 10:30 Glucose (Glutose) 15 gm Q15M PRN PO DECREASED GLUCOSE; Start 12/24/18 at 10:30 Glucose (Glutose) 22.5 gm Q15M PRN PO DECREASED GLUCOSE; Start 12/24/18 at 10:30 Dextrose (D50w Syringe) 25 ml Q15M PRN IV DECREASED GLUCOSE; Start 12/24/18 at 10:30 Dextrose (D50w Syringe) 50 ml Q15M PRN IV DECREASED GLUCOSE; Start 12/24/18 at 10:30 Glucagon (Glucagen) 1 mg Q15M PRN IM DECREASED GLUCOSE; Start 12/24/18 at 10:30 Glucose (Glutose) 15 gm Q15M PRN BUCCAL DECREASED GLUCOSE; Start 12/24/18 at 10:30 Polyethylene Glycol (Miralax) 17 gm DAILY PO Last administered on 12/28/18at 08:15; Admin Dose 17 GM; Start 12/24/18 at 16:30 Docusate Sodium (Colace) 100 mg BID PO Last administered on 12/28/18at 08:13; Admin Dose 100 MG; Start 12/24/18 at 21:00 Bisacodyl (Dulcolax Supp) 10 mg DAILY PRN [place] CONSTIPATION; Start 12/25/18 at 16:00 Leflunomide (Arava) 10 mg DAILY PO Last administered on 12/28/18at 08:13; Admin Dose 10 MG; Start 12/26/18 at 09:00 Hydralazine HCl (Apresoline) 10 mg Q4H PRN IV ELEVATED SYSTOLIC BP Last administered on 12/27/18at 21:26; Admin Dose 10 MG; Start 12/26/18 at 22:00 Vancomycin HCl 1.25 gm/Sodium Chloride 250 ml @ 83.333 mls/ hr Q24H IVPB Last administered on 12/27/18at 21:08; Admin Dose 83.333 MLS/HR; Start 12/27/18 at 21:00 Meclizine HCl (Antivert) 12.5 mg TID PRN PO dizziness; Start 12/28/18 at 08:00 JANIS JOHN NP December 28, 2018 13:41
--- NOTE | 2018-12-28 14:03 | PN ---
DATE: 12/28/2018 SUBJECTIVE: The patient is stable. No events overnight. No fevers, chills, nausea, vomiting. OBJECTIVE: VITAL SIGNS: Blood pressure is 140/65, pulse 89, respiration 19, temperature 98.2. HEENT: Head is normocephalic. NECK: Supple. HEART: Regular rate. LUNGS: Show diminished breath sounds at base. ABDOMEN: Soft, nontender to palpation without rebound or guarding. EXTREMITIES: Negative for clubbing, cyanosis. No edema. DERMATOLOGIC: No rashes. MUSCULOSKELETAL: No joint effusion. NEUROLOGIC: No change in exam. MEDICATIONS: Have been reviewed. LABORATORY DATA: Have been reviewed. ASSESSMENT AND PLAN: 1. Nonoliguric kidney injury on top of chronic kidney disease with unknown baseline creatinine. Ninoska ology of acute kidney injury is secondary to sepsis and hemodynamics. The patient's renal function d eclined in last 24 hours after diuretic use. The patient appears euvolemic at this time. Plan at th is point is to continue current treatment plans, supportive care and renally dose all meds. We will h old diuretic therapy. 2. Anemia. Monitor hemoglobin and hematocrit levels. 3. Mineral bone disorder. Monitor calcium and phosphorus levels. 4. Hypertension. Continue current blood pressure regimen. 5. Acute diastolic heart failure. The patient appears euvolemic. We will hold diuretic therapy. M onitor renal function closely. 6. Non-ST elevation myocardial infarction type 2. Continue medical management. Follow up with card iology. 7. Diabetes. Continue current insulin regimen. 8. Atrial fibrillation. Continue medical management. 9. Sepsis secondary to pneumonia. Monitor current antibiotic regimen. 10. History of rheumatoid arthritis. Dictated By: AVE SOFIA DO NR/NTS Conf#: [id number] DID#: [id number] CC: LESLIE PERES MD; WILLIE GLEASON MD; DONG MARLEY MD;*EndCC*
[2018-12-28] MEDS: MECLIZINE 12.5 MG TAB PO PRN (14:30)
[2018-12-28] MEDS: VANCOMYCIN HCL 1.25 GM in SOD CHLORIDE 0.9% 250 ML IVPB SCH (20:06)
[2018-12-29] VITALS (9 sets, daily range): BP systolic 124–173; BP diastolic 57–78; PULSE 58–80; RESP 17–20
[2018-12-29] MEDS: PANTOPRAZOLE (EC) 40 MG TAB PO SCH (05:15)
[2018-12-29] MEDS: MECLIZINE 12.5 MG TAB PO PRN (05:21)
[2018-12-29] MEDS: INSULIN ASPART [NOVOLOG] 3 ML PEN SC SCH ×4 (07:55→21:00)
[2018-12-29] MEDS: LEFLUNOMIDE 20 MG TAB PO SCH (08:23)
[2018-12-29] MEDS: ASPIRIN 81 MG TAB PO SCH (08:24)
[2018-12-29] MEDS: predniSONE 1 MG TAB PO SCH (08:24)
[2018-12-29] MEDS: AMIODARONE 200 MG TAB PO SCH (08:25)
[2018-12-29] MEDS: APIXABAN 5 MG TABLET PO SCH ×2 (08:25→21:09)
[2018-12-29] MEDS: DOCUSATE SODIUM 100 MG CAP PO SCH ×2 (08:25→21:09)
[2018-12-29] MEDS: XELJANZ 11 MG PO SCH (08:26)
[2018-12-29] MEDS: METOPROLOL (XL) 50 MG TAB PO SCH (08:26)
[2018-12-29] MEDS: POLYETHYLENE GLYCOL 17 GM PACKET PO SCH (08:29)
[2018-12-29] MEDS: traMADol 50 MG TAB PO SCH ×2 (08:29→21:09)
[2018-12-29] MEDS: GABAPENTIN 100 MG CAP PO SCH ×2 (08:32→21:09)
--- NOTE | 2018-12-29 11:57 | CONS ---
Assessment/Plan Assessment/Plan Hospital Course (Demo Recall) 1. Nonoliguric kidney injury on top of chronic kidney disease with unknown baseline creatinine. Etiology of acute kidney injury is secondary to sepsis and hemodynamics. renal function slowly improving. The patient appears euvolemic at this time. Plan at this point is to continue current treatment plans, supportive care and renally dose all meds. 2. Anemia. Monitor hemoglobin and hematocrit levels. 3. Mineral bone disorder. Monitor calcium and phosphorus levels. 4. Hypertension. Continue current blood pressure regimen. 5. Acute diastolic heart failure. The patient appears euvolemic. We will hold diuretic therapy. Monitor renal function closely. 6. Non-ST elevation myocardial infarction type 2. Continue medical management. Follow up with cardiology. 7. Diabetes. Continue current insulin regimen. 8. Atrial fibrillation. Continue medical management. 9. Sepsis secondary to pneumonia. Monitor current antibiotic regimen. 10. History of rheumatoid arthritis. Consultation Date/Type/Reason Admit Date/Time December 23, 2018 at 20:05 Initial Consult Date 12/24/18 Requesting Provider: LESLIE PERES MD Date/Time of Note DATE: 12/29/18 TIME: 11:56 24 HR Interval Summary Free Text/Dictation denies shortness of breath, n/v or urinating issues d/w rn gen nad cv rrr pulm ctab abd soft, nd, nt +bs ext: no edema Exam/Review of Systems Exam Vitals Vital Signs Date Temp Pulse Resp B/P (MAP) Pulse Ox O2 O2 Flow FiO2 Time Delivery Rate 12/29/18 98.4 58 20 131/65 98 11:49 (87) 12/28/18 1.0 15:31 12/27/18 Room Air 20:15 12/26/18 21 21:16 Intake and Output 12/28/18 12/28/18 12/29/18 1515:00 23:00 07:00 IntakeIntake Total 450 ml 650 ml 850 ml OutputOutput Total 800 ml 500 ml 800 ml BalanceBalance -350 ml 150 ml 50 ml Results Result Diagram: 12/29/18 0548 12/29/18 0548 Results 24hrs Laboratory Tests Test 12/28/18 12:14 12/28/18 17:29 12/28/18 20:05 12/29/18 05:48 Bedside Glucose 136 127 198 White Blood Count 5.5 Red Blood Count 3.20 L Hemoglobin 9.8 L Hematocrit 32.0 L Mean Corpuscular 100.0 Volume Mean Corpuscular 30.6 Hemoglobin Mean Corpuscular 30.6 L Hemoglobin Concent Red Cell Distribution 13.9 Width Platelet Count 222 # Mean Platelet Volume 10.2 Immature Granulocytes 0.200 % Neutrophils % 54.3 Lymphocytes % 32.5 Monocytes % 10.2 Eosinophils % 2.4 Basophils % 0.4 Nucleated Red Blood 0.0 Cells % Immature Granulocytes 0.010 # Neutrophils # 3.0 Lymphocytes # 1.8 Monocytes # 0.6 Eosinophils # 0.1 Basophils # 0.0 Nucleated Red Blood 0.0 Cells # Sodium Level 140 Potassium Level 3.7 Chloride Level 104 Carbon Dioxide Level 33 H Anion Gap 3 L Blood Urea Nitrogen 20 Creatinine 1.36 H Est Glomerular 39 L Filtrat Rate mL/min Glucose Level 85 Calcium Level 8.8 Phosphorus Level 4.1 Magnesium Level 2.0 Test 12/29/18 07:56 12/29/18 11:51 Bedside Glucose 81 140 Medications Medication Current Medications Ondansetron HCl (Zofran Inj) 4 mg Q6H PRN IV NAUSEA AND/OR VOMITING Last administered on 12/28/18at 12:11; Admin Dose 4 MG; Start 12/23/18 at 20:30 Albuterol/ Ipratropium (Duoneb) 3 ml Q2H RESP THERAPY PRN NEB SHORTNESS OF BR EATH; Start 12/23/18 at 20:30 Nitroglycerin (Nitroglycerin (Sl Tab) 0.4 Mg) 1 tab Q5M PRN SL CHEST PAIN; Start 12/23/18 at 20:30 Acetaminophen (Tylenol Liquid) 650 mg Q6H PRN PO PAIN LEVEL 1-3 OR FEVER Last administered on 12/24/18at 06:07; Admin Dose 650 MG; Start 12/23/18 at 20:30 Pantoprazole (Protonix Tab) 40 mg DAILY@06 PO Last administered on 12/29/18at 05:15; Admin Dose 40 MG; Start 12/24/18 at 06:00 Vancomycin HCl (Vanco Iv Per Pharmacy) VANCOMYCIN PER PHARMACY PER PROTOCOL XX ; Start 12/23/18 at 20:30 Apixaban (Eliquis) 5 mg BID PO Last administered on 12/29/18at 08:25; Admin Dose 5 MG; Start 12/24/18 at 21:00 Amiodarone HCl (Cordarone) 100 mg DAILY PO Last administered on 12/29/18 08:25; Admin Dose 100 MG; Start 12/24/18 at 09:30 Metoprolol Succinate (Toprol Xl) 50 mg DAILY PO Last administered on 12/29/18 08:26; Admin Dose 50 MG; Start 12/24/18 at 09:30 Prednisone (Prednisone) 3 mg DAILY PO Last administered on 12/29/18 08:24; Admin Dose 3 MG; Start 12/24/18 at 10:00 Aspirin (Aspirin) 81 mg DAILY PO Last administered on 12/29/18 08:24; Admin Dose 81 MG; Start 12/24/18 at 09:30 Tramadol HCl (Ultram) 100 mg Q12 PO Last administered on 12/29/18 08:29; Admin Dose 100 MG; Start 12/24/18 at 10:00 Gabapentin (Neurontin) 100 mg BID PO Last administered on 12/29/18at 08:32; Admin Dose 100 MG; Start 12/24/18 at 10:00 Insulin Aspart (Novolog Insulin Pen) NOVOLOG *MILD* ALGORITHM WITH MEALS BEDTIME SC Last administered on 12/28/18 20:26; Admin Dose 1 UNIT; Start 12/24/18 at 11:30 Patient Own Medication 1 ea DAILY PO Last administered on 12/29/18 08:26; Admin Dose 1 EA; Start 12/24/18 at 14:00 Miscellaneous Information 1 ea NOTE XX ; Start 12/24/18 at 10:30 Glucose (Glutose) 15 gm Q15M PRN PO DECREASED GLUCOSE; Start 12/24/18 at 10:30 Glucose (Glutose) 22.5 gm Q15M PRN PO DECREASED GLUCOSE; Start 12/24/18 at 10:30 Dextrose (D50w Syringe) 25 ml Q15M PRN IV DECREASED GLUCOSE; Start 12/24/18 at 10:30 Dextrose (D50w Syringe) 50 ml Q15M PRN IV DECREASED GLUCOSE; Start 12/24/18 at 10:30 Glucagon (Glucagen) 1 mg Q15M PRN IM DECREASED GLUCOSE; Start 12/24/18 at 10:30 Glucose (Glutose) 15 gm Q15M PRN BUCCAL DECREASED GLUCOSE; Start 12/24/18 at 10:30 Polyethylene Glycol (Miralax) 17 gm DAILY PO Last administered on 12/28/18at 08:15; Admin Dose 17 GM; Start 12/24/18 at 16:30 Docusate Sodium (Colace) 100 mg BID PO Last administered on 12/29/18at 08:25; Admin Dose 100 MG; Start 12/24/18 at 21:00 Bisacodyl (Dulcolax Supp) 10 mg DAILY PRN [place] CONSTIPATION; Start 12/25/18 at 16:00 Leflunomide (Arava) 10 mg DAILY PO Last administered on 12/29/18at 08:23; Admin D ose 10 MG; Start 12/26/18 at 09:00 Hydralazine HCl (Apresoline) 10 mg Q4H PRN IV ELEVATED SYSTOLIC BP Last administered on 12/27/18at 21:26; Admin Dose 10 MG; Start 12/26/18 at 22:00 Vancomycin HCl 1.25 gm/Sodium Chloride 250 ml @ 83.333 mls/ hr Q24H IVPB Last administered on 12/28/18at 20:06; Admin Dose 83.333 MLS/HR; Start 12/27/18 at 21:00 Meclizine HCl (Antivert) 12.5 mg TID PO ; Start 12/29/18 at 13:00 DIANA GORDON MD Dec 29, 2018 11:57
[2018-12-29] MEDS: MECLIZINE 12.5 MG TAB PO SCH ×2 (12:02→21:09)
--- NOTE | 2018-12-29 14:08 | PN ---
Date/Time of Note Date/Time of Note DATE: 12/29/18 TIME: 13:46 Assessment/Plan VTE Prophylaxis Risk score (from Ns)>0 risk: 6 SCD applied (from Ns): Yes Pharmacological prophylaxis: apixaban Lines/Catheters IV Catheter Type (from [facility]): Saline Lock Urinary Cath still in place: No Assessment/Plan Assessment/Plan 1. NSTEMI, most likely demand type 2 - remains asymptomatic - Cardiology consultation appreciated and will need to follow up as outpatient 2. BPPV - Meclizine around the clock for relief 3. Acute on chronic heart failure- stable - ECHO results noted with preserved EF - BNP elevated 4. Diabetes Mellitus- resolved - A1c noted - ISS and accuchecks 5. Hypertensive urgency - resolved 6. History of A-fib - rate controlled - continue Eliquis 7. Rheumatoid arthritis - continue home medications 8. KASSIDY- improving - Nephrology consultation appreciated. - may be cardiorenal vs ATN from sepsis - avoid nephrotoxic agents 9. MRSA bacteremia - ID consulted and appreciate recommendations. Will need 2 weeks of IV antibiotics. Requested Midline placement - isolation not needed - repeat cx negative 10. Disposition - Will start Antivert TID. Will need midline placed for antibiotics for another week. If remains stable and no further N/V episodes, will d/c home Result Diagram: 12/29/18 0548 12/29/18 0548 Results 24hrs Laboratory Tests Test 12/28/18 17:29 12/28/18 20:05 12/29/18 05:48 12/29/18 07:56 Bedside Glucose 127 198 81 White Blood Count 5.5 Red Blood Count 3.20 L Hemoglobin 9.8 L Hematocrit 32.0 L Mean Corpuscular 100.0 Volume Mean Corpuscular 30.6 Hemoglobin Mean Corpuscular 30.6 L Hemoglobin Concent Red Cell Distribution 13.9 Width Platelet Count 222 # Mean Platelet Volume 10.2 Immature Granulocytes 0.200 % Neutrophils % 54.3 Lymphocytes % 32.5 Monocytes % 10.2 Eosinophils % 2.4 Basophils % 0.4 Nucleated Red Blood 0.0 Cells % Immature Granulocytes 0.010 # Neutrophils # 3.0 Lymphocytes # 1.8 Monocytes # 0.6 Eosinophils # 0.1 Basophils # 0.0 Nucleated Red Blood 0.0 Cells # Sodium Level 140 Potassium Level 3.7 Chloride Level 104 Carbon Dioxide Level 33 H Anion Gap 3 L Blood Urea Nitrogen 20 Creatinine 1.36 H Est Glomerular Filtrat 39 L Rate mL/min Glucose Level 85 Calcium Level 8.8 Phosphorus Level 4.1 Magnesium Level 2.0 Test 12/29/18 11:51 Bedside Glucose 140 Subjective 24 Hr Interval Summary Free Text/Dictation Patient states the Meclizine is helping with her dizziness. She has not walked with PT since fatigued. No acute overnight events. Exam/Review of Systems Exam Vitals Vital Signs Date Temp Pulse Resp B/P (MAP) Pulse Ox O2 O2 Flow FiO2 Time Delivery Rate 12/29/18 98.4 58 20 131/65 98 11:49 (87) 12/28/18 1.0 15:31 12/27/18 Room Air 20:15 12/26/18 21 21:16 Intake and Output 12/28/18 12/28/18 12/29/18 1515:00 23:00 07:00 IntakeIntake Total 450 ml 650 ml 850 ml OutputOutput Total 800 ml 500 ml 800 ml BalanceBalance -350 ml 150 ml 50 ml Exam General: Patient is pleasant, currently lying in bed, no acute distress Neck: Supple Chest: Nontender Lungs: Clear to auscultation bilaterally, no wheezing or rhonchi Heart: Normal S1-S2, Regular rhythm and rate. No murmur, S3, or S4 Abdomen: Soft , nontender, nondistended , bowel sounds are present. No guarding no rebound tenderness Extremities: Normal to inspection, no edema no cyanosis Results Results 24hrs Laboratory Tests Test 12/28/18 17:29 12/28/18 20:05 12/29/18 05:48 12/29/18 07:56 Bedside Glucose 127 198 81 White Blood Count 5.5 Red Blood Count 3.20 L Hemoglobin 9.8 L Hematocrit 32.0 L Mean Corpuscular 100.0 Volume Mean Corpuscular 30.6 Hemoglobin Mean Corpuscular 30.6 L Hemoglobin Concent Red Cell Distribution 13.9 Width Platelet Count 222 # Mean Platelet Volume 10.2 Immature Granulocytes 0.200 % Neutrophils % 54.3 Lymphocytes % 32.5 Monocytes % 10.2 Eosinophils % 2.4 Basophils % 0.4 Nucleated Red Blood 0.0 Cells % Immature Granulocytes 0.010 # Neutrophils # 3.0 Lymphocytes # 1.8 Monocytes # 0.6 Eosinophils # 0.1 Basophils # 0.0 Nucleated Red Blood 0.0 Cells # Sodium Level 140 Potassium Level 3.7 Chloride Level 104 Carbon Dioxide Level 33 H Anion Gap 3 L Blood Urea Nitrogen 20 Creatinine 1.36 H Est Glomerular Filtrat 39 L Rate mL/min Glucose Level 85 Calcium Level 8.8 Phosphorus Level 4.1 Magnesium Level 2.0 Test 12/29/18 11:51 Bedside Glucose 140 Medications Medication Current Medications Ondansetron HCl (Zofran Inj) 4 mg Q6H PRN IV NAUSEA AND/OR VOMITING Last administered on 12/28/18at 12:11; Admin Dose 4 MG; Start 12/23/18 at 20:30 Albuterol/ Ipratropium (Duoneb) 3 ml Q2H RESP THERAPY PRN NEB SHORTNESS OF BREATH; Start 12/23/18 at 20:30 Nitroglycerin (Nitroglycerin (Sl Tab) 0.4 Mg) 1 tab Q5M PRN SL CHEST PAIN; Start 12/23/18 at 20:30 Acetaminophen (Tylenol Liquid) 650 mg Q6H PRN PO PAIN LEVEL 1-3 OR FEVER Last administered on 12/24/18at 06:07; Admin Dose 650 MG; Start 12/23/18 at 20:30 Pantoprazole (Protonix Tab) 40 mg DAILY@06 PO Last administered on 12/29/18at 05:15; Admin Dose 40 MG; Start 12/24/18 at 06:00 Vancomycin HCl (Vanco Iv Per Pharmacy) VANCOMYCIN PER PHARMACY PER PROTOCOL XX ; Start 12/23/18 at 20:30 Apixaban (Eliquis) 5 mg BID PO Last administered on 12/29/18 08:25; Admin Dose 5 MG; Start 12/24/18 at 21:00 Amiodarone HCl (Cordarone) 100 mg DAILY PO Last administered on 12/29/18 08:25; Admin Dose 100 MG; Start 12/24/18 at 09:30 Metoprolol Succinate (Toprol Xl) 50 mg DAILY PO Last administered on 12/29/18 08:26; Admin Dose 50 MG; Start 12/24/18 at 09:30 Prednisone (Prednisone) 3 mg DAILY PO Last administered on 12/29/18 08:24; Admin Dose 3 MG; Start 12/24/18 at 10:00 Aspirin (Aspirin) 81 mg DAILY PO Last administered on 12/29/18 08:24; Admin Dose 81 MG; Start 12/24/18 at 09:30 Tramadol HCl (Ultram) 100 mg Q12 PO Last administered on 12/29/18 08:29; Admin Dose 100 MG; Start 12/24/18 at 10:00 Gabapentin (Neurontin) 100 mg BID PO Last administered on 12/29/18 08:32; Admin Dose 100 MG; Start 12/24/18 at 10:00 Insulin Aspart (Novolog Insulin Pen) NOVOLOG *MILD* ALGORITHM WITH MEALS BEDTIME SC Last administered on 12/28/18 20:26; Admin Dose 1 UNIT; Start 12/24/18 at 11:30 Patient Own Medication 1 ea DAILY PO Last administered on 12/29/18 08:26; Admin Dose 1 EA; Start 12/24/18 at 14:00 Miscellaneous Information 1 ea NOTE XX ; Start 12/24/18 at 10:30 Glucose (Glutose) 15 gm Q15M PRN PO DECREASED GLUCOSE; Start 12/24/18 at 10:30 Glucose (Glutose) 22.5 gm Q15M PRN PO DECREASED GLUCOSE; Start 12/24/18 at 10:30 Dextrose (D50w Syringe) 25 ml Q15M PRN IV DECREASED GLUCOSE; Start 12/24/18 at 10:30 Dextrose (D50w Syringe) 50 ml Q15M PRN IV DECREASED GLUCOSE; Start 12/24/18 at 10:30 Glucagon (Glucagen) 1 mg Q15M PRN IM DECREASED GLUCOSE; Start 12/24/18 at 10:30 Glucose (Glutose) 15 gm Q15M PRN BUCCAL DECREASED GLUCOSE; Start 12/24/18 at 10:30 Polyethylene Glycol (Miralax) 17 gm DAILY PO Last administered on 12/28/18at 08:15; Admin Dose 17 GM; Start 12/24/18 at 16:30 Docusate Sodium (Colace) 100 mg BID PO Last administered on 12/29/18 08:25; Admin Dose 100 MG; Start 12/24/18 at 21:00 Bisacodyl (Dulcolax Supp) 10 mg DAILY PRN [place] CONSTIPATION; Start 12/25/18 at 16:00 Leflunomide (Arava) 10 mg DAILY PO Last administered on 12/29/18 08:23; Admin Dose 10 MG; Start 12/26/18 at 09:00 Hydralazine HCl (Apresoline) 10 mg Q4H PRN IV ELEVATED SYSTOLIC BP Last administered on 12/27/18at 21:26; Admin Dose 10 MG; Start 12/26/18 at 22:00 Vancomycin HCl 1.25 gm/Sodium Chloride 250 ml @ 83.333 mls/ hr Q24H IVPB Last administered on 12/28/18at 20:06; Admin Dose 83.333 MLS/HR; Start 12/27/18 at 21:00 Meclizine HCl (Antivert) 12.5 mg TID PO Last administered on 12/29/18at 12:02; Admin Dose 12.5 MG; Start 12/29/18 at 13:00 LESLIE PERES MD Dec 29, 2018 13:58
[2018-12-29] MEDS: hydrALAzine 20 MG INJ IV PRN (18:14)
[2018-12-29] MEDS: ONDANSETRON 4 MG INJ IV PRN (21:02)
[2018-12-29] MEDS: VANCOMYCIN HCL 1.25 GM in SOD CHLORIDE 0.9% 250 ML IVPB SCH (21:09)
[2018-12-30] VITALS (12 sets, daily range): BP systolic 104–148; BP diastolic 51–74; PULSE 57–80; RESP 18–20
[2018-12-30] MEDS: PANTOPRAZOLE (EC) 40 MG TAB PO SCH (05:51)
[2018-12-30] MEDS: ONDANSETRON 4 MG INJ IV PRN (05:51)
[2018-12-30] MEDS: INSULIN ASPART [NOVOLOG] 3 ML PEN SC SCH ×4 (07:51→21:00)
[2018-12-30] MEDS: MECLIZINE 12.5 MG TAB PO SCH ×3 (08:17→21:38)
[2018-12-30] MEDS: ASPIRIN 81 MG TAB PO SCH (08:17)
[2018-12-30] MEDS: GABAPENTIN 100 MG CAP PO SCH ×2 (08:17→21:38)
[2018-12-30] MEDS: XELJANZ 11 MG PO SCH (08:17)
[2018-12-30] MEDS: LEFLUNOMIDE 20 MG TAB PO SCH (08:18)
[2018-12-30] MEDS: AMIODARONE 200 MG TAB PO SCH (08:18)
[2018-12-30] MEDS: APIXABAN 5 MG TABLET PO SCH ×2 (08:19→21:37)
[2018-12-30] MEDS: METOPROLOL (XL) 50 MG TAB PO SCH (08:19)
[2018-12-30] MEDS: traMADol 50 MG TAB PO SCH ×2 (08:23→21:38)
[2018-12-30] MEDS: predniSONE 1 MG TAB PO SCH (08:23)
[2018-12-30] MEDS: POLYETHYLENE GLYCOL 17 GM PACKET PO SCH (08:27)
[2018-12-30] MEDS: DOCUSATE SODIUM 100 MG CAP PO SCH ×2 (08:27→21:00)
--- NOTE | 2018-12-30 12:58 | PN ---
Date/Time of Note Date/Time of Note DATE: 12/30/18 TIME: 12:54 Assessment/Plan VTE Prophylaxis Risk score (from Ns)>0 risk: 6 SCD applied (from Ns): Yes Pharmacological prophylaxis: apixaban Lines/Catheters IV Catheter Type (from Nrs): Saline Lock Urinary Cath still in place: Yes Reason Cath still needed: urinary retention Assessment/Plan Assessment/Plan 1. NSTEMI, most likely demand type 2 - remains asymptomatic - Cardiology consultation appreciated and will need to follow up as outpatient 2. BPPV - Meclizine around the clock for relief 3. Acute on chronic heart failure- stable - ECHO results noted with preserved EF - BNP elevated 4. Diabetes Mellitus- resolved - A1c noted - ISS and accuchecks 5. Hypertensive urgency - resolved 6. History of A-fib - rate controlled - continue Eliquis 7. Rheumatoid arthritis - continue home medications 8. KASSIDY - Nephrology consultation appreciated. - may be cardiorenal vs ATN from sepsis - avoid nephrotoxic agents 9. MRSA bacteremia - ID consulted and appreciate recommendations. Will need 2 weeks total of IV antibiotics. - isolation not needed - repeat cx negative 10. Disposition - Renal function still elevated and will need improvement prior to clearance for rehab Result Diagram: 12/30/18 0607 12/30/18 0606 Results 24hrs Laboratory Tests Test 12/29/18 17:46 12/29/18 21:13 12/30/18 06:06 12/30/18 06:07 Bedside Glucose 114 161 Sodium Level 141 Potassium Level 3.7 Chloride Level 104 Carbon Dioxide Level 33 H Anion Gap 4 L Blood Urea Nitrogen 22 H Creatinine 1.63 H Glucose Level 87 Calcium Level 8.5 Phosphorus Level 4.3 Magnesium Level 2.1 Albumin 3.0 L White Blood Count 7.5 # Red Blood Count 3.17 L Hemoglobin 9.6 L Hematocrit 31.9 L Mean Corpuscular Volume 100.6 Mean Corpuscular 30.3 Hemoglobin Mean Corpuscular 30.1 L Hemoglobin Concent Red Cell Distribution 14.0 Width Platelet Count 238 Mean Platelet Volume 10.1 Immature Granulocytes % 0.500 H Neutrophils % 57.5 Lymphocytes % 29.8 Monocytes % 9.1 Eosinophils % 2.3 Basophils % 0.8 Nucleated Red Blood 0.0 Cells % Immature Granulocytes # 0.040 H Neutrophils # 4.3 Lymphocytes # 2.2 Monocytes # 0.7 Eosinophils # 0.2 Basophils # 0.1 Nucleated Red Blood 0.0 Cells # Test 12/30/18 07:50 12/30/18 11:48 Bedside Glucose 91 108 Subjective 24 Hr Interval Summary Free Text/Dictation Patient with dizziness but states shes been scanned head to toe as outpatient without any acute findings. Requesting to be discharged but discussed renal function needs to improved and IV access since need to be placed. Exam/Review of Systems Exam Vitals Vital Signs Date Temp Pulse Resp B/P (MAP) Pulse Ox O2 O2 Flow FiO2 Time Delivery Rate 12/30/18 97.7 68 20 134/64 96 Room Air 11:22 (87) 12/28/18 1.0 15:31 12/26/18 21 21:16 Intake and Output 12/29/18 12/29/18 12/30/18 1515:00 23:00 07:00 IntakeIntake Total 600 ml 320 ml OutputOutput Total 900 ml 650 ml BalanceBalance -300 ml -330 ml Exam General: Patient is pleasant, currently lying in bed, no acute distress Lungs: Clear to auscultation bilaterally, no wheezing or rhonchi Heart: Normal S1-S2, Regular rhythm and rate. No murmur, S3, or S4 Abdomen: Soft , nontender, nondistended , bowel sounds are present. No guarding no rebound tenderness Extremities: Normal to inspection, no edema no cyanosis Results Results 24hrs Laboratory Tests Test 12/29/18 17:46 12/29/18 21:13 12/30/18 06:06 12/30/18 06:07 Bedside Glucose 114 161 Sodium Level 141 Potassium Level 3.7 Chloride Level 104 Carbon Dioxide Level 33 H Anion Gap 4 L Blood Urea Nitrogen 22 H Creatinine 1.63 H Glucose Level 87 Calcium Level 8.5 Phosphorus Level 4.3 Magnesium Level 2.1 Albumin 3.0 L White Blood Count 7.5 # Red Blood Count 3.17 L Hemoglobin 9.6 L Hematocrit 31.9 L Mean Corpuscular Volume 100.6 Mean Corpuscular 30.3 Hemoglobin Mean Corpuscular 30.1 L Hemoglobin Concent Red Cell Distribution 14.0 Width Platelet Count 238 Mean Platelet Volume 10.1 Immature Granulocytes % 0.500 H Neutrophils % 57.5 Lymphocytes % 29.8 Monocytes % 9.1 Eosinophils % 2.3 Basophils % 0.8 Nucleated Red Blood 0.0 Cells % Immature Granulocytes # 0.040 H Neutrophils # 4.3 Lymphocytes # 2.2 Monocytes # 0.7 Eosinophils # 0.2 Basophils # 0.1 Nucleated Red Blood 0.0 Cells # Test 12/30/18 07:50 12/30/18 11:48 Bedside Glucose 91 108 Medications Medication Current Medications Ondansetron HCl (Zofran Inj) 4 mg Q6H PRN IV NAUSEA AND/OR VOMITING Last administered on 12/30/18 05:51; Admin Dose 4 MG; Start 12/23/18 at 20:30 Albuterol/ Ipratropium (Duoneb) 3 ml Q2H RESP THERAPY PRN NEB SHORTNESS OF BREATH; Start 12/23/18 at 20:30 Nitroglycerin (Nitroglycerin (Sl Tab) 0.4 Mg) 1 tab Q5M PRN SL CHEST PAIN; Start 12/23/18 at 20:30 Acetaminophen (Tylenol Liquid) 650 mg Q6H PRN PO PAIN LEVEL 1-3 OR FEVER Last administered on 12/24/18at 06:07; Admin Dose 650 MG; Start 12/23/18 at 20:30 Pantoprazole (Protonix Tab) 40 mg DAILY@06 PO Last administered on 12/30/18 05:51; Admin Dose 40 MG; Start 12/24/18 at 06:00 Vancomycin HCl (Vanco Iv Per Pharmacy) VANCOMYCIN PER PHARMACY PER PROTOCOL XX ; Start 12/23/18 at 20:30 Apixaban (Eliquis) 5 mg BID PO Last administered on 12/30/18at 08:19; Admin Dose 5 MG; Start 12/24/18 at 21:00 Amiodarone HCl (Cordarone) 100 mg DAILY PO Last administered on 12/30/18 08:18; Admin Dose 100 MG; Start 12/24/18 at 09:30 Metoprolol Succinate (Toprol Xl) 50 mg DAILY PO Last administered on 12/30/18 08:19; Admin Dose 50 MG; Start 12/24/18 at 09:30 Prednisone (Prednisone) 3 mg DAILY PO Last administered on 12/30/18 08:23; Ad min Dose 3 MG; Start 12/24/18 at 10:00 Aspirin (Aspirin) 81 mg DAILY PO Last administered on 12/30/18 08:17; Admin Dose 81 MG; Start 12/24/18 at 09:30 Tramadol HCl (Ultram) 100 mg Q12 PO Last administered on 12/30/18at 08:23; Admin Dose 100 MG; Start 12/24/18 at 10:00 Gabapentin (Neurontin) 100 mg BID PO Last administered on 12/30/18at 08:17; Admin Dose 100 MG; Start 12/24/18 at 10:00 Insulin Aspart (Novolog Insulin Pen) NOVOLOG *MILD* ALGORITHM WITH MEALS BEDTIME SC Last administered on 12/28/18at 20:26; Admin Dose 1 UNIT; Start 12/24/18 at 11:30 Patient Own Medication 1 ea DAILY PO Last administered on 12/30/18 08:17; Admin Dose 1 EA; Start 12/24/18 at 14:00 Miscellaneous Information 1 ea NOTE XX ; Start 12/24/18 at 10:30 Glucose (Glutose) 15 gm Q15M PRN PO DECREASED GLUCOSE; Start 12/24/18 at 10:30 Glucose (Glutose) 22.5 gm Q15M PRN PO DECREASED GLUCOSE; Start 12/24/18 at 10:30 Dextrose (D50w Syringe) 25 ml Q15M PRN IV DECREASED GLUCOSE; Start 12/24/18 at 10:30 Dextrose (D50w Syringe) 50 ml Q15M PRN IV DECREASED GLUCOSE; Start 12/24/18 at 10:30 Glucagon (Glucagen) 1 mg Q15M PRN IM DECREASED GLUCOSE; Start 12/24/18 at 10:30 Glucose (Glutose) 15 gm Q15M PRN BUCCAL DECREASED GLUCOSE; Start 12/24/18 at 10:30 Polyethylene Glycol (Miralax) 17 gm DAILY PO Last administered on 12/28/18at 08:15; Admin Dose 17 GM; Start 12/24/18 at 16:30 Docusate Sodium (Colace) 100 mg BID PO Last administered on 12/29/18at 21:09; Admin Dose 100 MG; Start 12/24/18 at 21:00 Bisacodyl (Dulcolax Supp) 10 mg DAILY PRN [place] CONSTIPATION; Start 12/25/18 at 16:00 Leflunomide (Arava) 10 mg DAILY PO Last administered on 12/30/18at 08:18; Admin Dose 10 MG; Start 12/26/18 at 09:00 Hydralazine HCl (Apresoline) 10 mg Q4H PRN IV ELEVATED SYSTOLIC BP Last administered on 12/29/18at 18:14; Admin Dose 10 MG; Start 12/26/18 at 22:00 Vancomycin HCl 1.25 gm/Sodium Chloride 250 ml @ 83.333 mls/ hr Q24H IVPB Last administered on 12/29/18at 21:09; Admin Dose 83.333 MLS/HR; Start 12/27/18 at 21:00 Meclizine HCl (Antivert) 12.5 mg TID PO Last administered on 12/30/18at 08:17; Admin Dose 12.5 MG; Start 12/29/18 at 13:00 Metoclopramide HCl (Reglan) 10 mg Q8 PO ; Start 12/30/18 at 14:00 LESLIE PERES MD Dec 30, 2018 12:58
[2018-12-30] MEDS: METOCLOPRAMIDE 10 MG TAB PO SCH ×2 (13:28→21:38)
--- NOTE | 2018-12-30 13:37 | CONS ---
Assessment/Plan Assessment/Plan Hospital Course (Demo Recall) 1. Nonoliguric kidney injury on top of chronic kidney disease with unknown baseline creatinine. Etiology of acute kidney injury is secondary to sepsis and hemodynamics. renal function was improving, now with worsening function. check urine lytes. The patient appears euvolemic at this time. Plan at this point is to continue current treatment plans, supportive care and renally dose all meds. 2. Anemia. Monitor hemoglobin and hematocrit levels. 3. Mineral bone disorder. Monitor calcium and phosphorus levels. 4. Hypertension. Continue current blood pressure regimen. 5. Acute diastolic heart failure. The patient appears euvolemic. We will hold diuretic therapy. Monitor renal function closely. 6. Non-ST elevation myocardial infarction type 2. Continue medical management. Follow up with cardiology. 7. Diabetes. Continue current insulin regimen. 8. Atrial fibrillation. Continue medical management. 9. Sepsis secondary to pneumonia. Monitor current antibiotic regimen. 10. History of rheumatoid arthritis. Consultation Date/Type/Reason Admit Date/Time December 23, 2018 at 20:05 Initial Consult Date 12/24/18 Requesting Provider: LESLIE PERES MD Date/Time of Note DATE: 12/30/18 TIME: 13:36 24 HR Interval Summary Free Text/Dictation denies n/v or diarrhea no shortness of breath urinating without issues tolerating po d/w rn gen nad cv rrr pulm ctab abd soft, nd, nt +bs ext: no edema Exam/Review of Systems Exam Vitals Vital Signs Date Temp Pulse Resp B/P (MAP) Pulse Ox O2 O2 Flow FiO2 Time Delivery Rate 12/30/18 97.7 68 20 134/64 96 Room Air 11:22 (87) 12/28/18 1.0 15:31 12/26/18 21 21:16 Intake and Output 12/29/18 12/29/18 12/30/18 1515:00 23:00 07:00 IntakeIntake Total 600 ml 320 ml OutputOutput Total 900 ml 650 ml BalanceBalance -300 ml -330 ml Results Result Diagram: 12/30/18 0607 12/30/18 0606 Results 24hrs Laboratory Tests Test 12/29/18 17:46 12/29/18 21:13 12/30/18 06:06 12/30/18 06:07 Bedside Glucose 114 161 Sodium Level 141 Potassium Level 3.7 Chloride Level 104 Carbon Dioxide Level 33 H Anion Gap 4 L Blood Urea Nitrogen 22 H Creatinine 1.63 H Glucose Level 87 Calcium Level 8.5 Phosphorus Level 4.3 Magnesium Level 2.1 Albumin 3.0 L White Blood Count 7.5 # Red Blood Count 3.17 L Hemoglobin 9.6 L Hematocrit 31.9 L Mean Corpuscular Volume 100.6 Mean Corpuscular 30.3 Hemoglobin Mean Corpuscular 30.1 L Hemoglobin Concent Red Cell Distribution 14.0 Width Platelet Count 238 Mean Platelet Volume 10.1 Immature Granulocytes % 0.500 H Neutrophils % 57.5 Lymphocytes % 29.8 Monocytes % 9.1 Eosinophils % 2.3 Basophils % 0.8 Nucleated Red Blood 0.0 Cells % Immature Granulocytes # 0.040 H Neutrophils # 4.3 Lymphocytes # 2.2 Monocytes # 0.7 Eosinophils # 0.2 Basophils # 0.1 Nucleated Red Blood 0.0 Cells # Test 12/30/18 07:50 12/30/18 11:48 Bedside Glucose 91 108 Medications Medication Current Medications Ondansetron HCl (Zofran Inj) 4 mg Q6H PRN IV NAUSEA AND/OR VOMITING Last administered on 12/30/18at 05:51; Admin Dose 4 MG; Start 12/23/18 at 20:30 Albuterol/ Ipratropium (Duoneb) 3 ml Q2H RESP THERAPY PRN NEB SHORTNESS OF ALMITA ATH; Start 12/23/18 at 20:30 Nitroglycerin (Nitroglycerin (Sl Tab) 0.4 Mg) 1 tab Q5M PRN SL CHEST PAIN; Start 12/23/18 at 20:30 Acetaminophen (Tylenol Liquid) 650 mg Q6H PRN PO PAIN LEVEL 1-3 OR FEVER Last administered on 12/24/18at 06:07; Admin Dose 650 MG; Start 12/23/18 at 20:30 Pantoprazole (Protonix Tab) 40 mg DAILY@06 PO Last administered on 12/30/18at 05:51; Admin Dose 40 MG; Start 12/24/18 at 06:00 Vancomycin HCl (Vanco Iv Per Pharmacy) VANCOMYCIN PER PHARMACY PER PROTOCOL XX ; Start 12/23/18 at 20:30 Apixaban (Eliquis) 5 mg BID PO Last administered on 12/30/18at 08:19; Admin Dose 5 MG; Start 12/24/18 at 21:00 Amiodarone HCl (Cordarone) 100 mg DAILY PO Last administered on 12/30/18 08:18; Admin Dose 100 MG; Start 12/24/18 at 09:30 Metoprolol Succinate (Toprol Xl) 50 mg DAILY PO Last administered on 12/30/18 08:19; Admin Dose 50 MG; Start 12/24/18 at 09:30 Prednisone (Prednisone) 3 mg DAILY PO Last administered on 12/30/18 08:23; Admin Dose 3 MG; Start 12/24/18 at 10:00 Aspirin (Aspirin) 81 mg DAILY PO Last administered on 12/30/18 08:17; Admin Dose 81 MG; Start 12/24/18 at 09:30 Tramadol HCl (Ultram) 100 mg Q12 PO Last administered on 12/30/18 08:23; Admin Dose 100 MG; Start 12/24/18 at 10:00 Gabapentin (Neurontin) 100 mg BID PO Last administered on 12/30/18 08:17; Admin Dose 100 MG; Start 12/24/18 at 10:00 Insulin Aspart (Novolog Insulin Pen) NOVOLOG *MILD* ALGORITHM WITH MEALS BEDTIME SC Last administered on 12/28/18 20:26; Admin Dose 1 UNIT; Start 12/24/18 at 11:30 Patient Own Medication 1 ea DAILY PO Last administered on 12/30/18 08:17; Admin Dose 1 EA; Start 12/24/18 at 14:00 Miscellaneous Information 1 ea NOTE XX ; Start 12/24/18 at 10:30 Glucose (Glutose) 15 gm Q15M PRN PO DECREASED GLUCOSE; Start 12/24/18 at 10:30 Glucose (Glutose) 22.5 gm Q15M PRN PO DECREASED GLUCOSE; Start 12/24/18 at 10:30 Dextrose (D50w Syringe) 25 ml Q15M PRN IV DECREASED GLUCOSE; Start 12/24/18 at 10:30 Dextrose (D50w Syringe) 50 ml Q15M PRN IV DECREASED GLUCOSE; Start 12/24/18 at 10:30 Glucagon (Glucagen) 1 mg Q15M PRN IM DECREASED GLUCOSE; Start 12/24/18 at 10:30 Glucose (Glutose) 15 gm Q15M PRN BUCCAL DECREASED GLUCOSE; Start 12/24/18 at 10:30 Polyethylene Glycol (Miralax) 17 gm DAILY PO Last administered on 12/28/18 08:15; Admin Dose 17 GM; Start 12/24/18 at 16:30 Docusate Sodium (Colace) 100 mg BID PO Last administered on 12/29/18 21:09; Admin Dose 100 MG; Start 12/24/18 at 21:00 Bisacodyl (Dulcolax Supp) 10 mg DAILY PRN [place] CONSTIPATION; Start 12/25/18 at 16:00 Leflunomide (Arava) 10 mg DAILY PO Last administered on 12/30/18 08:18; Admin Dose 10 MG; Start 12/26/18 at 09:00 Hydralazine HCl (Apresoline) 10 mg Q4H PRN IV ELEVATED SYSTOLIC BP Last administered on 12/29/18 18:14; Admin Dose 10 MG; Start 12/26/18 at 22:00 Vancomycin HCl 1.25 gm/Sodium Chloride 250 ml @ 83.333 mls/ hr Q24H IVPB Last administered on 12/29/18 21:09; Admin Dose 83.333 MLS/HR; Start 12/27/18 at 21:00 Meclizine HCl (Antivert) 12.5 mg TID PO Last administered on 12/30/18 13:27; Admin Dose 12.5 MG; Start 12/29/18 at 13:00 Metoclopramide HCl (Reglan) 10 mg Q8 PO Last administered on 12/30/18 13:28; Admin Dose 10 MG; Start 12/30/18 at 14:00 DIANA GORDON MD Dec 30, 2018 13:37
--- NOTE | 2018-12-30 15:13 | CONS ---
Assessment/Plan Assessment/Plan Hospital Course (Demo Recall) No acute changes overnight, no fevers, patient is sleeping, looks comfortable Microbiology: Blood culture on admission grew MRSA, urine culture grew Viki albicans, repeat blood cultures negative. Chest x-ray on admission revealed bilateral perihilar and lower lobe hazy opacification suggestive of interstitial pulmonary edema, less likely pneumonia Antimicrobials: Vancomycin Indwelling: Ricardo catheter Physical examination: Morbidly obese well-developed elderly woman who is awake in no distress. Head atraumatic normocephalic sclera nonicteric. Neck is obese. Chest rise symmetrical, breath sounds diminished bases. Heart: S1-S2. Abdomen soft bowel sounds present. Extremities without cyanosis. Assessment: 1. Sepsis, present on admission 2. MRSA bacteremia? etiology. No vegetations per 2D echo 3. Rheumatoid arthritis 4. Morbid obesity 5. Possible pneumonia 6. NSTEMI/CHF exacerbation 7. Diabetes 8. Acute kidney injury Plan: Clinically unchanged, refused spinal MRI, change antibiotics to IV clindamycin given worsening renal function, continue for 10 more days Consultation Date/Type/Reason Admit Date/Time December 23, 2018 at 20:05 Initial Consult Date 12/24/18 Type of Consult id Requesting Provider: LESLIE PERES MD Date/Time of Note DATE: 12/30/18 TIME: 15:12 Exam/Review of Systems Exam Vitals Vital Signs Date Temp Pulse Resp B/P (MAP) Pulse Ox O2 O2 Flow FiO2 Time Delivery Rate 12/30/18 60 12:01 12/30/18 97.7 20 134/64 96 Room Air 11:22 (87) 12/28/18 1.0 15:31 12/26/18 21 21:16 Intake and Output 12/29/18 12/29/18 12/30/18 1515:00 23:00 07:00 IntakeIntake Total 600 ml 320 ml OutputOutput Total 900 ml 650 ml BalanceBalance -300 ml -330 ml Results Result Diagram: 12/30/18 0607 12/30/18 0606 Results 24hrs Laboratory Tests Test 12/29/18 17:46 12/29/18 21:13 12/30/18 06:06 12/30/18 06:07 Bedside Glucose 114 161 Sodium Level 141 Potassium Level 3.7 Chloride Level 104 Carbon Dioxide Level 33 H Anion Gap 4 L Blood Urea Nitrogen 22 H Creatinine 1.63 H Glucose Level 87 Calcium Level 8.5 Phosphorus Level 4.3 Magnesium Level 2.1 Albumin 3.0 L White Blood Count 7.5 # Red Blood Count 3.17 L Hemoglobin 9.6 L Hematocrit 31.9 L Mean Corpuscular Volume 100.6 Mean Corpuscular 30.3 Hemoglobin Mean Corpuscular 30.1 L Hemoglobin Concent Red Cell Distribution 14.0 Width Platelet Count 238 Mean Platelet Volume 10.1 Immature Granulocytes % 0.500 H Neutrophils % 57.5 Lymphocytes % 29.8 Monocytes % 9.1 Eosinophils % 2.3 Basophils % 0.8 Nucleated Red Blood 0.0 Cells % Immature Granulocytes # 0.040 H Neutrophils # 4.3 Lymphocytes # 2.2 Monocytes # 0.7 Eosinophils # 0.2 Basophils # 0.1 Nucleated Red Blood 0.0 Cells # Test 12/30/18 07:50 12/30/18 11:48 Bedside Glucose 91 108 Medications Medication Current Medications Ondansetron HCl (Zofran Inj) 4 mg Q6H PRN IV NAUSEA AND/OR VOMITING Last administered on 12/30/18at 05:51; Admin Dose 4 MG; Start 12/23/18 at 20:30 Albuterol/ Ipratropium (Duoneb) 3 ml Q2H RESP THERAPY PRN NEB SHORTNESS OF BREATH; Start 12/23/18 at 20:30 Nitroglycerin (Nitroglycerin (Sl Tab) 0.4 Mg) 1 tab Q5M PRN SL CHEST PAIN; Start 12/23/18 at 20:30 Acetaminophen (Tylenol Liquid) 650 mg Q6H PRN PO PAIN LEVEL 1-3 OR FEVER Last administered on 12/24/18at 06:07; Admin Dose 650 MG; Start 12/23/18 at 20:30 Pantoprazole (Protonix Tab) 40 mg DAILY@06 PO Last administered on 12/30/18at 05:51; Admin Dose 40 MG; Start 12/24/18 at 06:00 Vancomycin HCl (Vanco Iv Per Pharmacy) VANCOMYCIN PER PHARMACY PER PROTOCOL XX ; Start 12/23/18 at 20:30 Apixaban (Eliquis) 5 mg BID PO Last administered on 12/30/18at 08:19; Admin Dose 5 MG; Start 12/24/18 at 21:00 Amiodarone HCl (Cordarone) 100 mg DAILY PO Last administered on 12/30/18 08:18; Admin Dose 100 MG; Start 12/24/18 at 09:30 Metoprolol Succinate (Toprol Xl) 50 mg DAILY PO Last administered on 12/30/18 08:19; Admin Dose 50 MG; Start 12/24/18 at 09:30 Prednisone (Prednisone) 3 mg DAILY PO Last administered on 12/30/18 08:23; Admin Dose 3 MG; Start 12/24/18 at 10:00 Aspirin (Aspirin) 81 mg DAILY PO Last administered on 12/30/18 08:17; Admin Dose 81 MG; Start 12/24/18 at 09:30 Tramadol HCl (Ultram) 100 mg Q12 PO Last administered on 12/30/18 08:23; Admin Dose 100 MG; Start 12/24/18 at 10:00 Gabapentin (Neurontin) 100 mg BID PO Last administered on 12/30/18 08:17; Admin Dose 100 MG; Start 12/24/18 at 10:00 Insulin Aspart (Novolog Insulin Pen) NOVOLOG *MILD* ALGORITHM WITH MEALS BEDTIME SC Last administered on 12/28/18 20:26; Admin Dose 1 UNIT; Start 12/24/18 at 11:30 Patient Own Medication 1 ea DAILY PO Last administered on 12/30/18 08:17; Admin Dose 1 EA; Start 12/24/18 at 14:00 Miscellaneous Information 1 ea NOTE XX ; Start 12/24/18 at 10:30 Glucose (Glutose) 15 gm Q15M PRN PO DECREASED GLUCOSE; Start 12/24/18 at 10:30 Glucose (Glutose) 22.5 gm Q15M PRN PO DECREASED GLUCOSE; Start 12/24/18 at 10:30 Dextrose (D50w Syringe) 25 ml Q15M PRN IV DECREASED GLUCOSE; Start 12/24/18 at 10:30 Dextrose (D50w Syringe) 50 ml Q15M PRN IV DECREASED GLUCOSE; Start 12/24/18 at 10:30 Glucagon (Glucagen) 1 mg Q15M PRN IM DECREASED GLUCOSE; Start 12/24/18 at 10:30 Glucose (Glutose) 15 gm Q15M PRN BUCCAL DECREASED GLUCOSE; Start 12/24/18 at 10:30 Polyethylene Glycol (Miralax) 17 gm DAILY PO Last administered on 12/28/18 08:15; Admin Dose 17 GM; Start 12/24/18 at 16:30 Docusate Sodium (Colace) 100 mg BID PO Last administered on 12/29/18 21:09; Admin Dose 100 MG; Start 12/24/18 at 21:00 Bisacodyl (Dulcolax Supp) 10 mg DAILY PRN [place] CONSTIPATION; Start 12/25/18 at 16:00 Leflunomide (Arava) 10 mg DAILY PO Last administered on 12/30/18at 08:18; Admin Dose 10 MG; Start 12/26/18 at 09:00 Hydralazine HCl (Apresoline) 10 mg Q4H PRN IV ELEVATED SYSTOLIC BP Last admi nistered on 12/29/18 18:14; Admin Dose 10 MG; Start 12/26/18 at 22:00 Vancomycin HCl 1.25 gm/Sodium Chloride 250 ml @ 83.333 mls/ hr Q24H IVPB Last administered on 12/29/18at 21:09; Admin Dose 83.333 MLS/HR; Start 12/27/18 at 21:00 Meclizine HCl (Antivert) 12.5 mg TID PO Last administered on 12/30/18 13:27; Admin Dose 12.5 MG; Start 12/29/18 at 13:00 Metoclopramide HCl (Reglan) 10 mg Q8 PO Last administered on 12/30/18 13:28; Admin Dose 10 MG; Start 12/30/18 at 14:00 JANIS JOHN NP Dec 30, 2018 15:13
[2018-12-30] MEDS: CLINDAMYCIN 600 MG/D5W (PMX) 50 ML IVPB SCH (21:38)
[2018-12-31] VITALS (11 sets, daily range): BP systolic 107–171; BP diastolic 57–86; PULSE 61–92; RESP 16–20
[2018-12-31] MEDS: CLINDAMYCIN 600 MG/D5W (PMX) 50 ML IVPB SCH ×3 (06:28→20:46)
[2018-12-31] MEDS: PANTOPRAZOLE (EC) 40 MG TAB PO SCH (06:28)
[2018-12-31] MEDS: METOCLOPRAMIDE 10 MG TAB PO SCH ×3 (06:28→20:42)
[2018-12-31] MEDS: INSULIN ASPART [NOVOLOG] 3 ML PEN SC SCH ×4 (07:55→20:46)
[2018-12-31] MEDS: DOCUSATE SODIUM 100 MG CAP PO SCH ×2 (09:00→20:41)
[2018-12-31] MEDS: POLYETHYLENE GLYCOL 17 GM PACKET PO SCH (09:00)
[2018-12-31] MEDS: traMADol 50 MG TAB PO SCH ×2 (09:37→20:43)
[2018-12-31] MEDS: GABAPENTIN 100 MG CAP PO SCH ×2 (09:37→20:41)
[2018-12-31] MEDS: XELJANZ 11 MG PO SCH (09:38)
[2018-12-31] MEDS: LEFLUNOMIDE 20 MG TAB PO SCH (09:38)
[2018-12-31] MEDS: METOPROLOL (XL) 50 MG TAB PO SCH (09:44)
[2018-12-31] MEDS: predniSONE 1 MG TAB PO SCH (09:45)
[2018-12-31] MEDS: MECLIZINE 12.5 MG TAB PO SCH ×3 (09:45→20:42)
[2018-12-31] MEDS: AMIODARONE 200 MG TAB PO SCH (09:45)
[2018-12-31] MEDS: APIXABAN 5 MG TABLET PO SCH ×2 (09:46→20:42)
[2018-12-31] MEDS: ASPIRIN 81 MG TAB PO SCH (09:46)
--- NOTE | 2018-12-31 11:43 | PN ---
Date/Time of Note Date/Time of Note DATE: 12/31/18 TIME: 11:40 Objective Vitals Vital Signs Date Temp Pulse Resp B/P (MAP) Pulse Ox O2 O2 Flow FiO2 Time Delivery Rate 12/31/18 98.3 61 167/86 96 11:29 (113) 12/31/18 16 07:34 12/31/18 Room Air 04:00 12/30/18 1.0 20:35 Intake and Output 12/30/18 12/30/18 12/31/18 1515:00 23:00 07:00 IntakeIntake Total 550 ml 370 ml OutputOutput Total 700 ml 850 ml BalanceBalance -150 ml -480 ml Results Result Diagram: 12/31/1861312/31/18613 Medications Medications Current Medications Ondansetron HCl (Zofran Inj) 4 mg Q6H PRN IV NAUSEA AND/OR VOMITING Last administered on 12/30/18at 05:51; Admin Dose 4 MG; Start 12/23/18 at 20:30 Albuterol/ Ipratropium (Duoneb) 3 ml Q2H RESP THERAPY PRN NEB SHORTNESS OF BREATH; Start 12/23/18 at 20:30 Nitroglycerin (Nitroglycerin (Sl Tab) 0.4 Mg) 1 tab Q5M PRN SL CHEST PAIN; Start 12/23/18 at 20:30 Acetaminophen (Tylenol Liquid) 650 mg Q6H PRN PO PAIN LEVEL 1-3 OR FEVER Last administered on 12/24/18at 06:07; Admin Dose 650 MG; Start 12/23/18 at 20:30 Pantoprazole (Protonix Tab) 40 mg DAILY@06 PO Last administered on 12/31/18at 06:28; Admin Dose 40 MG; Start 12/24/18 at 06:00 Apixaban (Eliquis) 5 mg BID PO Last administered on 12/31/18 09:46; Admin Dose 5 MG; Start 12/24/18 at 21:00 Amiodarone HCl (Cordarone) 100 mg DAILY PO Last administered on 12/31/18 09:45; Admin Dose 100 MG; Start 12/24/18 at 09:30 Metoprolol Succinate (Toprol Xl) 50 mg DAILY PO Last administered on 12/31/18at 09:44; Admin Dose 50 MG; Start 12/24/18 at 09:30 Prednisone (Prednisone) 3 mg DAILY PO Last administered on 12/31/18 09:45; Admin Dose 3 MG; Start 12/24/18 at 10:00 Aspirin (Aspirin) 81 mg DAILY PO Last administered on 12/31/18 09:46; Admin Dose 81 MG; Start 12/24/18 at 09:30 Tramadol HCl (Ultram) 100 mg Q12 PO Last administered on 12/31/18 09:37; Admin Dose 100 MG; Start 12/24/18 at 10:00 Gabapentin (Neurontin) 100 mg BID PO Last administered on 12/31/18 09:37; Admin Dose 100 MG; Start 12/24/18 at 10:00 Insulin Aspart (Novolog Insulin Pen) NOVOLOG *MILD* ALGORITHM WITH MEALS BEDTIME SC Last administered on 12/28/18at 20:26; Admin Dose 1 UNIT; Start 12/24/18 at 11:30 Patient Own Medication 1 ea DAILY PO Last administered on 12/31/18 09:38; Admin Dose 1 EA; Start 12/24/18 at 14:00 Miscellaneous Information 1 ea NOTE XX ; Start 12/24/18 at 10:30 Glucose (Glutose) 15 gm Q15M PRN PO DECREASED GLUCOSE; Start 12/24/18 at 10:30 Glucose (Glutose) 22.5 gm Q15M PRN PO DECREASED GLUCOSE; Start 12/24/18 at 10:30 Dextrose (D50w Syringe) 25 ml Q15M PRN IV DECREASED GLUCOSE; Start 12/24/18 at 10:30 Dextrose (D50w Syringe) 50 ml Q15M PRN IV DECREASED GLUCOSE; Start 12/24/18 at 10:30 Glucagon (Glucagen) 1 mg Q15M PRN IM DECREASED GLUCOSE; Start 12/24/18 at 10:30 Glucose (Glutose) 15 gm Q15M PRN BUCCAL DECREASED GLUCOSE; Start 12/24/18 at 10:30 Polyethylene Glycol (Miralax) 17 gm DAILY PO Last administered on 12/28/18at 08:15; Admin Dose 17 GM; Start 12/24/18 at 16:30 Docusate Sodium (Colace) 100 mg BID PO Last administered on 12/29/18at 21:09; Admin Dose 100 MG; Start 12/24/18 at 21:00 Bisacodyl (Dulcolax Supp) 10 mg DAILY PRN [place] CONSTIPATION; Start 12/25/18 at 16:00 Leflunomide (Arava) 10 mg DAILY PO Last administered on 12/31/18at 09:38; Admin Dose 10 MG; Start 12/26/18 at 09:00 Hydralazine HCl (Apresoline) 10 mg Q4H PRN IV ELEVATED SYSTOLIC BP Last administered on 12/29/18at 18:14; Admin Dose 10 MG; Start 12/26/18 at 22:00 Meclizine HCl (Antivert) 12.5 mg TID PO Last administered on 12/31/18 09:45; Admin Dose 12.5 MG; Start 12/29/18 at 13:00 Metoclopramide HCl (Reglan) 10 mg Q8 PO Last administered on 12/31/18 06:28; Admin Dose 10 MG; Start 12/30/18 at 14:00 Clindamycin HCl/ Dextrose 50 ml @ 50 mls/hr Q8 IVPB Last administered on 12/31/18 06:28; Admin Dose 50 MLS/HR; Start 12/30/18 at 22:00 Atorvastatin Calcium (Lipitor) 20 mg HS PO ; Start 12/31/18 at 21:00 VTE Prophylaxis Risk score (from Ns)>0 risk: 6 SCD applied (from Ns): Yes Lines/Catheters IV Catheter Type: Ricardo in Place: No Assessment/Plan Hospital Course Subjective Minimal chronic dizziness, no chest pain, patient overall feels just mildly weak but feels well, has chronic joint pain due to her rheumatoid arthritis Objective Physical exam General: Patient is laying in bed and answers questions appropriately Mentation: Patient is alert and oriented 4, Head: Normocephalic atraumatic Eyes: EOMI, pupils reactive to light Neck: Supple, nontender, midline Respiratory: Clear to auscultation bilaterally Cardiovascular: regular rate, no obvious murmurs Gastrointestinal: non-tender to palpation, bowel sounds heard. Neurological: Moves all extremities spontaneously Skin: No new skin lesions Assessment/Plan 1. NSTEMI, most likely demand type 2 - remains asymptomatic, patient refused stress test. - Cardiology consultation appreciated and will need to follow up as outpatient 2. BPPV - Meclizine around the clock for relief 3. Acute on chronic heart failure- stable - ECHO results noted with preserved EF - BNP elevated 4. Diabetes Mellitus- resolved - A1c noted - ISS and accuchecks 5. Hypertensive urgency - resolved 6. History of A-fib - rate controlled - continue Eliquis 7. Rheumatoid arthritis - continue home medications 8. KASSIDY - Nephrology consultation appreciated. - may be cardiorenal vs ATN from sepsis - avoid nephrotoxic agents 9. MRSA bacteremia - ID consulted and appreciate recommendations. Will need 2 weeks total of IV antibiotics. - isolation not needed - repeat cx negative 10. Disposition - Renal function still elevated and will need improvement prior to clearance for rehab ADRIAN GORDON Dec 31, 2018 11:43
--- NOTE | 2018-12-31 14:15 | PN ---
DATE: 12/31/2018 SUBJECTIVE: The patient is stable. No events overnight. OBJECTIVE: VITAL SIGNS: Blood pressure is 107/57, pulse 67, respirations 16, temperature 98.7. HEENT: Head is normocephalic. NECK: Supple. HEART: Regular rate. LUNGS: Show diminished breath sounds at base. ABDOMEN: Soft, nontender to palpation without rebound or guarding. EXTREMITIES: Negative for clubbing, cyanosis. No edema. DERMATOLOGIC: No rashes. MUSCULOSKELETAL: No joint effusion. NEUROLOGIC: No change in exam. MEDICATIONS: Have been reviewed. LABORATORY DATA: Have been reviewed. ASSESSMENT AND PLAN: 1. Nonoliguric acute kidney injury on top of chronic kidney disease with unknown baseline creatinine . Etiology of acute kidney injury is secondary to sepsis, hemodynamics. Renal function initially im proved; however, declined in the last several days. Etiology is likely due to hemodynamics, recent d iuretic therapy. The patient's urine electrolytes were reviewed. At this point, continue current tr eatment plan, supportive care, renally dose all meds. We would defer any diuretic therapy. Addition ally, we would consider discontinuing vancomycin in setting of worsening renal function. We would ot herwise continue renally dose all meds, avoid nephrotoxins. 2. Anemia. Monitor hemoglobin and hematocrit levels. 3. Mineral bone disorder. Monitor calcium and phosphorus levels. 4. Hypertension. Continue current blood pressure regimen. 5. Acute diastolic heart failure. The patient appears euvolemic. Holding diuretic therapy. 6. Non-ST elevation myocardial infarction. Continue medical management. 7. Diabetes. Continue current insulin regimen. 8. Atrial fibrillation. Continue medical management. 9. Sepsis secondary to pneumonia. The patient is clinically improving. I agree with holding vancom ycin. 10. History of rheumatoid arthritis. Dictated By: AVE SOFIA DO NR/NTS Conf#: [id number] DID#: [id number] CC: DONG MARLEY MD; WILLIE GLEASON MD; ADRIAN GORDON MD;*EndCC*
--- NOTE | 2018-12-31 14:24 | CONS ---
Assessment/Plan Assessment/Plan Hospital Course (Demo Recall) No acute changes overnight, alert, feele better Microbiology: Blood culture on admission grew MRSA, urine culture grew Viki albicans, repeat blood cultures negative. Chest x-ray on admission revealed bilateral perihilar and lower lobe hazy opacification suggestive of interstitial pulmonary edema, less likely pneumonia Antimicrobials: Clindamycin Indwelling: Ricardo catheter Physical examination: Morbidly obese well-developed elderly woman who is awake in no distress. Head atraumatic normocephalic sclera nonicteric. Neck is obese. Chest rise symmetrical, breath sounds diminished bases. Heart: S1-S2. Abdomen soft bowel sounds present. Extremities without cyanosis. Assessment: 1. Sepsis, present on admission 2. MRSA bacteremia? etiology. No vegetations per 2D echo 3. Rheumatoid arthritis 4. Morbid obesity 5. Possible pneumonia 6. NSTEMI/CHF exacerbation 7. Diabetes 8. Acute kidney injury Plan: Stable, continue abx==> last dose 01/08, monitor renal f-n Consultation Date/Type/Reason Admit Date/Time December 23, 2018 at 20:05 Initial Consult Date 12/24/18 Type of Consult id Requesting Provider: LESLIE PERES MD Date/Time of Note DATE: 12/31/18 TIME: 14:22 Exam/Review of Systems Exam Vitals Vital Signs Date Temp Pulse Resp B/P (MAP) Pulse Ox O2 O2 Flow FiO2 Time Delivery Rate 12/31/18 61 12:01 12/31/18 98.3 167/86 96 11:29 (113) 12/31/18 16 07:34 12/31/18 Room Air 04:00 12/30/18 1.0 20:35 Intake and Output 12/30/18 12/30/18 12/31/18 1515:00 23:00 07:00 IntakeIntake Total 550 ml 370 ml OutputOutput Total 700 ml 850 ml BalanceBalance -150 ml -480 ml Results Result Diagram: 12/31/18 0614 12/31/18613 Results 24hrs Laboratory Tests Test 12/30/18 17:46 12/30/18 21:44 12/31/18 06:14 12/31/18 07:55 Bedside Glucose 128 168 85 White Blood Count 8.4 Red Blood Count 3.39 L Hemoglobin 10.4 L Hematocrit 34.0 L Mean Corpuscular Volume 100.3 Mean Corpuscular 30.7 Hemoglobin Mean Corpuscular 30.6 L Hemoglobin Concent Red Cell Distribution 14.2 Width Platelet Count 248 Mean Platelet Volume 10.4 Immature Granulocytes % 1.200 H Neutrophils % 62.7 Lymphocytes % 23.9 Monocytes % 9.4 Eosinophils % 2.1 Basophils % 0.7 Nucleated Red Blood 0.0 Cells % Immature Granulocytes # 0.100 H Neutrophils # 5.3 Lymphocytes # 2.0 Monocytes # 0.8 Eosinophils # 0.2 Basophils # 0.1 Nucleated Red Blood 0.0 Cells # Sodium Level 142 Potassium Level 4.1 Chloride Level 105 Carbon Dioxide Level 32 H Anion Gap 5 Blood Urea Nitrogen 25 H Creatinine 1.70 H Glucose Level 81 Calcium Level 8.9 Phosphorus Level 4.5 Magnesium Level 2.1 Albumin 3.3 Test 12/31/18 11:45 Bedside Glucose 115 Medications Medication Current Medications Ondansetron HCl (Zofran Inj) 4 mg Q6H PRN IV NAUSEA AND/OR VOMITING Last administered on 12/30/18 05:51; Admin Dose 4 MG; Start 12/23/18 at 20:30 Albuterol/ Ipratropium (Duoneb) 3 ml Q2H RESP THERAPY PRN NEB SHORTNESS OF BREATH; Start 12/23/18 at 20:30 Nitroglycerin (Nitroglycerin (Sl Tab) 0.4 Mg) 1 tab Q5M PRN SL CHEST PAIN; Start 12/23/18 at 20:30 Acetaminophen (Tylenol Liquid) 650 mg Q6H PRN PO PAIN LEVEL 1-3 OR FEVER Last administered on 12/24/18 06:07; Admin Dose 650 MG; Start 12/23/18 at 20:30 Pantoprazole (Protonix Tab) 40 mg DAILY@06 PO Last administered on 12/31/18 06:28; Admin Dose 40 MG; Start 12/24/18 at 06:00 Apixaban (Eliquis) 5 mg BID PO Last administered on 12/31/18 09:46; Admin Dose 5 MG; Start 12/24/18 at 21:00 Amiodarone HCl (Cordarone) 100 mg DAILY PO Last administered on 12/31/18at 09:45; Admin Dose 100 MG; Start 12/24/18 at 09:30 Metoprolol Succinate (Toprol Xl) 50 mg DAILY PO Last administered on 12/31/18 09:44; Admin Dose 50 MG; Start 12/24/18 at 09:30 Prednisone (Prednisone) 3 mg DAILY PO Last administered on 12/31/18 09:45; Admin Dose 3 MG; Start 12/24/18 at 10:00 Aspirin (Aspirin) 81 mg DAILY PO Last administered on 12/31/18 09:46; Admin Dose 81 MG; Start 12/24/18 at 09:30 Tramadol HCl (Ultram) 100 mg Q12 PO Last administered on 12/31/18 09:37; Admin Dose 100 MG; Start 12/24/18 at 10:00 Gabapentin (Neurontin) 100 mg BID PO Last administered on 12/31/18 09:37; Admin Dose 100 MG; Start 12/24/18 at 10:00 Insulin Aspart (Novolog Insulin Pen) NOVOLOG *MILD* ALGORITHM WITH MEALS B EDTIME SC Last administered on 12/28/18 20:26; Admin Dose 1 UNIT; Start 12/24/18 at 11:30 Patient Own Medication 1 ea DAILY PO Last administered on 12/31/18 09:38; Admin Dose 1 EA; Start 12/24/18 at 14:00 Miscellaneous Information 1 ea NOTE XX ; Start 12/24/18 at 10:30 Glucose (Glutose) 15 gm Q15M PRN PO DECREASED GLUCOSE; Start 12/24/18 at 10:30 Glucose (Glutose) 22.5 gm Q15M PRN PO DECREASED GLUCOSE; Start 12/24/18 at 10:30 Dextrose (D50w Syringe) 25 ml Q15M PRN IV DECREASED GLUCOSE; Start 12/24/18 at 10:30 Dextrose (D50w Syringe) 50 ml Q15M PRN IV DECREASED GLUCOSE; Start 12/24/18 at 10:30 Glucagon (Glucagen) 1 mg Q15M PRN IM DECREASED GLUCOSE; Start 12/24/18 at 10:30 Glucose (Glutose) 15 gm Q15M PRN BUCCAL DECREASED GLUCOSE; Start 12/24/18 at 10:30 Polyethylene Glycol (Miralax) 17 gm DAILY PO Last administered on 12/28/18 08:15; Admin Dose 17 GM; Start 12/24/18 at 16:30 Docusate Sodium (Colace) 100 mg BID PO Last administered on 12/29/18 21:09; Admin Dose 100 MG; Start 12/24/18 at 21:00 Bisacodyl (Dulcolax Supp) 10 mg DAILY PRN [place] CONSTIPATION; Start 12/25/18 at 16:00 Leflunomide (Arava) 10 mg DAILY PO Last administered on 12/31/18 09:38; Admin Dose 10 MG; Start 12/26/18 at 09:00 Hydralazine HCl (Apresoline) 10 mg Q4H PRN IV ELEVATED SYSTOLIC BP Last administered on 12/29/18at 18:14; Admin Dose 10 MG; Start 12/26/18 at 22:00 Meclizine HCl (Antivert) 12.5 mg TID PO Last administered on 12/31/18 13:11; Admin Dose 12.5 MG; Start 12/29/18 at 13:00 Metoclopramide HCl (Reglan) 10 mg Q8 PO Last administered on 12/31/18at 13:11; Admin Dose 10 MG; Start 12/30/18 at 14:00 Clindamycin HCl/ Dextrose 50 ml @ 50 mls/hr Q8 IVPB Last administered on 12/31/18 13:14; Admin Dose 50 MLS/HR; Start 12/30/18 at 22:00 Atorvastatin Calcium (Lipitor) 20 mg HS PO ; Start 12/31/18 at 21:00 JANIS JOHN NP Dec 31, 2018 14:24
--- NOTE | 2018-12-31 15:27 | CONS ---
Consult Date/Type/Reason Admit Date/Time December 23, 2018 at 20:05 Initial Consult Date 12/24/18 Type of Consultation: cv Requesting Provider: LESLIE PERES MD Date/Time of Note DATE: 12/31/18 TIME: 15:25 Subjective Interventional cardiology follow-up progress note Subjective: Discussed with the staff and telemetry was reviewed patient remains sinus rhythm no chest pain or pressure no palpitation. NO Dizziness now no N/V Objective: General: Obese female in no acute distress HEENT: NC/AT. pupils are equal. round. NECK: NO JVD. no stridor. CV: RRR. systolic murmur; no gallop or rubs. PULM: no wheezing or rhonchi. GI: SOFT, NT, ND, no rebound or guarding Extremity: trace B/L LE edema. no clubbing. neuro: awake and alert, OX3. Psych: calm and pleasant rectal: deferred Echocardiogram has shown: Normal left ventricular systolic function. Normal left ventricular cavity size. Moderate concentric left ventricular hypertrophy. Ejection fraction is visually estimated at 60 %. Tissue Doppler/Mitral Doppler indices are consistent with impaired relaxation (Stage I diastolic dysfunction). Mitral valve leaflets appear mildly thickened. Mild mitral annular calcification. Trace mitral regurgitation. No hemodynamically significant aortic stenosis by doppler. Aortic cusps appear mildly calcified. Mild aortic valve regurgitation. Normal appearance of the tricuspid valve. Unable to obtain RVSP due to minimal presence of tricuspid regurgitation. Objective Vitals Vital Signs Date Temp Pulse Resp B/P (MAP) Pulse Ox O2 O2 Flow FiO2 Time Delivery Rate 12/31/18 98.2 68 17 122/60 98 15:18 (80) 12/31/18 Room Air 04:00 12/30/18 1.0 20:35 Intake and Output 12/30/18 12/30/18 12/31/18 1515:00 23:00 07:00 IntakeIntake Total 550 ml 370 ml OutputOutput Total 700 ml 850 ml BalanceBalance -150 ml -480 ml Results/Medications Result Diagram: 12/31/18 0614 12/31/18 0614 Results 24 hrs Laboratory Tests Test 12/30/18 17:46 12/30/18 21:44 12/31/18 06:14 12/31/18 07:55 Bedside Glucose 128 168 85 White Blood Count 8.4 Red Blood Count 3.39 L Hemoglobin 10.4 L Hematocrit 34.0 L Mean Corpuscular Volume 100.3 Mean Corpuscular 30.7 Hemoglobin Mean Corpuscular 30.6 L Hemoglobin Concent Red Cell Distribution 14.2 Width Platelet Count 248 Mean Platelet Volume 10.4 Immature Granulocytes % 1.200 H Neutrophils % 62.7 Lymphocytes % 23.9 Monocytes % 9.4 Eosinophils % 2.1 Basophils % 0.7 Nucleated Red Blood 0.0 Cells % Immature Granulocytes # 0.100 H Neutrophils # 5.3 Lymphocytes # 2.0 Monocytes # 0.8 Eosinophils # 0.2 Basophils # 0.1 Nucleated Red Blood 0.0 Cells # Sodium Level 142 Potassium Level 4.1 Chloride Level 105 Carbon Dioxide Level 32 H Anion Gap 5 Blood Urea Nitrogen 25 H Creatinine 1.70 H Glucose Level 81 Calcium Level 8.9 Phosphorus Level 4.5 Magnesium Level 2.1 Albumin 3.3 Test 12/31/18 11:45 Bedside Glucose 115 Home Meds Reported Medications Clonidine Hcl* (Clonidine Hcl*) 0.1 Mg Tab, 0.1 MG PO PRN PRN for ELEVATED BLOOD PRESSURE, TAB IF SBP GREATER THAN 160 12/24/18 Dulaglutide (Trulicity) 1.5 Mg/0.5 Ml Pen.injctr, 1.5 MG SQ EVERY Monday12/24/18 Insulin Glargine,Hum.rec.anlog (Basaglar Kwikpen U-100) 100 Unit/1 Ml Insuln.pen , 13 UNIT SC QA, EA 12/24/18 Insulin Aspart* (Novolog Insulin Pen*) 100 Unit/Ml Soln, 7 UNIT SC AC A, EA 12/24/18 Insulin Aspart* (Novolog Insulin Pen*) 100 Unit/Ml Soln, 0 SC .SLIDING SCALE AC, EA 12/24/18 Latanoprost (Xalatan) 2.5 Ml Drops, 1 DROP BOTH EYES QHS, #1 BOTTLE 12/24/18 Tofacitinib Citrate (Xeljanz Xr) 11 Mg Tab.er.24h, 11 MG PO DAILY 12/24/18 Atorvastatin Calcium* (Atorvastatin Calcium*) 20 Mg Tablet, 20 MG PO QHS, #30 TAB 12/24/18 Oxybutynin Chloride* (Ditropan* XL) 5 Mg Tabsr, 5 MG PO QHS, TAB.SA 12/24/18 Metoprolol Succinate* (Toprol XL*) 50 Mg Tab.er.24h, 50 MG PO BID, #30 TAB 12/24/18 Leflunomide* (Arava*) 10 Mg Tablet, 10 MG PO DAILY, TAB 12/24/18 Apixaban* (Eliquis*) 2.5 Mg Tablet, 2.5 MG PO BID, TAB 12/24/18 Amiodarone Hcl* (Amiodarone Hcl*) 100 Mg Tablet, 100 MG PO BID, #30 TAB 12/24/18 Gabapentin* (Gabapentin*) 100 Mg Capsule, 100 MG PO TID, #90 CAP 12/24/18 Ergocalciferol (Vitamin D2) (VITAMIN D2) 2,000 Unit Tablet, 2000 UNIT PO DAILY, TAB 12/24/18 Tramadol Hcl* (Ultram*) 50 Mg Tablet, 100 MG PO Q12 PRN for PAIN, TAB 12/24/18 Prednisone* (Prednisone*) 1 Mg Tablet, 3 MG PO DAILY, TAB 12/24/18 Medications Current Medications Ondansetron HCl (Zofran Inj) 4 mg Q6H PRN IV NAUSEA AND/OR VOMITING Last administered on 12/30/18at 05:51; Admin Dose 4 MG; Start 12/23/18 at 20:30 Albuterol/ Ipratropium (Duoneb) 3 ml Q2H RESP THERAPY PRN NEB SHORTNESS OF BREATH; Start 12/23/18 at 20:30 Nitroglycerin (Nitroglycerin (Sl Tab) 0.4 Mg) 1 tab Q5M PRN SL CHEST PAIN; Start 12/23/18 at 20:30 Acetaminophen (Tylenol Liquid) 650 mg Q6H PRN PO PAIN LEVEL 1-3 OR FEVER Last administered on 12/24/18at 06:07; Admin Dose 650 MG; Start 12/23/18 at 20:30 Pantoprazole (Protonix Tab) 40 mg DAILY@06 PO Last administered on 12/31/18at 06:28; Admin Dose 40 MG; Start 12/24/18 at 06:00 Apixaban (Eliquis) 5 mg BID PO Last administered on 12/31/18at 09:46; Admin Dose 5 MG; Start 12/24/18 at 21:00 Amiodarone HCl (Cordarone) 100 mg DAILY PO Last administered on 6/3/19at 09:45; Admin Dose 100 MG; Start 12/24/18 at 09:30 Metoprolol Succinate (Toprol Xl) 50 mg DAILY PO Last administered on 12/31/18 09:44; Admin Dose 50 MG; Start 12/24/18 at 09:30 Prednisone (Prednisone) 3 mg DAILY PO Last administered on 12/31/18 09:45; Admin Dose 3 MG; Start 12/24/18 at 10:00 Aspirin (Aspirin) 81 mg DAILY PO Last administered on 12/31/18 09:46; Admin Dose 81 MG; Start 12/24/18 at 09:30 Tramadol HCl (Ultram) 100 mg Q12 PO Last administered on 12/31/18 09:37; Admin Dose 100 MG; Start 12/24/18 at 10:00 Gabapentin (Neurontin) 100 mg BID PO Last administered on 12/31/18 09:37; Admin Dose 100 MG; Start 12/24/18 at 10:00 Insulin Aspart (Novolog Insulin Pen) NOVOLOG *MILD* ALGORITHM WITH MEALS BEDTIME SC Last administered on 12/28/18 20:26; Admin Dose 1 UNIT; Start 12/24/18 at 11:30 Patient Own Medication 1 ea DAILY PO Last administered on 12/31/18 09:38; Admin Dose 1 EA; Start 12/24/18 at 14:00 Miscellaneous Information 1 ea NOTE XX ; Start 12/24/18 at 10:30 Glucose (Glutose) 15 gm Q15M PRN PO DECREASED GLUCOSE; Start 12/24/18 at 10:30 Glucose (Glutose) 22.5 gm Q15M PRN PO DECREASED GLUCOSE; Start 12/24/18 at 10:30 Dextrose (D50w Syringe) 25 ml Q15M PRN IV DECREASED GLUCOSE; Start 12/24/18 at 10:30 Dextrose (D50w Syringe) 50 ml Q15M PRN IV DECREASED GLUCOSE; Start 12/24/18 at 10:30 Glucagon (Glucagen) 1 mg Q15M PRN IM DECREASED GLUCOSE; Start 12/24/18 at 10:30 Glucose (Glutose) 15 gm Q15M PRN BUCCAL DECREASED GLUCOSE; Start 12/24/18 at 10:30 Polyethylene Glycol (Miralax) 17 gm DAILY PO Last administered on 12/28/18at 08:15; Admin Dose 17 GM; Start 12/24/18 at 16:30 Docusate Sodium (Colace) 100 mg BID PO Last administered on 12/29/18at 21:09; Admin Dose 100 MG; Start 12/24/18 at 21:00 Bisacodyl (Dulcolax Supp) 10 mg DAILY PRN [place] CONSTIPATION; Start 12/25/18 at 16:00 Leflunomide (Arava) 10 mg DAILY PO Last administered on 12/31/18at 09:38; Admin Dose 10 MG; Start 12/26/18 at 09:00 Hydralazine HCl (Apresoline) 10 mg Q4H PRN IV ELEVATED SYSTOLIC BP Last administered on 12/29/18at 18:14; Admin Dose 10 MG; Start 12/26/18 at 22:00 Meclizine HCl (Antivert) 12.5 mg TID PO Last administered on 12/31/18at 13:11; Admin Dose 12.5 MG; Start 12/29/18 at 13:00 Metoclopramide HCl (Reglan) 10 mg Q8 PO Last administered on 12/31/18at 13:11; Admin Dose 10 MG; Start 12/30/18 at 14:00 Clindamycin HCl/ Dextrose 50 ml @ 50 mls/hr Q8 IVPB Last administered on 12/31/18 13:14; Admin Dose 50 MLS/HR; Start 12/30/18 at 22:00 Atorvastatin Calcium (Lipitor) 20 mg HS PO ; Start 12/31/18 at 21:00 Assessment/Plan Hospital Course (Demo Recall) 1. Abnormal troponin consistent with non-ST elevation myocardial infarction: Probably type II. Given her risk factors including diabetes coronary artery disease cannot be ruled out 2. S/P Sepsis 3. Acute renal failure on chronic kidney disease: improved now 4. History of diabetes 5. Morbid obesity 6. Hypertension 7. History of P-atrial fibrillation on Eliquis 8. ? vertigo Recommendations: meclizine as needed We will continue with the optimal medical therapy only at this point given her request. She has refused cardiac work-up including coronary angiography and stress testing. Aspirin will be continued. Anticoagulation for now will be continued. Antibiotic management as per internal medicine Patient was advised to follow-up with me as an outpatient and I offered her to make an appointment for her. However patient at this point refused and said that she will call herself if she wants to. thank you for this referral. EITAN EDMONDSON MD [facility] EITAN EDMONDSON MD Dec 31, 2018 15:27
[2018-12-31] MEDS: ATORVASTATIN 20 MG TAB PO SCH (20:41)
[2018-12-31] MEDS: hydrALAzine 20 MG INJ IV PRN (20:48)
[2019-01-01] VITALS (9 sets, daily range): BP systolic 108–150; BP diastolic 51–70; PULSE 59–74; RESP 18–20
[2019-01-01] MEDS: METOCLOPRAMIDE 10 MG TAB PO SCH ×3 (05:40→21:32)
[2019-01-01] MEDS: PANTOPRAZOLE (EC) 40 MG TAB PO SCH (05:40)
[2019-01-01] MEDS: CLINDAMYCIN 600 MG/D5W (PMX) 50 ML IVPB SCH ×3 (05:40→21:32)
[2019-01-01] MEDS: INSULIN ASPART [NOVOLOG] 3 ML PEN SC SCH ×4 (07:41→20:58)
[2019-01-01] MEDS: POLYETHYLENE GLYCOL 17 GM PACKET PO SCH (08:10)
[2019-01-01] MEDS: GABAPENTIN 100 MG CAP PO SCH ×2 (08:10→20:26)
[2019-01-01] MEDS: AMIODARONE 200 MG TAB PO SCH (08:10)
[2019-01-01] MEDS: MECLIZINE 12.5 MG TAB PO SCH ×3 (08:11→20:26)
[2019-01-01] MEDS: LEFLUNOMIDE 20 MG TAB PO SCH (08:11)
[2019-01-01] MEDS: DOCUSATE SODIUM 100 MG CAP PO SCH ×2 (08:11→20:25)
[2019-01-01] MEDS: ASPIRIN 81 MG TAB PO SCH (08:11)
[2019-01-01] MEDS: APIXABAN 5 MG TABLET PO SCH ×2 (08:11→20:26)
[2019-01-01] MEDS: predniSONE 1 MG TAB PO SCH (08:12)
[2019-01-01] MEDS: METOPROLOL (XL) 50 MG TAB PO SCH (08:13)
[2019-01-01] MEDS: XELJANZ 11 MG PO SCH (08:17)
[2019-01-01] MEDS: traMADol 50 MG TAB PO SCH ×2 (08:17→20:53)
--- NOTE | 2019-01-01 08:27 | CONS ---
Consult Date/Type/Reason Admit Date/Time December 23, 2018 at 20:05 Initial Consult Date 12/24/18 Type of Consultation: cv Requesting Provider: LESLIE PERES MD Date/Time of Note DATE: 01/01/19 TIME: 08:26 Subjective Interventional cardiology follow-up progress note Subjective: Discussed with the staff and telemetry was reviewed patient remains sinus rhythm no chest pain or pressure no palpitation. NO Dizziness now no N/V she is still weak Objective: General: Obese female in no acute distress HEENT: NC/AT. pupils are equal. round. NECK: NO JVD. no stridor. CV: RRR. systolic murmur; no gallop or rubs. PULM: no wheezing or rhonchi. GI: SOFT, NT, ND, no rebound or guarding Extremity: trace B/L LE edema. no clubbing. neuro: awake and alert, OX3. Psych: calm and pleasant rectal: deferred Echocardiogram has shown: Normal left ventricular systolic function. Normal left ventricular cavity size. Moderate concentric left ventricular hypertrophy. Ejection fraction is visually estimated at 60 %. Tissue Doppler/Mitral Doppler indices are consistent with impaired relaxation (Stage I diastolic dysfunction). Mitral valve leaflets appear mildly thickened. Mild mitral annular calcification. Trace mitral regurgitation. No hemodynamically significant aortic stenosis by doppler. Aortic cusps appear mildly calcified. Mild aortic valve regurgitation. Normal appearance of the tricuspid valve. Unable to obtain RVSP due to minimal presence of tricuspid regurgitation. Objective Vitals Vital Signs Date Temp Pulse Resp B/P (MAP) Pulse Ox O2 O2 Flow FiO2 Time Delivery Rate 01/01/19 65 08:11 01/01/19 98.4 20 108/51 94 Room Air 07:17 (70) 12/31/18 21 20:48 12/30/18 1.0 20:35 Intake and Output 12/31/18 12/31/18 01/01/19 1515:00 23:00 07:00 IntakeIntake Total 50 ml 1200 ml 270 ml OutputOutput Total 900 ml BalanceBalance 50 ml 300 ml 270 ml Results/Medications Result Diagram: 01/01/19 0600 01/01/19 0600 Results 24 hrs Laboratory Tests Test 12/31/18 11:45 12/31/18 17:15 12/31/18 20:44 01/01/19 06:00 Bedside Glucose 115 132 164 White Blood Count 6.9 Red Blood Count 3.22 L Hemoglobin 9.8 L Hematocrit 32.2 L Mean Corpuscular Volume 100.0 Mean Corpuscular 30.4 Hemoglobin Mean Corpuscular 30.4 L Hemoglobin Concent Red Cell Distribution 14.3 Width Platelet Count 296 Mean Platelet Volume 9.9 Immature Granulocytes % 0.700 H Neutrophils % 54.5 Lymphocytes % 31.3 Monocytes % 10.7 Eosinophils % 2.2 Basophils % 0.6 Nucleated Red Blood 0.0 Cells % Immature Granulocytes # 0.050 H Neutrophils # 3.8 Lymphocytes # 2.2 Monocytes # 0.7 Eosinophils # 0.2 Basophils # 0.0 Nucleated Red Blood 0.0 Cells # Sodium Level 143 Potassium Level 4.0 Chloride Level 107 Carbon Dioxide Level 29 Anion Gap 7 Blood Urea Nitrogen 21 H Creatinine 1.73 H Est Glomerular Filtrat 30 L Rate mL/min Glucose Level 80 Calcium Level 8.7 Phosphorus Level 4.7 Magnesium Level 2.1 Albumin 2.9 L Test 01/01/19 07:40 Bedside Glucose 80 Home Meds Reported Medications Clonidine Hcl* (Clonidine Hcl*) 0.1 Mg Tab, 0.1 MG PO PRN PRN for ELEVATED BLOOD PRESSURE, TAB IF SBP GREATER THAN 160 12/24/18 Dulaglutide (Trulicity) 1.5 Mg/0.5 Ml Pen.injctr, 1.5 MG SQ EVERY Monday12/24/18 Insulin Glargine,Hum.rec.anlog (Basaglar Kwikpen U-100) 100 Unit/1 Ml Insuln.pen, 13 UNIT SC QAM, EA 12/24/18 Insulin Aspart* (Novolog Insulin Pen*) 100 Unit/Ml Soln, 7 UNIT SC AC A, EA 12/24/18 Insulin Aspart* (Novolog Insulin Pen*) 100 Unit/Ml Soln, 0 SC .SLIDING SCALE AC, EA 12/24/18 Latanoprost (Xalatan) 2.5 Ml Drops, 1 DROP BOTH EYES QHS, #1 BOTTLE 12/24/18 Tofacitinib Citrate (Xeljanz Xr) 11 Mg Tab.er.24h, 11 MG PO DAILY 12/24/18 Atorvastatin Calcium* (Atorvastatin Calcium*) 20 Mg Tablet, 20 MG PO QHS, #30 TAB 12/24/18 Oxybutynin Chloride* (Ditropan* XL) 5 Mg Tabsr, 5 MG PO QHS, TAB.SA 12/24/18 Metoprolol Succinate* (Toprol XL*) 50 Mg Tab.er.24h, 50 MG PO BID, #30 TAB 12/24/18 Leflunomide* (Arava*) 10 Mg Tablet, 10 MG PO DAILY, TAB 12/24/18 Apixaban* (Eliquis*) 2.5 Mg Tablet, 2.5 MG PO BID, TAB 12/24/18 Amiodarone Hcl* (Amiodarone Hcl*) 100 Mg Tablet, 100 MG PO BID, #30 TAB 12/24/18 Gabapentin* (Gabapentin*) 100 Mg Capsule, 100 MG PO TID, #90 CAP 12/24/18 Ergocalciferol (Vitamin D2) (VITAMIN D2) 2,000 Unit Tablet, 2000 UNIT PO DAILY, TAB 12/24/18 Tramadol Hcl* (Ultram*) 50 Mg Tablet, 100 MG PO Q12 PRN for PAIN, TAB 12/24/18 Prednisone* (Prednisone*) 1 Mg Tablet, 3 MG PO DAILY, TAB 12/24/18 Medications Current Medications Ondansetron HCl (Zofran Inj) 4 mg Q6H PRN IV NAUSEA AND/OR VOMITING Last administered on 12/30/18at 05:51; Admin Dose 4 MG; Start 12/23/18 at 20:30 Albuterol/ Ipratropium (Duoneb) 3 ml Q2H RESP THERAPY PRN NEB SHORTNESS OF BREATH; Start 12/23/18 at 20:30 Nitroglycerin (Nitroglycerin (Sl Tab) 0.4 Mg) 1 tab Q5M PRN SL CHEST PAIN; Start 12/23/18 at 20:30 Acetaminophen (Tylenol Liquid) 650 mg Q6H PRN PO PAIN LEVEL 1-3 OR FEVER Last administered on 12/24/18at 06:07; Admin Dose 650 MG; Start 12/23/18 at 20:30 Pantoprazole (Protonix Tab) 40 mg DAILY@06 PO Last administered on 01/01/19at 05:40; Admin Dose 40 MG; Start 12/24/18 at 06:00 Apixaban (Eliquis) 5 mg BID PO Last administered on 01/01/19at 08:11; Admin Dose 5 MG; Start 12/24/18 at 21:00 Amiodarone HCl (Cordarone) 100 mg DAILY PO Last administered on 01/01/19 08:10; Admin Dose 100 MG; Start 12/24/18 at 09:30 Metoprolol Succinate (Toprol Xl) 50 mg DAILY PO Last administered on 01/01/19 08:13; Admin Dose 50 MG; Start 12/24/18 at 09:30 Prednisone (Prednisone) 3 mg DAILY PO Last administered on 01/01/19 08:12; Admin Dose 3 MG; Start 12/24/18 at 10:00 Aspirin (Aspirin) 81 mg DAILY PO Last administered on 01/01/19 08:11; Admin Dose 81 MG; Start 12/24/18 at 09:30 Tramadol HCl (Ultram) 100 mg Q12 PO Last administered on 01/01/19 08:17; Admin Dose 100 MG; Start 12/24/18 at 10:00 Gabapentin (Neurontin) 100 mg BID PO Last administered on 01/01/19 08:10; Admin Dose 100 MG; Start 12/24/18 at 10:00 Insulin Aspart (Novolog Insulin Pen) NOVOLOG *MILD* ALGORITHM WITH MEALS BEDTIME SC Last administered on 12/28/18 20:26; Admin Dose 1 UNIT; Start 12/24/18 at 11:30 Patient Own Medication 1 ea DAILY PO Last administered on 01/01/19 08:17; Admin Dose 1 EA; Start 12/24/18 at 14:00 Miscellaneous Information 1 ea NOTE XX ; Start 12/24/18 at 10:30 Glucose (Glutose) 15 gm Q15M PRN PO DECREASED GLUCOSE; Start 12/24/18 at 10:30 Glucose (Glutose) 22.5 gm Q15M PRN PO DECREASED GLUCOSE; Start 12/24/18 at 10:30 Dextrose (D50w Syringe) 25 ml Q15M PRN IV DECREASED GLUCOSE; Start 12/24/18 at 10:30 Dextrose (D50w Syringe) 50 ml Q15M PRN IV DECREASED GLUCOSE; Start 12/24/18 at 10:30 Glucagon (Glucagen) 1 mg Q15M PRN IM DECREASED GLUCOSE; Start 12/24/18 at 10:30 Glucose (Glutose) 15 gm Q15M PRN BUCCAL DECREASED GLUCOSE; Start 12/24/18 at 10:30 Polyethylene Glycol (Miralax) 17 gm DAILY PO Last administered on 01/01/19 08:10; Admin Dose 17 GM; Start 12/24/18 at 16:30 Docusate Sodium (Colace) 100 mg BID PO Last administered on 01/01/19 08:11; Admin Dose 100 MG; Start 12/24/18 at 21:00 Bisacodyl (Dulcolax Supp) 10 mg DAILY PRN [place] CONSTIPATION; Start 12/25/18 at 16:00 Leflunomide (Arava) 10 mg DAILY PO Last administered on 01/01/19 08:11; Admin Dose 10 MG; Start 12/26/18 at 09:00 Hydralazine HCl (Apresoline) 10 mg Q4H PRN IV ELEVATED SYSTOLIC BP Last administered on 12/31/18 20:48; Admin Dose 10 MG; Start 12/26/18 at 22:00 Meclizine HCl (Antivert) 12.5 mg TID PO Last administered on 01/01/19 08:11; Admin Dose 12.5 MG; Start 12/29/18 at 13:00 Metoclopramide HCl (Reglan) 10 mg Q8 PO Last administered on 01/01/19 05:40; A dmin Dose 10 MG; Start 12/30/18 at 14:00 Clindamycin HCl/ Dextrose 50 ml @ 50 mls/hr Q8 IVPB Last administered on 01/01/19 05:40; Admin Dose 50 MLS/HR; Start 12/30/18 at 22:00 Atorvastatin Calcium (Lipitor) 20 mg HS PO Last administered on 12/31/18at 20:41; Admin Dose 20 MG; Start 12/31/18 at 21:00 Assessment/Plan Hospital Course (Demo Recall) 1. Abnormal troponin consistent with non-ST elevation myocardial infarction: Probably type II. Given her risk factors including diabetes coronary artery disease cannot be ruled out 2. S/P Sepsis 3. Acute renal failure on chronic kidney disease: improved now 4. History of diabetes 5. Morbid obesity 6. Hypertension 7. History of P-atrial fibrillation on Eliquis 8. ? vertigo Recommendations: We will continue with the optimal medical therapy only at this point given her request. She has refused cardiac work-up including coronary angiography and stress testing. Aspirin will be continued. Anticoagulation for now will be continued. Antibiotic management as per internal medicine . on IV abx now PT as tolerated f/u renal fx and renal consult rec thank you for this referral. EITAN EDMONDSON MD [facility] EITAN EDMONDSON MD Jan 01, 2019 08:27
--- NOTE | 2019-01-01 09:48 | PN ---
DATE: 01/01/2019 SUBJECTIVE: The patient is stable. No events overnight. OBJECTIVE: VITAL SIGNS: Blood pressure is 108/51, pulse 65, temperature 98.4. HEENT: Head is normocephalic. NECK: Supple. HEART: Regular rate. LUNGS: Show diminished breath sounds at the base. ABDOMEN: Soft, nontender to palpation without rebound or guarding. EXTREMITIES: Negative for clubbing, cyanosis, no edema. DERMATOLOGIC: No rashes. MUSCULOSKELETAL: No joint effusion. NEUROLOGIC: No change in exam. MEDICATIONS: The patient's medications have been reviewed. LABORATORY DATA: Reviewed. IMAGING STUDIES: Reviewed. ASSESSMENT AND PLAN: 1. Nonoliguric acute kidney injury on top of chronic kidney disease with unknown baseline creatinine . Etiology of acute kidney injury is multifactorial secondary to sepsis, hemodynamics. The patient' s renal function has been fluctuating during hospital course, appears to be stabilizing around a crea tinine of 1.7 mg/dL. At this point, continue current treatment plan, supportive care, renally dose a ll medications. We would continue to hold diuretic therapy as the patient appears euvolemic on exam. Also, agree with discontinuing vancomycin. Continue supportive care, renally dose all medications. 2. Anemia. Monitor hemoglobin and hematocrit levels. 3. Mineral bone disorder. Monitor calcium and phosphorus levels. 4. Hypertension. Continue current blood pressure regimen. 5. Acute on chronic diastolic heart failure. The patient appears euvolemic on exam. Holding diuret ic therapy. 6. Non-ST elevation myocardial infarction. Continue medical management. 7. Diabetes. Continue current insulin regimen. 8. Atrial fibrillation, continue current treatment plan. 9. Sepsis secondary to pneumonia. Continue current antibiotic regimen. Continue nebulizers. 10. History of rheumatoid arthritis. Dictated By: AVE SOFIA DO NR/NTS Conf#: [id number] DID#: [id number] CC: WILLIE GLEASON MD; ADRIAN GORDON MD; DONG MARLEY MD;*EndCC*
--- NOTE | 2019-01-01 14:02 | PN ---
Date/Time of Note Date/Time of Note DATE: 01/01/19 TIME: 14:01 Objective Vitals Vital Signs Date Temp Pulse Resp B/P (MAP) Pulse Ox O2 O2 Flow FiO2 Time Delivery Rate 01/01/19 65 12:48 01/01/19 98.2 20 122/60 95 Room Air 11:17 (80) 12/31/18 21 20:48 12/30/18 1.0 20:35 Intake and Output 12/31/18 12/31/18 01/01/19 1515:00 23:00 07:00 IntakeIntake Total 50 ml 1200 ml 270 ml OutputOutput Total 900 ml BalanceBalance 50 ml 300 ml 270 ml Results Result Diagram: 01/01/19 0600 01/01/19 0600 Medications Medications Current Medications Ondansetron HCl (Zofran Inj) 4 mg Q6H PRN IV NAUSEA AND/OR VOMITING Last administered on 12/30/18 05:51; Admin Dose 4 MG; Start 12/23/18 at 20:30 Albuterol/ Ipratropium (Duoneb) 3 ml Q2H RESP THERAPY PRN NEB SHORTNESS OF BREATH; Start 12/23/18 at 20:30 Nitroglycerin (Nitroglycerin (Sl Tab) 0.4 Mg) 1 tab Q5M PRN SL CHEST PAIN; Start 12/23/18 at 20:30 Acetaminophen (Tylenol Liquid) 650 mg Q6H PRN PO PAIN LEVEL 1-3 OR FEVER Last administered on 12/24/18 06:07; Admin Dose 650 MG; Start 12/23/18 at 20:30 Pantoprazole (Protonix Tab) 40 mg DAILY@06 PO Last administered on 01/01/19at 05:40; Admin Dose 40 MG; Start 12/24/18 at 06:00 Apixaban (Eliquis) 5 mg BID PO Last administered on 01/01/19 08:11; Admin Dose 5 MG; Start 12/24/18 at 21:00 Amiodarone HCl (Cordarone) 100 mg DAILY PO Last administered on 01/01/19at 08:10; Admin Dose 100 MG; Start 12/24/18 at 09:30 Metoprolol Succinate (Toprol Xl) 50 mg DAILY PO Last administered on 01/01/19at 08:13; Admin Dose 50 MG; Start 12/24/18 at 09:30 Prednisone (Prednisone) 3 mg DAILY PO Last administered on 01/01/19 08:12; Admin Dose 3 MG; Start 12/24/18 at 10:00 Aspirin (Aspirin) 81 mg DAILY PO Last administered on 01/01/19 08:11; Admin Dose 81 MG; Start 12/24/18 at 09:30 Tramadol HCl (Ultram) 100 mg Q12 PO Last administered on 01/01/19 08:17; Admin Dose 100 MG; Start 12/24/18 at 10:00 Gabapentin (Neurontin) 100 mg BID PO Last administered on 01/01/19 08:10; Admin Dose 100 MG; Start 12/24/18 at 10:00 Insulin Aspart (Novolog Insulin Pen) NOVOLOG *MILD* ALGORITHM WITH MEALS BEDTIME SC Last administered on 12/28/18 20:26; Admin Dose 1 UNIT; Start 12/24/18 at 11:30 Patient Own Medication 1 ea DAILY PO Last administered on 01/01/19 08:17; Admin Dose 1 EA; Start 12/24/18 at 14:00 Miscellaneous Information 1 ea NOTE XX ; Start 12/24/18 at 10:30 Glucose (Glutose) 15 gm Q15M PRN PO DECREASED GLUCOSE; Start 12/24/18 at 10:30 Glucose (Glutose) 22.5 gm Q15M PRN PO DECREASED GLUCOSE; Start 12/24/18 at 10:30 Dextrose (D50w Syringe) 25 ml Q15M PRN IV DECREASED GLUCOSE; Start 12/24/18 at 10:30 Dextrose (D50w Syringe) 50 ml Q15M PRN IV DECREASED GLUCOSE; Start 12/24/18 at 10:30 Glucagon (Glucagen) 1 mg Q15M PRN IM DECREASED GLUCOSE; Start 12/24/18 at 10:30 Glucose (Glutose) 15 gm Q15M PRN BUCCAL DECREASED GLUCOSE; Start 12/24/18 at 10:30 Polyethylene Glycol (Miralax) 17 gm DAILY PO Last administered on 01/01/19 08:10; Admin Dose 17 GM; Start 12/24/18 at 16:30 Docusate Sodium (Colace) 100 mg BID PO Last administered on 01/01/19 08:11; Admin Dose 100 MG; Start 12/24/18 at 21:00 Bisacodyl (Dulcolax Supp) 10 mg DAILY PRN [place] CONSTIPATION; Start 12/25/18 at 16:00 Leflunomide (Arava) 10 mg DAILY PO Last administered on 01/01/19 08:11; Admin Dose 10 MG; Start 12/26/18 at 09:00 Hydralazine HCl (Apresoline) 10 mg Q4H PRN IV ELEVATED SYSTOLIC BP Last administered on 12/31/18 20:48; Admin Dose 10 MG; Start 12/26/18 at 22:00 Meclizine HCl (Antivert) 12.5 mg TID PO Last administered on 01/01/19 12:17; Admin Dose 12.5 MG; Start 12/29/18 at 13:00 Metoclopramide HCl (Reglan) 10 mg Q8 PO Last administered on 01/01/19 13:22; Admin Dose 10 MG; Start 12/30/18 at 14:00 Clindamycin HCl/ Dextrose 50 ml @ 50 mls/hr Q8 IVPB Last administered on 01/01/19 13:23; Admin Dose 50 MLS/HR; Start 12/30/18 at 22:00 Atorvastatin Calcium (Lipitor) 20 mg HS PO Last administered on 12/31/18 20:41; Admin Dose 20 MG; Start 12/31/18 at 21:00 VTE Prophylaxis Risk score (from Ns)>0 risk: 7 SCD applied (from Ns): Yes Lines/Catheters IV Catheter Type: Ricardo in Place: No Assessment/Plan Hospital Course Subjective Minimal chronic dizziness, no chest pain, patient overall feels just mildly weak Objective Physical exam General: Patient is laying in bed and answers questions appropriately Mentation: Patient is alert and oriented 4, Head: Normocephalic atraumatic Eyes: EOMI, pupils reactive to light Neck: Supple, nontender, midline Respiratory: Clear to auscultation bilaterally Cardiovascular: regular rate, no obvious murmurs Gastrointestinal: non-tender to palpation, bowel sounds heard. Neurological: Moves all extremities spontaneously Skin: No new skin lesions Assessment/Plan 1. NSTEMI, most likely demand type 2 - remains asymptomatic, patient refused stress test. - Cardiology consultation appreciated and will need to follow up as outpatient 2. BPPV - Meclizine around the clock for relief 3. Acute on chronic heart failure- stable - ECHO results noted with preserved EF - BNP elevated 4. Diabetes Mellitus- resolved - A1c noted - ISS and accuchecks 5. Hypertensive urgency - resolved 6. History of A-fib - rate controlled - continue Eliquis 7. Rheumatoid arthritis - continue home medications 8. KASSIDY - Nephrology consultation appreciated. - may be cardiorenal vs ATN from sepsis - avoid nephrotoxic agents 9. MRSA bacteremia - ID consulted and appreciate recommendations. Will need 2 weeks total of IV antibiotics. - isolation not needed - repeat cx negative 10. Disposition - Renal function still elevated and will need improvement prior to clearance for rehab ADRIAN GORDON Jan 01, 2019 14:02
--- NOTE | 2019-01-01 15:15 | CONS ---
Assessment/Plan Assessment/Plan Hospital Course (Demo Recall) 1315 Alert, feels good Microbiology: Blood culture on admission grew MRSA, urine culture grew Viki albicans, repeat blood cultures negative. Chest x-ray on admission revealed bilateral perihilar and lower lobe hazy opacification suggestive of interstitial pulmonary edema, less likely pneumonia Antimicrobials: Clindamycin Indwelling: Ricardo catheter Physical examination: Morbidly obese well-developed elderly woman who is awake in no distress. Head atraumatic normocephalic sclera nonicteric. Neck is obese. Chest rise symmetrical, breath sounds diminished bases. Heart: S1-S2. Abdomen soft bowel sounds present. Extremities without cyanosis. Assessment: 1. Sepsis, present on admission 2. MRSA bacteremia? etiology. No vegetations per 2D echo 3. Rheumatoid arthritis 4. Morbid obesity 5. Possible pneumonia 6. NSTEMI/CHF exacerbation 7. Diabetes 8. Acute kidney injury Plan: Stable, continue abx==> last dose 01/08 Consultation Date/Type/Reason Admit Date/Time December 23, 2018 at 20:05 Initial Consult Date 12/24/18 Type of Consult id Requesting Provider: LESLIE PERES MD Date/Time of Note DATE: 01/01/19 TIME: 15:14 Exam/Review of Systems Exam Vitals Vital Signs Date Temp Pulse Resp B/P (MAP) Pulse Ox O2 O2 Flow FiO2 Time Delivery Rate 01/01/19 65 12:48 01/01/19 98.2 20 122/60 95 Room Air 11:17 (80) 12/31/18 21 20:48 12/30/18 1.0 20:35 Intake and Output 12/31/18 12/31/18 01/01/19 1515:00 23:00 07:00 IntakeIntake Total 50 ml 1200 ml 270 ml OutputOutput Total 900 ml BalanceBalance 50 ml 300 ml 270 ml Results Result Diagram: 01/01/19 0600 01/01/19 0600 Results 24hrs Laboratory Tests Test 12/31/18 17:15 12/31/18 20:44 01/01/19 06:00 01/01/19 07:40 Bedside Glucose 132 164 80 White Blood Count 6.9 Red Blood Count 3.22 L Hemoglobin 9.8 L Hematocrit 32.2 L Mean Corpuscular Volume 100.0 Mean Corpuscular 30.4 Hemoglobin Mean Corpuscular 30.4 L Hemoglobin Concent Red Cell Distribution 14.3 Width Platelet Count 296 Mean Platelet Volume 9.9 Immature Granulocytes % 0.700 H Neutrophils % 54.5 Lymphocytes % 31.3 Monocytes % 10.7 Eosinophils % 2.2 Basophils % 0.6 Nucleated Red Blood 0.0 Cells % Immature Granulocytes # 0.050 H Neutrophils # 3.8 Lymphocytes # 2.2 Monocytes # 0.7 Eosinophils # 0.2 Basophils # 0.0 Nucleated Red Blood 0.0 Cells # Sodium Level 143 Potassium Level 4.0 Chloride Level 107 Carbon Dioxide Level 29 Anion Gap 7 Blood Urea Nitrogen 21 H Creatinine 1.73 H Est Glomerular Filtrat 30 L Rate mL/min Glucose Level 80 Calcium Level 8.7 Phosphorus Level 4.7 Magnesium Level 2.1 Albumin 2.9 L Test 01/01/19 11:39 Bedside Glucose 117 Medications Medication Current Medications Ondansetron HCl (Zofran Inj) 4 mg Q6H PRN IV NAUSEA AND/OR VOMITING Last administered on 12/30/18 05:51; Admin Dose 4 MG; Start 12/23/18 at 20:30 Albuterol/ Ipratropium (Duoneb) 3 ml Q2H RESP THERAPY PRN NEB SHORTNESS OF BREATH; Start 12/23/18 at 20:30 Nitroglycerin (Nitroglycerin (Sl Tab) 0.4 Mg) 1 tab Q5M PRN SL CHEST PAIN; Start 12/23/18 at 20:30 Acetaminophen (Tylenol Liquid) 650 mg Q6H PRN PO PAIN LEVEL 1-3 OR FEVER Last administered on 12/24/18 06:07; Admin Dose 650 MG; Start 12/23/18 at 20:30 Pantoprazole (Protonix Tab) 40 mg DAILY@06 PO Last administered on 01/01/19 05:40; Admin Dose 40 MG; Start 12/24/18 at 06:00 Apixaban (Eliquis) 5 mg BID PO Last administered on 01/01/19 08:11; Admin Dose 5 MG; Start 12/24/18 at 21:00 Amiodarone HCl (Cordarone) 100 mg DAILY PO Last administered on 01/01/19 08:10; Admin Dose 100 MG; Start 12/24/18 at 09:30 Metoprolol Succinate (Toprol Xl) 50 mg DAILY PO Last administered on 01/01/19 08:13; Admin Dose 50 MG; Start 12/24/18 at 09:30 Prednisone (Prednisone) 3 mg DAILY PO Last administered on 01/01/19 08:12; Admin Dose 3 MG; Start 12/24/18 at 10:00 Aspirin (Aspirin) 81 mg DAILY PO Last administered on 01/01/19 08:11; Admin Dose 81 MG; Start 12/24/18 at 09:30 Tramadol HCl (Ultram) 100 mg Q12 PO Last administered on 01/01/19 08:17; Admin Dose 100 MG; Start 12/24/18 at 10:00 Gabapentin (Neurontin) 100 mg BID PO Last administered on 01/01/19 08:10; Admin Dose 100 MG; Start 12/24/18 at 10:00 Insulin Aspart (Novolog Insulin Pen) NOVOLOG *MILD* ALGORITHM WITH MEALS BEDTIME SC Last administered on 12/28/18 20:26; Admin Dose 1 UNIT; Start 12/24/18 at 11:30 Patient Own Medication 1 ea DAILY PO Last administered on 01/01/19 08:17; Admin Dose 1 EA; Start 12/24/18 at 14:00 Miscellaneous Information 1 ea NOTE XX ; Start 12/24/18 at 10:30 Glucose (Glutose) 15 gm Q15M PRN PO DECREASED GLUCOSE; Start 12/24/18 at 10:30 Glucose (Glutose) 22.5 gm Q15M PRN PO DECREASED GLUCOSE; Start 12/24/18 at 10:30 Dextrose (D50w Syringe) 25 ml Q15M PRN IV DECREASED GLUCOSE; Start 12/24/18 at 10:30 Dextrose (D50w Syringe) 50 ml Q15M PRN IV DECREASED GLUCOSE; Start 12/24/18 at 10:30 Glucagon (Glucagen) 1 mg Q15M PRN IM DECREASED GLUCOSE; Start 12/24/18 at 10:30 Glucose (Glutose) 15 gm Q15M PRN BUCCAL DECREASED GLUCOSE; Start 12/24/18 at 10:30 Polyethylene Glycol (Miralax) 17 gm DAILY PO Last administered on 01/01/19 08:10; Admin Dose 17 GM; Start 12/24/18 at 16:30 Docusate Sodium (Colace) 100 mg BID PO Last administered on 01/01/19 08:11; Admin Dose 100 MG; Start 12/24/18 at 21:00 Bisacodyl (Dulcolax Supp) 10 mg DAILY PRN [place] CONSTIPATION; Start 12/25/18 at 16:00 Leflunomide (Arava) 10 mg DAILY PO Last administered on 01/01/19 08:11; Admin Dose 10 MG; Start 12/26/18 at 09:00 Hydralazine HCl (Apresoline) 10 mg Q4H PRN IV ELEVATED SYSTOLIC BP Last administered on 12/31/18at 20:48; Admin Dose 10 MG; Start 12/26/18 at 22:00 Meclizine HCl (Antivert) 12.5 mg TID PO Last administered on 01/01/19 12:17; Admin Dose 12.5 MG; Start 12/29/18 at 13:00 Metoclopramide HCl (Reglan) 10 mg Q8 PO Last administered on 01/01/19 13:22; Admin Dose 10 MG; Start 12/30/18 at 14:00 Clindamycin HCl/ Dextrose 50 ml @ 50 mls/hr Q8 IVPB Last administered on 01/01/19 13:23; Admin Dose 50 MLS/HR; Start 12/30/18 at 22:00 Atorvastatin Calcium (Lipitor) 20 mg HS PO Last administered on 12/31/18 20:41; Admin Dose 20 MG; Start 12/31/18 at 21:00 JANIS JOHN NP Jan 01, 2019 15:15
[2019-01-01] MEDS: ATORVASTATIN 20 MG TAB PO SCH (20:26)
[2019-01-02] VITALS: BP 152/67; PULSE 61; PULSE 86; RESP 20
[2019-01-02 04:00] VITALS: BP 162/75; PULSE 59; PULSE 63; RESP 20
[2019-01-02] MEDS: METOCLOPRAMIDE 10 MG TAB PO SCH ×2 (06:29→14:45)
[2019-01-02] MEDS: CLINDAMYCIN 600 MG/D5W (PMX) 50 ML IVPB SCH ×2 (06:29→14:45)
[2019-01-02] MEDS: PANTOPRAZOLE (EC) 40 MG TAB PO SCH (06:29)
[2019-01-02 07:15] VITALS: BP 135/58; PULSE 61; RESP 20
[2019-01-02] MEDS: INSULIN ASPART [NOVOLOG] 3 ML PEN SC SCH ×2 (07:55→11:50)
[2019-01-02] MEDS: APIXABAN 5 MG TABLET PO SCH (08:21)
[2019-01-02] MEDS: POLYETHYLENE GLYCOL 17 GM PACKET PO SCH (08:21)
[2019-01-02] MEDS: ASPIRIN 81 MG TAB PO SCH (08:21)
[2019-01-02] MEDS: DOCUSATE SODIUM 100 MG CAP PO SCH (08:21)
[2019-01-02] MEDS: predniSONE 1 MG TAB PO SCH (08:22)
[2019-01-02] MEDS: AMIODARONE 200 MG TAB PO SCH (08:22)
[2019-01-02] MEDS: MECLIZINE 12.5 MG TAB PO SCH ×2 (08:23→14:45)
[2019-01-02] MEDS: LEFLUNOMIDE 20 MG TAB PO SCH (08:23)
[2019-01-02] MEDS: METOPROLOL (XL) 50 MG TAB PO SCH (08:23)
[2019-01-02] MEDS: GABAPENTIN 100 MG CAP PO SCH (08:24)
[2019-01-02] MEDS: XELJANZ 11 MG PO SCH (08:24)
[2019-01-02 08:27] VITALS: PULSE 57
[2019-01-02] MEDS: traMADol 50 MG TAB PO SCH (08:28)
--- NOTE | 2019-01-02 09:25 | CONS ---
Consult Date/Type/Reason Admit Date/Time December 23, 2018 at 20:05 Initial Consult Date 12/24/18 Type of Consultation: cv Requesting Provider: LESLIE PERES MD Date/Time of Note DATE: 01/02/19 TIME: 09:23 Subjective Interventional cardiology follow-up progress note Subjective: Discussed with the staff and telemetry was reviewed patient remains sinus rhythm no chest pain or pressure no palpitation. NO Dizziness now no N/V she still does not want to have any cardiac work up Objective: General: Obese female in no acute distress HEENT: NC/AT. pupils are equal. round. NECK: NO JVD. no stridor. CV: RRR. systolic murmur; no gallop or rubs. PULM: no wheezing or rhonchi. GI: SOFT, NT, ND, no rebound or guarding Extremity: trace B/L LE edema. no clubbing. neuro: awake and alert, OX3. Psych: calm and pleasant rectal: deferred Echocardiogram has shown: Normal left ventricular systolic function. Normal left ventricular cavity size. Moderate concentric left ventricular hypertrophy. Ejection fraction is visually estimated at 60 %. Tissue Doppler/Mitral Doppler indices are consistent with impaired relaxation (Stage I diastolic dysfunction). Mitral valve leaflets appear mildly thickened. Mild mitral annular calcification. Trace mitral regurgitation. No hemodynamically significant aortic stenosis by doppler. Aortic cusps appear mildly calcified. Mild aortic valve regurgitation. Normal appearance of the tricuspid valve. Unable to obtain RVSP due to minimal presence of tricuspid regurgitation. Objective Vitals Vital Signs Date Temp Pulse Resp B/P (MAP) Pulse Ox O2 O2 Flow FiO2 Time Delivery Rate 01/02/19 57 08:27 01/02/19 98.5 20 135/58 94 Room Air 07:15 (83) 12/31/18 21 20:48 12/30/18 1.0 20:35 Intake and Output 01/01/19 01/01/19 01/02/19 1515:00 23:00 07:00 IntakeIntake Total 960 ml 300 ml OutputOutput Total 250 ml 3 ml BalanceBalance 710 ml 297 ml Results/Medications Result Diagram: 01/02/19 0603 01/02/19 0603 Results 24 hrs Laboratory Tests Test 01/01/19 11:39 01/01/19 17:34 01/01/19 20:57 01/02/19 06:03 Bedside Glucose 117 121 172 White Blood Count 6.7 Red Blood Count 3.13 L Hemoglobin 9.6 L Hematocrit 31.4 L Mean Corpuscular Volume 100.3 Mean Corpuscular 30.7 Hemoglobin Mean Corpuscular 30.6 L Hemoglobin Concent Red Cell Distribution 14.0 Width Platelet Count 296 Mean Platelet Volume 9.5 Immature Granulocytes % 0.800 H Neutrophils % 57.5 Lymphocytes % 28.1 Monocytes % 10.5 Eosinophils % 2.3 Basophils % 0.8 Nucleated Red Blood 0.0 Cells % Immature Granulocytes # 0.050 H Neutrophils # 3.8 Lymphocytes # 1.9 Monocytes # 0.7 Eosinophils # 0.2 Basophils # 0.1 Nucleated Red Blood 0.0 Cells # Sodium Level 142 Potassium Level 3.9 Chloride Level 107 Carbon Dioxide Level 31 Anion Gap 4 L Blood Urea Nitrogen 20 Creatinine 1.68 H Est Glomerular Filtrat 31 L Rate mL/min Glucose Level 79 Calcium Level 8.6 Phosphorus Level 4.7 Magnesium Level 2.1 Test 01/02/19 08:09 Bedside Glucose 85 Home Meds Reported Medications Clonidine Hcl* (Clonidine Hcl*) 0.1 Mg Tab, 0.1 MG PO PRN PRN for ELEVATED BLOOD PRESSURE, TAB IF SBP GREATER THAN 160 12/24/18 Dulaglutide (Trulicity) 1.5 Mg/0.5 Ml Pen.injctr, 1.5 MG SQ EVERY Monday12/24/18 Insulin Glargine,Hum.rec.anlog (Basaglar Kwikpen U-100) 100 Unit/1 Ml Insuln.pen, 13 UNIT SC QAM, EA 12/24/18 Insulin Aspart* (Novolog Insulin Pen*) 100 Unit/Ml Soln, 7 UNIT SC AC A, EA 12/24/18 Insulin Aspart* (Novolog Insulin Pen*) 100 Unit/Ml Soln, 0 SC .SLIDING SCALE AC, EA 12/24/18 Latanoprost (Xalatan) 2.5 Ml Drops, 1 DROP BOTH EYES QHS, #1 BOTTLE 12/24/18 Tofacitinib Citrate (Xeljanz Xr) 11 Mg Tab.er.24h, 11 MG PO DAILY 12/24/18 Atorvastatin Calcium* (Atorvastatin Calcium*) 20 Mg Tablet, 20 MG PO QHS, #30 TAB 12/24/18 Oxybutynin Chloride* (Ditropan* XL) 5 Mg Tabsr, 5 MG PO QHS, TAB.SA 12/24/18 Metoprolol Succinate* (Toprol XL*) 50 Mg Tab.er.24h, 50 MG PO BID, #30 TAB 12/24/18 Leflunomide* (Arava*) 10 Mg Tablet, 10 MG PO DAILY, TAB 12/24/18 Apixaban* (Eliquis*) 2.5 Mg Tablet, 2.5 MG PO BID, TAB 12/24/18 Amiodarone Hcl* (Amiodarone Hcl*) 100 Mg Tablet, 100 MG PO BID, #30 TAB 12/24/18 Gabapentin* (Gabapentin*) 100 Mg Capsule, 100 MG PO TID, #90 CAP 12/24/18 Ergocalciferol (Vitamin D2) (VITAMIN D2) 2,000 Unit Tablet, 2000 UNIT PO DAILY, TAB 12/24/18 Tramadol Hcl* (Ultram*) 50 Mg Tablet, 100 MG PO Q12 PRN for PAIN, TAB 12/24/18 Prednisone* (Prednisone*) 1 Mg Tablet, 3 MG PO DAILY, TAB 12/24/18 Medications Current Medications Ondansetron HCl (Zofran Inj) 4 mg Q6H PRN IV NAUSEA AND/OR VOMITING Last administered on 12/30/18at 05:51; Admin Dose 4 MG; Start 12/23/18 at 20:30 Albuterol/ Ipratropium (Duoneb) 3 ml Q2H RESP THERAPY PRN NEB SHORTNESS OF BREATH; Start 12/23/18 at 20:30 Nitroglycerin (Nitroglycerin (Sl Tab) 0.4 Mg) 1 tab Q5M PRN SL CHEST PAIN; Start 12/23/18 at 20:30 Acetaminophen (Tylenol Liquid) 650 mg Q6H PRN PO PAIN LEVEL 1-3 OR FEVER Last administered on 12/24/18at 06:07; Admin Dose 650 MG; Start 12/23/18 at 20:30 Pantoprazole (Protonix Tab) 40 mg DAILY@06 PO Last administered on 01/02/19at 06:29; Admin Dose 40 MG; Start 12/24/18 at 06:00 Apixaban (Eliquis) 5 mg BID PO Last administered on 01/02/19at 08:21; Admin Dose 5 MG; Start 12/24/18 at 21:00 Amiodarone HCl (Cordarone) 100 mg DAILY PO Last administered on 01/02/19 08:22; Admin Dose 100 MG; Start 12/24/18 at 09:30 Metoprolol Succinate (Toprol Xl) 50 mg DAILY PO Last administered on 01/02/19 08:23; Admin Dose 50 MG; Start 12/24/18 at 09:30 Prednisone (Prednisone) 3 mg DAILY PO Last administered on 01/02/19 08:22; Admin Dose 3 MG; Start 12/24/18 at 10:00 Aspirin (Aspirin) 81 mg DAILY PO Last administered on 01/02/19 08:21; Admin Dose 81 MG; Start 12/24/18 at 09:30 Tramadol HCl (Ultram) 100 mg Q12 PO Last administered on 01/02/19 08:28; Admin Dose 100 MG; Start 12/24/18 at 10:00 Gabapentin (Neurontin) 100 mg BID PO Last administered on 01/02/19 08:24; Admin Dose 100 MG; Start 12/24/18 at 10:00 Insulin Aspart (Novolog Insulin Pen) NOVOLOG *MILD* ALGORITHM WITH MEALS BEDTIME SC Last administered on 12/28/18 20:26; Admin Dose 1 UNIT; Start 12/24/18 at 11:30 Patient Own Medication 1 ea DAILY PO Last administered on 01/02/19 08:24; Admin Dose 1 EA; Start 12/24/18 at 14:00 Miscellaneous Information 1 ea NOTE XX ; Start 12/24/18 at 10:30 Glucose (Glutose) 15 gm Q15M PRN PO DECREASED GLUCOSE; Start 12/24/18 at 10:30 Glucose (Glutose) 22.5 gm Q15M PRN PO DECREASED GLUCOSE; Start 12/24/18 at 10:30 Dextrose (D50w Syringe) 25 ml Q15M PRN IV DECREASED GLUCOSE; Start 12/24/18 at 10:30 Dextrose (D50w Syringe) 50 ml Q15M PRN IV DECREASED GLUCOSE; Start 12/24/18 at 10:30 Glucagon (Glucagen) 1 mg Q15M PRN IM DECREASED GLUCOSE; Start 12/24/18 at 10:30 Glucose (Glutose) 15 gm Q15M PRN BUCCAL DECREASED GLUCOSE; Start 12/24/18 at 10:30 Polyethylene Glycol (Miralax) 17 gm DAILY PO Last administered on 01/01/19 08:10; Admin Dose 17 GM; Start 12/24/18 at 16:30 Docusate Sodium (Colace) 100 mg BID PO Last administered on 01/01/19 20:25; Admin Dose 100 MG; Start 12/24/18 at 21:00 Bisacodyl (Dulcolax Supp) 10 mg DAILY PRN [place] CONSTIPATION; Start 12/25/18 at 16:00 Leflunomide (Arava) 10 mg DAILY PO Last administered on 01/02/19 08:23; Admin Dose 10 MG; Start 12/26/18 at 09:00 Hydralazine HCl (Apresoline) 10 mg Q4H PRN IV ELEVATED SYSTOLIC BP Last administered on 12/31/18 20:48; Admin Dose 10 MG; Start 12/26/18 at 22:00 Meclizine HCl (Antivert) 12.5 mg TID PO Last administered on 01/02/19 08:23; Admin Dose 12.5 MG; Start 12/29/18 at 13:00 Metoclopramide HCl (Reglan) 10 mg Q8 PO Last administered on 01/02/19 06:29; Admin Dose 10 MG; Start 12/30/18 at 14:00 Clindamycin HCl/ Dextrose 50 ml @ 50 mls/hr Q8 IVPB Last administered on 01/02/19 06:29; Admin Dose 50 MLS/HR; Start 12/30/18 at 22:00 Atorvastatin Calcium (Lipitor) 20 mg HS PO Last administered on 01/01/19 20:26; Admin Dose 20 MG; Start 12/31/18 at 21:00 Assessment/Plan Hospital Course (Demo Recall) 1. Abnormal troponin consistent with non-ST elevation myocardial infarction: Probably type II. Given her risk factors including diabetes coronary artery disease cannot be ruled out 2. S/P Sepsis 3. Acute renal failure on chronic kidney disease: improved now 4. History of diabetes 5. Morbid obesity 6. Hypertension 7. History of P-atrial fibrillation on Eliquis 8. ? vertigo Recommendations: We will continue with the optimal medical therapy only at this point given her request. She has refused cardiac work-up including coronary angiography and stress testing. Aspirin will be continued. Anticoagulation for now will be continued. Antibiotic management as per internal medicine . on IV abx now PT as tolerated f/u renal fx and renal consult rec thank you for this referral. EITAN EDMONDSON MD [facility] EITAN EDMONDSON MD Jan 02, 2019 09:25
[2019-01-02 11:44] VITALS: BP 163/82; PULSE 60; RESP 20
[2019-01-02] MEDS ORDERED: LIDOCAINE 1% (MPF) 5 ML VIAL SC ONE (12:00)
[2019-01-02] MEDS ORDERED: ASPI-831 PO (12:09)
[2019-01-02] MEDS ORDERED: APIX5TAB PO (12:09)
[2019-01-02] MEDS ORDERED: METO-319 PO (12:09)
--- NOTE | 2019-01-02 12:14 | DS ---
Date/Time of Note Date/Time of Note DATE: 01/02/19 TIME: 12:14 Discharge Summary Admission/Discharge Info Admit Date/Time December 23, 2018 at 20:05 Discharge Date/Time Patient Condition: Stable Hospital Course Patient is a female with a past medical history significant for rheumatoid arthritis, atrial fibrillation, hypertension, diabetes mellitus, BPPV, who presents to [facility] and diagnosed with non-ST elevated MN as well as MRSA bacteremia. For patient's MRSA bacteremia patient will need to continue clindamycin at the current dose until the last dose on January 08, 2019. For patient's non-ST elevation MN, patient was seen by cardiology, however patient refused stress test or cardiac catheterization. Patient currently has no chest pain however will need to be on cardiac medications including aspirin. Patient also does have a history of A. fib and will continue her Eliquis and other rate controlling medication per pump installer. Patient is taking a variety of medications for her rheumatoid arthritis will continue to do so. Patient is to continue her other medications. It is recommended that due to patient's refusal of cardiac work-up, she she needs to see a pump installer as soon as possible in the outpatient setting. Patient will need to follow-up as well with her primary care provider as soon as possible as well. Of note patient did have some acute kidney injury and was seen by equal opportunity representative. However patient's creatinine did stabilize around 1.7 and at day of discharge it is 1.68. It is recommended that the patient see a equal opportunity representative in the outpatient setting as well and to get repeat renal blood work within a few days. Patient will not be discharged to outside rehab facility for further rehab. Discharge diagnosis Non-ST elevated MN, stable, no chest pain MRSA bacteremia, on IV antibiotics until January 08, 2019 BPPV, stable Acute on chronic heart failure with preserved ejection fraction Diabetes mellitus Hypertension Atrial fibrillation, on Eliquis Rheumatoid arthritis Home Meds Reported Medications Clonidine Hcl* (Clonidine Hcl*) 0.1 Mg Tab, 0.1 MG PO PRN PRN for ELEVATED BLOOD PRESSURE, TAB IF SBP GREATER THAN 160 12/24/18 Dulaglutide (Trulicity) 1.5 Mg/0.5 Ml Pen.injctr, 1.5 MG SQ EVERY Monday12/24/18 Insulin Glargine,Hum.rec.anlog (Basaglar Kwikpen U-100) 100 Unit/1 Ml Insuln.pen, 13 UNIT SC QAM, EA 12/24/18 Insulin Aspart* (Novolog Insulin Pen*) 100 Unit/Ml Soln, 7 UNIT SC AC A, EA 12/24/18 Insulin Aspart* (Novolog Insulin Pen*) 100 Unit/Ml Soln, 0 SC .SLIDING SCALE AC, EA 12/24/18 Latanoprost (Xalatan) 2.5 Ml Drops, 1 DROP BOTH EYES QHS, #1 BOTTLE 12/24/18 Tofacitinib Citrate (Xeljanz Xr) 11 Mg Tab.er.24h, 11 MG PO DAILY 12/24/18 Atorvastatin Calcium* (Atorvastatin Calcium*) 20 Mg Tablet, 20 MG PO QHS, #30 TAB 12/24/18 Oxybutynin Chloride* (Ditropan* XL) 5 Mg Tabsr, 5 MG PO QHS, TAB.SA 12/24/18 Metoprolol Succinate* (Toprol XL*) 50 Mg Tab.er.24h, 50 MG PO BID, #30 TAB 12/24/18 Leflunomide* (Arava*) 10 Mg Tablet, 10 MG PO DAILY, TAB 12/24/18 Apixaban* (Eliquis*) 2.5 Mg Tablet, 2.5 MG PO BID, TAB 12/24/18 Amiodarone Hcl* (Amiodarone Hcl*) 100 Mg Tablet, 100 MG PO BID, #30 TAB 12/24/18 Gabapentin* (Gabapentin*) 100 Mg Capsule, 100 MG PO TID, #90 CAP 12/24/18 Ergocalciferol (Vitamin D2) (VITAMIN D2) 2,000 Unit Tablet, 2000 UNIT PO DAILY, TAB 12/24/18 Tramadol Hcl* (Ultram*) 50 Mg Tablet, 100 MG PO Q12 PRN for PAIN, TAB 12/24/18 Prednisone* (Prednisone*) 1 Mg Tablet, 3 MG PO DAILY, TAB 12/24/18 Primary Care Provider Not On Staff Doctor Time spent on discharge: > 30 minutes Pending Labs Laboratory Tests Test 01/01/19 17:34 01/01/19 20:57 01/02/19 06:03 01/02/19 08:09 Bedside 121 172 85 Glucose mg/dL (70-220) mg/dL (70-220) mg/dL (70-220) White Blood 6.7 Count 10^3/ul (4.8-1 0.8) Red Blood 3.13 Count 10^6/ul (4.20- 5.40) Hemoglobin 9.6 g/dl (12.0-16. 0) Hematocrit 31.4 % (37.0-47.0) Mean 100.3 Corpuscular fl (82.0-101.0 Volume ) Mean 30.7 Corpuscular pg (29.0-33.0) Hemoglobin Mean 30.6 Corpuscular g/dl (32.0-37. Hemoglobin Conc 0) ent Red Cell 14.0 Distribution % (11.5-14.5) Width Platelet Count 296 10^3/UL (140-4 15) Mean Platelet 9.5 Volume fl (7.4-10.4) Immature 0.800 Granulocytes % % (0.001-0.429 ) Neutrophils % 57.5 % (39.0-77.0) Lymphocytes % 28.1 % (15.0-51.0) Monocytes % 10.5 % (0.0-11.0) Eosinophils % 2.3 % (0.0-7.0) Basophils % 0.8 % (0.0-2.0) Nucleated Red 0.0 Blood Cells % /100WBC (0.0-0 .0) Immature 0.050 Granulocytes # 10^3/ul (0.0-0 .031) Neutrophils # 3.8 10^3/ul (1.6-7 .5) Lymphocytes # 1.9 10^3/ul (0.8-2 .9) Monocytes # 0.7 10^3/ul (0.3-0 .9) Eosinophils # 0.2 10^3/ul (0.0-0 .5) Basophils # 0.1 10^3/ul (0.0-0 .1) Nucleated Red 0.0 Blood Cells # 10^3/ul (0.0-0 .0) Sodium Level 142 mmol/L (135-14 4) Potassium 3.9 Level mmol/L (3.5-5. 1) Chloride Level 107 mmol/L (97-110 ) Carbon Dioxide 31 Level mmol/L (21-31) Anion Gap 4 (5-13) Blood Urea 20 Nitrogen mg/dl (7-20) Creatinine 1.68 mg/dl (0.44-1. 00) Est Glomerular 31 Filtrat mL/min (>60) Rate mL/min Glucose Level 79 mg/dl (70-220) Calcium Level 8.6 mg/dl (8.4-10. 2) Phosphorus 4.7 Level mg/dl (2.5-4.9 ) Magnesium 2.1 Level mg/dl (1.7-2.5 ) Test 01/02/19 11:50 Bedside 127 Glucose mg/dL (70-220) ADRIAN GORDON Jan 02, 2019 12:14
[2019-01-02 12:28] VITALS: PULSE 58
--- NOTE | 2019-01-02 13:48 | PN ---
DATE: 01/02/2019 SUBJECTIVE: The patient is stable. No events overnight. No fevers, chills, nausea, vomiting. OBJECTIVE: VITAL SIGNS: Blood pressure is 135/58, pulse 61, respirations 20, temperature 98.5. HEENT: Head is normocephalic. NECK: Supple. HEART: Regular rate. LUNGS: Show diminished breath sounds at the base. ABDOMEN: Soft, nontender to palpation without rebound or guarding. EXTREMITIES: Negative for clubbing, cyanosis. No edema. DERMATOLOGIC: No rashes. MUSCULOSKELETAL: No joint effusion. NEUROLOGIC: No change in exam. MEDICATIONS: Have been reviewed. LABORATORY DATA: Have been reviewed. ASSESSMENT AND PLAN: 1. Nonoliguric acute kidney injury on top of chronic kidney disease with unknown baseline creatinine . Etiology of acute kidney injury is secondary to sepsis, hemodynamics. The patient's renal functio n has been fluctuating but appears to be stabilizing around creatinine of 1.5 to 1.7 mg/dL. At this point, continue current treatment plans, supportive care, renally dose all medications. 2. Anemia. Monitor hemoglobin and hematocrit levels. 3. Mineral bone disorder. Monitor calcium and phosphorus levels. 4. Acute on chronic diastolic heart failure. The patient appears euvolemic on exam. Continue to ho ld diuretic therapy. 5. Non-ST elevation myocardial infarction. Continue to medical management. 6. Diabetes. Continue current insulin regimen. 7. Atrial fibrillation. Continue medical management. 8. Sepsis secondary to pneumonia. Continue current antibiotic regimen. 9. History of rheumatoid arthritis. Dictated By: AVE SOFIA DO NR/NTS Conf#: [id number] DID#: [id number] CC: ADRIAN GORDON MD; DONG MARLEY MD; WILLIE GLEASON MD;*EndCC*
--- NOTE | 2019-01-02 15:49 | CONS ---
Assessment/Plan Assessment/Plan Hospital Course (Demo Recall) All noted. No acute events, patient is awake and looks comfortable, no fevers overnight Microbiology: Blood culture on admission grew MRSA, urine culture grew Viki albicans, repeat blood cultures negative. Chest x-ray on admission revealed bilateral perihilar and lower lobe hazy opacification suggestive of interstitial pulmonary edema, less likely pneumonia Antimicrobials: Clindamycin Indwelling: Ricardo catheter PICC line Physical examination: Morbidly obese well-developed elderly woman who is awake in no distress. Head atraumatic normocephalic sclera nonicteric. Neck is obese. Chest rise symmetrical, breath sounds diminished bases. Heart: S1-S2. Abdomen soft bowel sounds present. Extremities without cyanosis. Assessment: 1. Status post sepsis, present on admission 2. MRSA bacteremia? etiology. No vegetations per 2D echo 3. Rheumatoid arthritis 4. Morbid obesity 5. Possible pneumonia 6. NSTEMI/CHF exacerbation 7. Diabetes 8. Acute kidney injury Plan: Stable, continue abx==> last dose 01/08 Consultation Date/Type/Reason Admit Date/Time December 23, 2018 at 20:05 Initial Consult Date 12/24/18 Type of Consult id Requesting Provider: LESLIE PERES MD Date/Time of Note DATE: 01/02/19 TIME: 15:49 Exam/Review of Systems Exam Vitals Vital Signs Date Temp Pulse Resp B/P (MAP) Pulse Ox O2 O2 Flow FiO2 Time Delivery Rate 01/02/19 58 12:28 01/02/19 98.7 20 163/82 95 11:44 (109) 01/02/19 Room Air 07:15 12/31/18 21 20:48 12/30/18 1.0 20:35 Intake and Output 01/01/19 01/01/19 01/02/19 1414:59 22:59 06:59 IntakeIntake Total 960 ml 300 ml OutputOutput Total 250 ml 3 ml BalanceBalance 710 ml 297 ml Results Result Diagram: 01/02/19 0603 01/02/19 0603 Results 24hrs Laboratory Tests Test 01/01/19 17:34 01/01/19 20:57 01/02/19 06:03 01/02/19 08:09 Bedside Glucose 121 172 85 White Blood Count 6.7 Red Blood Count 3.13 L Hemoglobin 9.6 L Hematocrit 31.4 L Mean Corpuscular Volume 100.3 Mean Corpuscular 30.7 Hemoglobin Mean Corpuscular 30.6 L Hemoglobin Concent Red Cell Distribution 14.0 Width Platelet Count 296 Mean Platelet Volume 9.5 Immature Granulocytes % 0.800 H Neutrophils % 57.5 Lymphocytes % 28.1 Monocytes % 10.5 Eosinophils % 2.3 Basophils % 0.8 Nucleated Red Blood 0.0 Cells % Immature Granulocytes # 0.050 H Neutrophils # 3.8 Lymphocytes # 1.9 Monocytes # 0.7 Eosinophils # 0.2 Basophils # 0.1 Nucleated Red Blood 0.0 Cells # Sodium Level 142 Potassium Level 3.9 Chloride Level 107 Carbon Dioxide Level 31 Anion Gap 4 L Blood Urea Nitrogen 20 Creatinine 1.68 H Est Glomerular Filtrat 31 L Rate mL/min Glucose Level 79 Calcium Level 8.6 Phosphorus Level 4.7 Magnesium Level 2.1 Test 01/02/19 11:50 Bedside Glucose 127 Medications Medication Current Medications Ondansetron HCl (Zofran Inj) 4 mg Q6H PRN IV NAUSEA AND/OR VOMITING Last administered on 12/30/18at 05:51; Admin Dose 4 MG; Start 12/23/18 at 20:30 Albuterol/ Ipratropium (Duoneb) 3 ml Q2H RESP THERAPY PRN NEB SHORTNESS OF BREATH; Start 12/23/18 at 20:30 Nitroglycerin (Nitroglycerin (Sl Tab) 0.4 Mg) 1 tab Q5M PRN SL CHEST PAIN; Start 12/23/18 at 20:30 Acetaminophen (Tylenol Liquid) 650 mg Q6H PRN PO PAIN LEVEL 1-3 OR FEVER Last administered on 12/24/18at 06:07; Admin Dose 650 MG; Start 12/23/18 at 20:30 Pantoprazole (Protonix Tab) 40 mg DAILY@06 PO Last administered on 01/02/19at 06:29; Admin Dose 40 MG; Start 12/24/18 at 06:00 Apixaban (Eliquis) 5 mg BID PO Last administered on 01/02/19at 08:21; Admin Dose 5 MG; Start 12/24/18 at 21:00 Amiodarone HCl (Cordarone) 100 mg DAILY PO Last administered on 01/02/19at 08:22; Admin Dose 100 MG; Start 12/24/18 at 09:30 Metoprolol Succinate (Toprol Xl) 50 mg DAILY PO Last administered on 01/02/19 08:23; Admin Dose 50 MG; Start 12/24/18 at 09:30 Prednisone (Prednisone) 3 mg DAILY PO Last administered on 01/02/19 08:22; Admin Dose 3 MG; Start 12/24/18 at 10:00 Aspirin (Aspirin) 81 mg DAILY PO Last administered on 01/02/19 08:21; Admin Dose 81 MG; Start 12/24/18 at 09:30 Tramadol HCl (Ultram) 100 mg Q12 PO Last administered on 01/02/19 08:28; Admin Dose 100 MG; Start 12/24/18 at 10:00 Gabapentin (Neurontin) 100 mg BID PO Last administered on 01/02/19 08:24; Admin Dose 100 MG; Start 12/24/18 at 10:00 Insulin Aspart (Novolog Insulin Pen) NOVOLOG *MILD* ALGORITHM WITH MEALS BEDTIME SC Last administered on 12/28/18 20:26; Admin Dose 1 UNIT; Start 12/24/18 at 11:30 Patient Own Medication 1 ea DAILY PO Last administered on 01/02/19 08:24; Admin Dose 1 EA; Start 12/24/18 at 14:00 Miscellaneous Information 1 ea NOTE XX ; Start 12/24/18 at 10:30 Glucose (Glutose) 15 gm Q15M PRN PO DECREASED GLUCOSE; Start 12/24/18 at 10:30 Glucose (Glutose) 22.5 gm Q15M PRN PO DECREASED GLUCOSE; Start 12/24/18 at 10:30 Dextrose (D50w Syringe) 25 ml Q15M PRN IV DECREASED GLUCOSE; Start 12/24/18 at 10:30 Dextrose (D50w Syringe) 50 ml Q15M PRN IV DECREASED GLUCOSE; Start 12/24/18 at 10:30 Glucagon (Glucagen) 1 mg Q15M PRN IM DECREASED GLUCOSE; Start 12/24/18 at 10:30 Glucose (Glutose) 15 gm Q15M PRN BUCCAL DECREASED GLUCOSE; Start 12/24/18 at 10:30 Polyethylene Glycol (Miralax) 17 gm DAILY PO Last administered on 01/01/19 08:10; Admin Dose 17 GM; Start 12/24/18 at 16:30 Docusate Sodium (Colace) 100 mg BID PO Last administered on 01/01/19 20:25; Admin Dose 100 MG; Start 12/24/18 at 21:00 Bisacodyl (Dulcolax Supp) 10 mg DAILY PRN [place] CONSTIPATION; Start 12/25/18 at 16:00 Leflunomide (Arava) 10 mg DAILY PO Last administered on 01/02/19 08:23; Admin Dose 10 MG; Start 12/26/18 at 09:00 Hydralazine HCl (Apresoline) 10 mg Q4H PRN IV ELEVATED SYSTOLIC BP Last administered on 12/31/18 20:48; Admin Dose 10 MG; Start 12/26/18 at 22:00 Meclizine HCl (Antivert) 12.5 mg TID PO Last administered on 01/02/19 14:45; Admin Dose 12.5 MG; Start 12/29/18 at 13:00 Metoclopramide HCl (Reglan) 10 mg Q8 PO Last administered on 01/02/19 14:45; Admin Dose 10 MG; Start 12/30/18 at 14:00 Clindamycin HCl/ Dextrose 50 ml @ 50 mls/hr Q8 IVPB Last administered on 01/02/19 14:45; Admin Dose 50 MLS/HR; Start 12/30/18 at 22:00 Atorvastatin Calcium (Lipitor) 20 mg HS PO Last administered on 01/01/19 20:26; Admin Dose 20 MG; Start 12/31/18 at 21:00 Amlodipine Besylate (Norvasc) 5 mg DAILY PO ; Start 01/02/19 at 16:00; Status JANIS QUEZADA NP Jan 02, 2019 15:49
[2019-01-02] MEDS: hydrALAzine 20 MG INJ IV PRN (15:50)
[2019-01-02] MEDS ORDERED: AMLODIPINE 5 MG TAB PO SCH (16:00)
== END 2019-01-02 16:15 | DRG 871 ==
LOC: E/R 18:42 → ICU 20:05 → TEL 12-25 19:36
PROVIDERS: ADMIT Internal Medicine; ATTEND Internal Medicine
PROC: 5A09357 Assistance with Respiratory Ventilation, Less than 24 Consecutive Hours, Continuous Positive Airway Pressure (ICD-10-PCS; 2018-12-24)
PROC: 4A033R1 Measurement of Arterial Saturation, Peripheral, Percutaneous Approach (ICD-10-PCS; 2018-12-24)
PROC: 05HY33Z Insertion of Infusion Device into Upper Vein, Percutaneous Approach (ICD-10-PCS; principal; 2019-01-02)
PROC: B54NZZA Ultrasonography of Left Upper Extremity Veins, Guidance (ICD-10-PCS; 2019-01-02)
DX: A41.02 Sepsis due to Methicillin resistant Staphylococcus aureus (principal); J18.9 Pneumonia, unspecified organism; I21.A1 Myocardial infarction type 2; I50.33 Acute on chronic diastolic (congestive) heart failure; J96.01 Acute respiratory failure with hypoxia; E87.2 Acidosis; N17.9 Acute kidney failure, unspecified; I13.0 Hypertensive heart and chronic kidney disease with heart failure and stage 1 through stage 4 chronic kidney disease, or unspecified chronic kidney disease; L97.919 Non-pressure chronic ulcer of unspecified part of right lower leg with unspecified severity; I16.0 Hypertensive urgency; M06.9 Rheumatoid arthritis, unspecified; I48.0 Paroxysmal atrial fibrillation; J45.909 Unspecified asthma, uncomplicated; K59.00 Constipation, unspecified; N18.9 Chronic kidney disease, unspecified; E11.22 Type 2 diabetes mellitus with diabetic chronic kidney disease; E66.01 Morbid (severe) obesity due to excess calories; D64.9 Anemia, unspecified; Z68.39 Body mass index [BMI] 39.0-39.9, adult; H81.10 Benign paroxysmal vertigo, unspecified ear; Z88.0 Allergy status to penicillin; Z79.01 Long term (current) use of anticoagulants
CPT/HCPCS: 36415; 36600; 71045; 76705; 76775; 76937; 80048; 80053; 80061; 80069; 80202; 81001; 81003; 82043; 82550; 82553; 82565; 82803; 82962; 83036; 83605; 83690; 83735; 83880; 84100; 84155; 84300; 84484; 84520; 85025; 85610; 85730; 87086; 87400; 89190; 93005; 93306; 94660; 96374; 96375; 97110; 97116; 97162; 97167; 97530; J0360; J0696; J1650; J1815; J1940; J2405; J3370; J3475; J3480; J7042; J7050; J7512; P9047